=== PATIENT | female | born 1965 | race Caucasian/White ===

== ENCOUNTER 2020-06-29 15:24 | Inpatient (IN) | payer MEDICAID, SELFPAY ==
--- NOTE | 2020-06-29 | ECG_ITS ---
Test Reason : CHEST PAIN Blood Pressure : / mmHG Vent. Rate : 073 BPM Atrial Rate : 073 BPM P-R Int : 106 ms QRS Dur : 086 ms QT Int : 414 ms P-R-T Axes : 025 -20 -10 degrees QTc Int : 456 ms Sinus rhythm with short FL Low voltage QRS ST & T wave abnormality, consider anterior ischemia Abnormal ECG Referred By: Rolanda Juan Electronically Signed By:MARIA VICTORIA MONTOYA MD
[2020-06-29 15:48] VITALS: BP 100/40; BP 101/39; PULSE 70; PULSE 77; RESP 18; TEMP 36.6; O2SAT 94; O2SAT 98; BMI 40.6
--- NOTE | 2020-06-29 16:06 | PC.NURSE ---
pt changed over in hospital attire, noticeable left leg shorting pt states that few days ago started with pain and unable to move the leg and having hip area pain as well
--- NOTE | 2020-06-29 16:09 | XR_ITS ---
EXAMINATION: XR CHEST CLINICAL INFORMATION: Chest pain COMPARISON: None TECHNIQUE: Frontal view of the chest was obtained. FINDINGS: The cardiac and mediastinal contours are normal. There is a atelectasis or infiltrate at the left lung base. There may be subsegmental atelectasis at the right lung base as well. There is no pleural effusion or pneumothorax. There is a right jugular port with tip projecting over the SVC. There are degenerative changes of the spine. XR/XR chest 1V IMPRESSION: Atelectasis or infiltrate at the left lung base. Subsegmental atelectasis at the right lung base.
--- NOTE | 2020-06-29 16:09 | ECG_ITS ---
Test Reason : PE Blood Pressure : / mmHG Vent. Rate : 083 BPM Atrial Rate : 083 BPM P-R Int : 126 ms QRS Dur : 088 ms QT Int : 388 ms P-R-T Axes : 086 -24 -10 degrees QTc Int : 455 ms Normal sinus rhythm Anterior T wave inversion Abnormal ECG When compared to the previous EKG of No significant changes seen Referred By: Rolanda Juan Electronically Signed By:MARIA VICTORIA MONTOYA MD
--- NOTE | 2020-06-29 16:17 | ED_ITS ---
HPI - Chest Pain General Chief Complaint: Chest Pain Stated Complaint: chest pain Time Seen by Provider: 06/29/20 16:08 Source: patient Mode of arrival: EMS Limitations: no limitations History of Present Illness HPI narrative: 55-year-old female with history of metastatic pancreatic cancer, presented today with right side chest pain with right arm tingling started around 2 hours before presentation, patient also had port a cath placed yesterday in the right chest wall, patient never had chest pain before the Por t-A-Cath placement. Patient describes the pain as intermittent pain, described as dull aches on the right side, no radiation (tingling in the right arm), no other associated symptoms, pain is not exertional related, no other associated symptoms no shortness of breath. Patient also complaining of left lower extremities pain for a while, patient unable to ambulate, patient stated that no fall or trauma. Patient was seen recently at [facility] ER for left lower extremities pain and unable to ambulate on June 25 (record was requested). Related Data Home Medications Medication Instructions Recorded Confirmed acetaminophen 650 mg Q4-5H PRN 06/29/20 06/29/20 albuterol sulfate [ProAir HFA] INHALATION PRN 06/29/20 apixaban 5 mg PO BID 06/29/20 06/29/20 atorvastatin 20 mg PO BEDTIME 06/29/20 06/29/20 metformin 1,000 mg PO BID 06/29/20 06/29/20 metoprolol tartrate 50 mg PO BID 06/29/20 06/29/20 morphine 15 mg PO Q12H 06/29/20 06/30/20 morphine 15 mg PO Q4H PRN 06/29/20 06/30/20 morphine 30 mg PO Q12H 06/29/20 06/30/20 multivitamin 1 tab PO DAILY 06/29/20 06/30/20 sitagliptin [Januvia] 100 mg PO DAILY 06/29/20 06/29/20 Allergies Allergy/AdvReac Type Severity Reaction Status Date / Time aspirin [ASA] Allergy Unknown Verified 06/29/20 15:54 erythromycin base Allergy Itching Verified 06/29/20 15:54 latex Allergy Itching Verified 06/29/20 15:54 Penicillins Allergy Itching Verified 06/29/20 15:54 Review of Systems Review of Systems: All other systems are reviewed and are negative Constitutional: Reports as per HPI and Reports no additional constitutional complaints Eyes: Reports as per HPI and Reports no additional eye complaints Reports system reviewed and no additional complaints, except as documented Cardiovascular: Reports as per HPI and Reports no additional cardiovascular complaints Respiratory: Reports as per HPI and Reports no additional respiratory complaints Gastrointestinal: Reports as per HPI and Reports no additional gastrointestinal complaints Genitourinary: Reports no additional female genitourinary complaints Musculoskeletal: Patient had left lower extremity pain for about 6 months. Skin/Breast: Reports system reviewed and no additional complaints, except as docu Psychiatric: Reports no additional psychiatric complaints Endocrine: Reports no additional endocrine complaints Hematologic/Lymphatic: Reports no additional hematologic/lymphatic complaints Allergic/Immunologic: Reports no additional allergic/immunologic complaints Reports system reviewed and no additional complaints, except as documented and Reports Abnormal speech present [facility] Past Medical History Medical History Diabetic acidosis High cholesterol Neoplasm Social History Social History Alcohol intake: never Smoking Status: Never smoker Use of substances other than those prescribed or required for medical reasons: No Advance Directives: No Advance Directives Information Provided: Yes Physical Exam Vital Signs: Vital Signs: Last Vital Signs Temp 97.8 F 06/29/20 15:48 Pulse 80 06/29/20 22:50 Resp 17 06/29/20 22:50 BP 95/45 L 06/29/20 22:50 Pulse Ox 99 06/29/20 22:50 Body Mass Index 38.7 Vital signs have been reviewed as normal and appeared to be correct. Blood pressure normal. Heart rate normal. Respiration rate normal. Temperature normal. Oxygen saturation normal. Appearance: Alert. Oriented X3. No acute distress. Head: Normal external exam. Normocephalic. Atraumatic. No Coello signs noted. No raccoon eyes noted Eyes: PERRLA. EOMI. Conjunctiva and sclera normal. Eyelids normal. ENT: EAC normal. TM's Normal. Pharynx normal. Uvula midline. Moist mucous membranes. No trismus noted. No drooling noted. No muffled voice noted. Neck: Normal inspection. Neck supple. FROM. No adenopathy. Thyroid Normal. No meningeal signs. No neck mass noted. CVS: Normal heart rate and rhythm. Heart sound normal. No murmurs noted. Pulses normal throughout. Respiratory: Right chest wall port a cath, incision appeared dry and clean and intact, mild ecchymosis around the area, mild focal tenderness. No respiratory distress. Painless inspiration. Breath sounds normal. No wheezes/rales/rhonchi noted. No accessory muscle usage noted or decreased air movement noted. Abdomen: Soft and nontender. Bowel sounds normal in all 4 quadrants. No distention noted. No organomegaly noted. No visible injury noted. Back: No CVA tenderness. Full range of motion noted. Skin: Skin warm and dry. Normal skin color. Normal skin turgor. No rashes/lesions/lacerations noted. Extremities: No lower extremity edema. Extremities exhibit normal range of motion. Extremities nontender. Neuro: Oriented X 3. No motor deficit. No sensory deficit. Reflexes normal. Course Course Course Narrative: Assessment and plan. 55-year-old female with history of metastatic pancreatic cancer presented with right-sided chest pain, patient also complained of left hip pain with no history of trauma or fall. 1. Small peripheral pulmonary emboli, will start patient on heparin. 2. Pathological fracture of left hip, case discussed with ortho will admit the patient for possible surgical repair of the left hip. 3. Leukocytosis waiting for UA to determine if it is secondary to infection or secondary to chemotherapy. Will admit the patient to the medical service with orthopedic consultation. Reevaluation(s) Reevaluation #1: Patient with borderline hypotension, IV fluid was initiated, patient with leukocytosis and slight elevation of lactic acid which is secondary to patient malignancy status, no source of infection was detected. Time: 23:09 Reevaluation #2: Records was obtained from [facility], patient had white count of 24,000, 4 days ago, and indicated systolic blood pressure in the 90s. As probably at baseline for the patient. Reevaluation #3: Patient is on a Eliquis (patient was not aware), heparin drip will be discontinued. Time: 02:12 MDM - Chest Pain Lab Data Result diagrams: 06/29/20 17:37 06/29/20 17:37 Labs: Lab Results 06/29/20 06/29/20 06/29/20 Range/Units 17:37 17:37 17:37 WBC 26.9 H (4.8-10.8) X10*3/uL RBC 3.95 L (4.20-5.50) X10*6/uL Hgb 9.3 L (12.0-16.0) g/dl Hct 30.3 L (37-47) % MCV 76.7 L (80-98) fL MCH 23.5 L (27.0-33.0) pg MCHC 30.7 L (31.0-35.0) g/dl RDW 24.6 H (11.0-16.0) % Plt Count 146 L (160-400) X10*3/uL MPV Not Reportable Immature Gran % (Auto) 1.4 H (0.0-0.4) % Neut % (Auto) 90.7 H (45-73) % Lymph % (Auto) 3.2 L (20-40) % [place] % (Auto) 4.6 (2-11) % Eos % (Auto) 0.0 (0-4) % Baso % (Auto) 0.1 (0-2) % Lymph # (Auto) 0.9 L (1.2-4.9) X10*3/uL [place] # (Auto) 1.2 (0.1-1.2) X10*3/uL Eos # (Auto) 0.0 (0.0-0.4) X10*3/uL Baso # (Auto) 0.0 (0.0-0.2) X10*3/uL Abs Immat Gran (auto) 0.39 H (0.00-0.03) X10*3/uL Absolute Neuts (auto) 24.4 H (2.0-8.3) X10*3/uL Absolute Nucleated RBC 0.030 H (0.0-0.012) X10*3/uL Nucleated RBC % (auto) 0.1 (0.0-0.2) /100WBC Smear Tech's Comments VERIFIED PT 35.2 H (10.8-13.0) SEC INR 2.9 H (0.9-1.1) APTT 26.8 (24.1-38.0) SEC D-Dimer 3723 NG/ML Sodium 133 L (135-145) mmol/L Potassium 4.2 (3.3-5.1) mmol/l Chloride 92 L (96-108) mmol/L Carbon Dioxide 32 H (22-29) mmol/L Anion Gap 13 (12-20) BUN 22 H (9-16) mg/dL Creatinine 0.67 (0.5-1.4) mg/dL Estim Creat Clear Calc 100.0 Estimated GFR > 60 Random Glucose 193 H (60-115) mg/dL Lactic Acid (0.5-2.0) mmol/L Lactic Acid Fup @ 2Hr (0.5-2.0) mmol/L Lactic Acid Fup @ 4Hr (0.5-2.0) mmol/L Calcium 8.2 L (8.4-10.2) mg/dL Total Bilirubin 1.4 H (0.0-1.0) mg/dL Direct Bilirubin 1.1 H (0.0-0.5) mg/dL AST 94 H (5-31) U/L ALT 33 H (0-31) U/L Alkaline Phosphatase 718 H (39-117) U/L Troponin I High Sens (<3.5-17.0) ng/L B-Natriuretic Peptide (<100) pg/mL Total Protein 5.3 L (6.5-8.0) g/dL Albumin 2.5 L (3.5-5.0) g/dL Lipase 7 L (8-78) U/L Urine Color Urine Appearance Urine pH (5.0-8.0) Ur Specific [place] (1.005-1.025) Urine Protein (NEG-TRACE) MG/DL Urine Glucose (UA) (NEG) MG/DL Urine Ketones (NEG) MG/DL Urine Blood (NEG) Urine Nitrite (NEG) Ur Leukocyte Esterase (NEG) Urine RBC (0) /HPF Urine WBC (0-4) /HPF Ur Squamous Epith Cells /LPF Urine Bacteria /LPF COVID-19 (MARCELO) (Negative) COVID-19 Clin Com Blood Type Antibody Screen 06/29/20 06/29/20 06/29/20 Range/Units 17:37 19:46 21:59 WBC (4.8-10.8) X10*3/uL RBC (4.20-5.50) X10*6/uL Hgb (12.0-16.0) g/dl Hct (37-47) % MCV (80-98) fL MCH (27.0-33.0) pg MCHC (31.0-35.0) g/dl RDW (11.0-16.0) % Plt Count (160-400) X10*3/uL MPV Immature Gran % (Auto) (0.0-0.4) % Neut % (Auto) (45-73) % Lymph % (Auto) (20-40) % [place] % (Auto) (2-11) % Eos % (Auto) (0-4) % Baso % (Auto) (0-2) % Lymph # (Auto) (1.2-4.9) X10*3/uL [place] # (Auto) (0.1-1.2) X10*3/uL Eos # (Auto) (0.0-0.4) X10*3/uL Baso # (Auto) (0.0-0.2) X10*3/uL Abs Immat Gran (auto) (0.00-0.03) X10*3/uL Absolute Neuts (auto) (2.0-8.3) X10*3/uL Absolute Nucleated RBC (0.0-0.012) X10*3/uL Nucleated RBC % (auto) (0.0-0.2) /100WBC Smear Tech's Comments PT (10.8-13.0) SEC INR (0.9-1.1) APTT (24.1-38.0) SEC D-Dimer NG/ML Sodium (135-145) mmol/L Potassium (3.3-5.1) mmol/l Chloride (96-108) mmol/L Carbon Dioxide (22-29) mmol/L Anion Gap (12-20) BUN (9-16) mg/dL Creatinine (0.5-1.4) mg/dL Estim Creat Clear Calc Estimated GFR Random Glucose (60-115) mg/dL Lactic Acid 2.6 H* (0.5-2.0) mmol/L Lactic Acid Fup @ 2Hr (0.5-2.0) mmol/L Lactic Acid Fup @ 4Hr (0.5-2.0) mmol/L Calcium (8.4-10.2) mg/dL Total Bilirubin (0.0-1.0) mg/dL Direct Bilirubin (0.0-0.5) mg/dL AST (5-31) U/L ALT (0-31) U/L Alkaline Phosphatase (39-117) U/L Troponin I High Sens 11.2 (<3.5-17.0) ng/L B-Natriuretic Peptide 306 H (<100) pg/mL Total Protein (6.5-8.0) g/dL Albumin (3.5-5.0) g/dL Lipase (8-78) U/L Urine Color Urine Appearance Urine pH (5.0-8.0) Ur Specific [place] (1.005-1.025) Urine Protein (NEG-TRACE) MG/DL Urine Glucose (UA) (NEG) MG/DL Urine Ketones (NEG) MG/DL Urine Blood (NEG) Urine Nitrite (NEG) Ur Leukocyte Esterase (NEG) Urine RBC (0) /HPF Urine WBC (0-4) /HPF Ur Squamous Epith Cells /LPF Urine Bacteria /LPF COVID-19 (MARCELO) Negative (Negative) COVID-19 Clin Com See Note Blood Type Antibody Screen 06/29/20 06/29/20 06/29/20 Range/Units 21:59 22:26 22:27 WBC (4.8-10.8) X10*3/uL RBC (4.20-5.50) X10*6/uL Hgb (12.0-16.0) g/dl Hct (37-47) % MCV (80-98) fL MCH (27.0-33.0) pg MCHC (31.0-35.0) g/dl RDW (11.0-16.0) % Plt Count (160-400) X10*3/uL MPV Immature Gran % (Auto) (0.0-0.4) % Neut % (Auto) (45-73) % Lymph % (Auto) (20-40) % [place] % (Auto) (2-11) % Eos % (Auto) (0-4) % Baso % (Auto) (0-2) % Lymph # (Auto) (1.2-4.9) X10*3/uL [place] # (Auto) (0.1-1.2) X10*3/uL Eos # (Auto) (0.0-0.4) X10*3/uL Baso # (Auto) (0.0-0.2) X10*3/uL Abs Immat Gran (auto) (0.00-0.03) X10*3/uL Absolute Neuts (auto) (2.0-8.3) X10*3/uL Absolute Nucleated RBC (0.0-0.012) X10*3/uL Nucleated RBC % (auto) (0.0-0.2) /100WBC Smear Tech's Comments PT (10.8-13.0) SEC INR (0.9-1.1) APTT (24.1-38.0) SEC D-Dimer NG/ML Sodium (135-145) mmol/L Potassium (3.3-5.1) mmol/l Chloride (96-108) mmol/L Carbon Dioxide (22-29) mmol/L Anion Gap (12-20) BUN (9-16) mg/dL Creatinine (0.5-1.4) mg/dL Estim Creat Clear Calc Estimated GFR Random Glucose (60-115) mg/dL Lactic Acid (0.5-2.0) mmol/L Lactic Acid Fup @ 2Hr 2.5 H* (0.5-2.0) mmol/L Lactic Acid Fup @ 4Hr (0.5-2.0) mmol/L Calcium (8.4-10.2) mg/dL Total Bilirubin (0.0-1.0) mg/dL Direct Bilirubin (0.0-0.5) mg/dL AST (5-31) U/L ALT (0-31) U/L Alkaline Phosphatase (39-117) U/L Troponin I High Sens (<3.5-17.0) ng/L B-Natriuretic Peptide (<100) pg/mL Total Protein (6.5-8.0) g/dL Albumin (3.5-5.0) g/dL Lipase (8-78) U/L Urine Color YELLOW Urine Appearance CLEAR Urine pH 5.5 (5.0-8.0) Ur Specific [place] 1.020 (1.005-1.025) Urine Protein NEG (NEG-TRACE) MG/DL Urine Glucose (UA) NEG (NEG) MG/DL Urine Ketones NEG (NEG) MG/DL Urine Blood 1+ H (NEG) Urine Nitrite NEG (NEG) Ur Leukocyte Esterase NEG (NEG) Urine RBC 0-2 (0) /HPF Urine WBC 0 (0-4) /HPF Ur Squamous Epith Cells TRACE /LPF Urine Bacteria NONE /LPF COVID-19 (MARCELO) (Negative) COVID-19 Clin Com Blood Type O Negative Antibody Screen NEGATIVE 06/30/20 Range/Units 01:11 WBC (4.8-10.8) X10*3/uL RBC (4.20-5.50) X10*6/uL Hgb (12.0-16.0) g/dl Hct (37-47) % MCV (80-98) fL MCH (27.0-33.0) pg MCHC (31.0-35.0) g/dl RDW (11.0-16.0) % Plt Count (160-400) X10*3/uL MPV Immature Gran % (Auto) (0.0-0.4) % Neut % (Auto) (45-73) % Lymph % (Auto) (20-40) % [place] % (Auto) (2-11) % Eos % (Auto) (0-4) % Baso % (Auto) (0-2) % Lymph # (Auto) (1.2-4.9) X10*3/uL [place] # (Auto) (0.1-1.2) X10*3/uL Eos # (Auto) (0.0-0.4) X10*3/uL Baso # (Auto) (0.0-0.2) X10*3/uL Abs Immat Gran (auto) (0.00-0.03) X10*3/uL Absolute Neuts (auto) (2.0-8.3) X10*3/uL Absolute Nucleated RBC (0.0-0.012) X10*3/uL Nucleated RBC % (auto) (0.0-0.2) /100WBC Smear Tech's Comments PT (10.8-13.0) SEC INR (0.9-1.1) APTT (24.1-38.0) SEC D-Dimer NG/ML Sodium (135-145) mmol/L Potassium (3.3-5.1) mmol/l Chloride (96-108) mmol/L Carbon Dioxide (22-29) mmol/L Anion Gap (12-20) BUN (9-16) mg/dL Creatinine (0.5-1.4) mg/dL Estim Creat Clear Calc Estimated GFR Random Glucose (60-115) mg/dL Lactic Acid (0.5-2.0) mmol/L Lactic Acid Fup @ 2Hr (0.5-2.0) mmol/L Lactic Acid Fup @ 4Hr 1.8 (0.5-2.0) mmol/L Calcium (8.4-10.2) mg/dL Total Bilirubin (0.0-1.0) mg/dL Direct Bilirubin (0.0-0.5) mg/dL AST (5-31) U/L ALT (0-31) U/L Alkaline Phosphatase (39-117) U/L Troponin I High Sens (<3.5-17.0) ng/L B-Natriuretic Peptide (<100) pg/mL Total Protein (6.5-8.0) g/dL Albumin (3.5-5.0) g/dL Lipase (8-78) U/L Urine Color Urine Appearance Urine pH (5.0-8.0) Ur Specific [place] (1.005-1.025) Urine Protein (NEG-TRACE) MG/DL Urine Glucose (UA) (NEG) MG/DL Urine Ketones (NEG) MG/DL Urine Blood (NEG) Urine Nitrite (NEG) Ur Leukocyte Esterase (NEG) Urine RBC (0) /HPF Urine WBC (0-4) /HPF Ur Squamous Epith Cells /LPF Urine Bacteria /LPF COVID-19 (MARCELO) (Negative) COVID-19 Clin Com Blood Type Antibody Screen Imaging Data Left hip x-ray: My impression: intertrochanteric left hip fracture which appears pathologic as described above. CTA chest: Radiologist's impression: . Small peripheral pulmonary emboli in the left lower lobe and bilateral upper lobes. No evidence of right heart strain. 2. Extensive bilateral airspace opacities. 3. Small dependent left pleural effusion. 4. Patchy enhancement of the parenchyma of the liver with subcapsular fluid around the liver. The liver is enlarged. 5. Most of the spleen has low density consistent with fluid with only a region of enhancement near the hilum. 6. Free fluid in the abdomen around the spleen. 7. Left adrenal nodule. Discharge Plan Discharge Clinical Impression: Chest pain Qualifiers: Chest pain type: unspecified Qualified Code(s): R07.9 - Chest pain, unspecified Pulmonary embolism Qualifiers: Chronicity: acute Closed fracture of left hip Qualifiers: Encounter type: initial encounter Qualified Code(s): S72.002A - Fracture of unspecified part of neck of left femur, initial encounter for closed fracture Patient Disposition: Admitted As Inpatient
[2020-06-29 17:38] VITALS: BP 94/46; PULSE 77; RESP 18; O2SAT 98
[2020-06-29 17:46] LABS: Basophils Percent Auto 0.1 % (0-2); NRBC Pct Auto 0.1 /100WBC (0.0-0.2); Neutrophils Percent Auto 90.7 % (45-73); SCAN SMEAR FLAG 1
[2020-06-29 17:48] LABS: Hematocrit 30.3 % (37-47); Hemoglobin 9.3 g/dl (12.0-16.0); Imm Gran Abs Auto 0.39 X10*3/uL (0.00-0.03); Imm Gran Pct Auto 1.4 % (0.0-0.4); Lymphocytes Absolute Auto 0.9 X10*3/uL (1.2-4.9); Lymphocytes Percent Auto 3.2 % (20-40); Mean Corpuscular HGB Conc 30.7 g/dl (31.0-35.0); Mean Corpuscular Hemoglobin 23.5 pg (27.0-33.0); Mean Corpuscular Volume 76.7 fL (80-98); Monocytes Absolute Auto 1.2 X10*3/uL (0.1-1.2); Monocytes Percent Auto 4.6 % (2-11); Neutrophils Absolute Auto 24.4 X10*3/uL (2.0-8.3); Platelet Count 146 X10*3/uL (160-400); Red Blood Count 3.95 X10*6/uL (4.20-5.50); Red Cell Distribution Width 24.6 % (11.0-16.0); White Blood Count 26.9 X10*3/uL (4.8-10.8)
[2020-06-29 17:50] LABS: MANUAL DIFF FLAG SCAN; PLT ABN DIST 1
--- NOTE | 2020-06-29 17:51 | XR_ITS ---
EXAMINATION: XR HIP, LEFT CLINICAL INFORMATION: Left hip pain. No trauma. History of metastatic disease. COMPARISON: None TECHNIQUE: Single view pelvis with 3 additional views of the left hip. FINDINGS: There is an intertrochanteric fracture of the left hip with marked varus angulation of the distal fracture fragment. The femur itself in this region appears abnormal with a mottled and thickened appearance to its cortex suggesting the possibility of an underlying metastatic lesion and a pathologic fracture. No other bone metastases are seen. No other pelvic fractures are seen. XR/XR hip LT w PEL1V IMPRESSION: Intertrochanteric left hip fracture which appears pathologic as described above.
[2020-06-29 18:03] LABS: D Dimer 3723 NG/ML
--- NOTE | 2020-06-29 18:05 | CT_ITS ---
EXAMINATION: CT ANGIOGRAM CHEST WITH AND WITHOUT CONTRAST (CT PULMONARY ANGIOGRAM FOR PE) CLINICAL INFORMATION: Right-sided chest pain with high elevation of D-dimer. COMPARISON: None TECHNIQUE: Prior to contrast administration, noncontrast localization images were obtained. Subsequently, multidetector volumetric imaging was performed from the thoracic inlet to below the diaphragms following the administration of 65 mL Omnipaque 350 intravenous contrast. No contrast reaction reported. Sagittal, coronal, and MIP oblique sagittal reformatted images were obtained on the CT workstation, uploaded to PACS, and reviewed. This CT examination was performed using dose optimization techniques as appropriate, variously including the following: *Automated exposure control *Adjustment of mA and/or kV according to patient size (this includes techniques or standardized protocols for targeted exams where dose is matched to indication/reason for exam; i.e. extremities or head) *Use of iterative reconstruction technique Total exam dose-length product 491 mGy-cm FINDINGS: QUALITY OF STUDY/CONTRAST BOLUS: Satisfactory. PULMONARY ARTERIES: There is a small pulmonary embolus in the left lower lobe tertiary branch. There is a small pulmonary embolus in the left upper lobe and right upper lobe peripheral branches of the pulmonary artery. THORACIC AORTA: No aneurysm or dissection. LUNGS: There are multifocal patchy alveolar airspace opacities involving all lobes. There is consolidation and volume loss at the dependent left lung base. PLEURA: There is a small volume left pleural effusion. MEDIASTINUM: The heart size is enlarged. There is no pericardial effusion. No mediastinal mass or significant lymphadenopathy. The thyroid is unremarkable. No evidence of septal bowing or right heart strain. CHEST WALL/AXILLAE: No axillary or internal mammary lymphadenopathy. OSSEOUS STRUCTURES: No acute or suspicious osseous abnormality. UPPER ABDOMEN: There is no evidence of contrast refluxing into the inferior vena cava to suggest elevated right heart pressure. The liver is enlarged. There is heterogeneous low attenuation of liver parenchyma. There is subcapsular fluid around the right lobe of the liver. This measures about 2 cm transverse. There is only a small region of enhancement of the central portion of the spleen. The spleen has a density measurement of 12 Hounsfield units consistent with fluid. The spleen is enlarged. There is streaky fluid around the spleen. The left adrenal gland is enlarged. There is a nodule measuring 1.8 cm transverse. The right adrenal gland is normal. There are vascular calcifications of the splenic artery. CT/CT angio chest PE protocol IMPRESSION: 1. Small peripheral pulmonary emboli in the left lower lobe and bilateral upper lobes. No evidence of right heart strain. 2. Extensive bilateral airspace opacities. 3. Small dependent left pleural effusion. 4. Patchy enhancement of the parenchyma of the liver with subcapsular fluid around the liver. The liver is enlarged. 5. Most of the spleen has low density consistent with fluid with only a region of enhancement near the hilum. 6. Free fluid in the abdomen around the spleen. 7. Left adrenal nodule. This critical result was discussed with Dr. Juan on 06/29/2020, 8:00 PM and it was ascertained that the content and urgency of the report was understood at the time of direct communication. VTE: Positive
[2020-06-29 18:06] LABS: SLIDE REVIEW VERIFIED
[2020-06-29 18:28] LABS: B Type Natriuretic Peptide 306 pg/mL (<100); Troponin-I High Sensitivity 11.2 ng/L (<3.5-17.0)
[2020-06-29 18:29] LABS: Alanine Aminotransferase 33 U/L (0-31); Albumin Level 2.5 g/dL (3.5-5.0); Alkaline Phosphatase 718 U/L (39-117); Anion Gap 13 (12-20); Aspartate Amino Transferase 94 U/L (5-31); Bilirubin Direct 1.1 mg/dL (0.0-0.5); Bilirubin Total 1.4 mg/dL (0.0-1.0); Blood Urea Nitrogen 22 mg/dL (9-16); Calcium 8.2 mg/dL (8.4-10.2); Carbon Dioxide 32 mmol/L (22-29); Chloride 92 mmol/L (96-108); Estimated Glomerular Filt Rate > 60; Glucose Random 193 mg/dL (60-115); Lipase 7 U/L (8-78); Potassium 4.2 mmol/l (3.3-5.1); Sodium 133 mmol/L (135-145); Total Protein 5.3 g/dL (6.5-8.0)
[2020-06-29] MEDS: iohexoL 350 MG/ML 100 ML INFUS..BTL IV (18:52)
[2020-06-29 20:29] LABS: Lactic Acid 2.6 mmol/L (0.5-2.0)
--- NOTE | 2020-06-29 20:31 | PC.NURSE ---
CONFIRMED HEPARIN IV PUSH AND DRIP WITH PHARMACY, OKAYED TO GIVE. LACTIC ACID 2.6. AWARE.
[2020-06-29 20:35] VITALS: BMI 38.7
[2020-06-29 20:37] LABS: INTERNATIONAL NORM RATIO 2.9 (0.9-1.1); Prothrombin Time 35.2 SEC (10.8-13.0)
[2020-06-29 20:40] LABS: Partial Thromboplastin Time 26.8 SEC (24.1-38.0)
[2020-06-29] MEDS: Heparin Sodium,Porcine 5,000 UNIT/ML VIAL 7448 UNIT IVPUSH (21:10)
--- NOTE | 2020-06-29 21:24 | PM.HPOR ---
History of Present Illness History of Present Illness Date of Service: 06/29/20 Chief complaint: chest pain Narrative: Edyta Anderson is a 55 year old female who presented to the ED earlier today with cc of right sided chest pain s/p port placement yesterday. She has a PMH of Pancreatic cancer with mets to the liver and lungs. She states she was diagnosed in October of 2019. She states about 5 months ago she started having pain in the left hip. She denies injury. She states up until right before [place] she was able to ambulate until one day she got up to use the bathroom and she noticed increased pain in the left hip and when she went to get off the toilet she was unable to do so. She called her roommate who tried to help and was unsuccessful. EMS was called and she was transported to [facility]. The Patient states while at [facility], she was evaluated, but does not recall having a workup for left hip pain/fracture. She was sent to [facility] in [place] for Rehab. She states they attempted to work with her on PT for the extremities but she states she continuously could not move the left hip or leg in the same fashion as the right. She states she recently began treatment for cancer and had a port placed yesterday. Today she develoiped right sided chest pain which prompted her to come to the ED for an eval. While in the ED, it was noted her left leg was shortened. Xrays were taken and it was found she has an intertrochanteric fracture of the left femur. Given her extensive PMH, she will be admitted to the medical service and orthopedics consulted for further evaluation and treatment. Review of Systems Review of Systems: Yes all other systems are reviewed and are negative PMFSH Past Medical History Medical History Diabetic acidosis High cholesterol Neoplasm Social History Social History Alcohol intake: never Smoking Status: Never smoker Use of substances other than those prescribed or required for medical reasons: No Advance Directives: No Advance Directives Information Provided: Yes Meds Allergies Allergy/AdvReac Type Severity Reaction Status Date / Time aspirin [ASA] Allergy Unknown Verified 06/29/20 15:54 erythromycin base Allergy Itching Verified 06/29/20 15:54 latex Allergy Itching Verified 06/29/20 15:54 Penicillins Allergy Itching Verified 06/29/20 15:54 Physical Exam Vital Signs: Vital Signs: Last Vital Signs Temp 97.8 F 06/29/20 15:48 Pulse 77 06/29/20 17:38 Resp 18 06/29/20 17:38 BP 94/46 L 06/29/20 17:38 Pulse Ox 98 06/29/20 17:38 Body Mass Index 38.7 Const: General: cooperative, healthy appearing, comfortable, no acute distress, well developed and alert Orientation/consciousness: patient oriented x3 HENMT: Head: Yes normal to inspection, Yes normocephalic and Yes atraumatic Eyes: General: appearance normal, both eyes and all related structures Neck: Neck: Yes normal visual inspection and Yes no lymphadenopathy Resp: Effort & Inspection: normal respiratory effort and able to speak in complete sentences Cardio: Rate: regular rate Peripheral pulses: Peripheral pulses 2+ throughout GI: Inspection: Yes normal to inspection Palpation (GI): Soft to palpation Skin: General skin exam: no rashes or lesions noted Neuro: General: patient oriented x3 Extrem: Other: Left hip skin intact, no erythema or open wounds. Tenderness along the lateral aspect of the hip and pain with log roll. She has motion of the ankle and toes but unable to lift the leg. NVI. Xrays of the left hip/pelvis demonstrate displaced intertrochanteric fracture of the left femur, reason to believe this may be pathologic. Psych: Appearance: grossly normal Results Labs Result Diagrams: 06/29/20 17:37 06/29/20 17:37 Labs: Abnormal lab results 06/29/20 06/29/20 06/29/20 Range/Units 17:37 17:37 17:37 WBC 26.9 H (4.8-10.8) X10*3/uL RBC 3.95 L (4.20-5.50) X10*6/uL Hgb 9.3 L (12.0-16.0) g/dl Hct 30.3 L (37-47) % MCV 76.7 L (80-98) fL MCH 23.5 L (27.0-33.0) pg MCHC 30.7 L (31.0-35.0) g/dl RDW 24.6 H (11.0-16.0) % Plt Count 146 L (160-400) X10*3/uL Immature Gran % (Auto) 1.4 H (0.0-0.4) % Neut % (Auto) 90.7 H (45-73) % Lymph % (Auto) 3.2 L (20-40) % Lymph # (Auto) 0.9 L (1.2-4.9) X10*3/uL Abs Immat Gran (auto) 0.39 H (0.00-0.03) X10*3/uL Absolute Neuts (auto) 24.4 H (2.0-8.3) X10*3/uL Absolute Nucleated RBC 0.030 H (0.0-0.012) X10*3/uL PT 35.2 H (10.8-13.0) SEC INR 2.9 H (0.9-1.1) Sodium 133 L (135-145) mmol/L Chloride 92 L (96-108) mmol/L Carbon Dioxide 32 H (22-29) mmol/L BUN 22 H (9-16) mg/dL Random Glucose 193 H (60-115) mg/dL Lactic Acid (0.5-2.0) mmol/L Calcium 8.2 L (8.4-10.2) mg/dL Total Bilirubin 1.4 H (0.0-1.0) mg/dL Direct Bilirubin 1.1 H (0.0-0.5) mg/dL AST 94 H (5-31) U/L ALT 33 H (0-31) U/L Alkaline Phosphatase 718 H (39-117) U/L B-Natriuretic Peptide (<100) pg/mL Total Protein 5.3 L (6.5-8.0) g/dL Albumin 2.5 L (3.5-5.0) g/dL Lipase 7 L (8-78) U/L 06/29/20 06/29/20 Range/Units 17:37 19:46 WBC (4.8-10.8) X10*3/uL RBC (4.20-5.50) X10*6/uL Hgb (12.0-16.0) g/dl Hct (37-47) % MCV (80-98) fL MCH (27.0-33.0) pg MCHC (31.0-35.0) g/dl RDW (11.0-16.0) % Plt Count (160-400) X10*3/uL Immature Gran % (Auto) (0.0-0.4) % Neut % (Auto) (45-73) % Lymph % (Auto) (20-40) % Lymph # (Auto) (1.2-4.9) X10*3/uL Abs Immat Gran (auto) (0.00-0.03) X10*3/uL Absolute Neuts (auto) (2.0-8.3) X10*3/uL Absolute Nucleated RBC (0.0-0.012) X10*3/uL PT (10.8-13.0) SEC INR (0.9-1.1) Sodium (135-145) mmol/L Chloride (96-108) mmol/L Carbon Dioxide (22-29) mmol/L BUN (9-16) mg/dL Random Glucose (60-115) mg/dL Lactic Acid 2.6 H* (0.5-2.0) mmol/L Calcium (8.4-10.2) mg/dL Total Bilirubin (0.0-1.0) mg/dL Direct Bilirubin (0.0-0.5) mg/dL AST (5-31) U/L ALT (0-31) U/L Alkaline Phosphatase (39-117) U/L B-Natriuretic Peptide 306 H (<100) pg/mL Total Protein (6.5-8.0) g/dL Albumin (3.5-5.0) g/dL Lipase (8-78) U/L H & H 06/29/20 Range/Units 17:37 Hgb 9.3 L (12.0-16.0) g/dl Hct 30.3 L (37-47) % Coagulation 06/29/20 Range/Units 17:37 INR 2.9 H (0.9-1.1) All other labs normal. Assessment and Plan (1) Closed fracture of left hip: Qualifiers: Encounter type: initial encounter Qualified Code(s): S72.002A - Fracture of unspecified part of neck of left femur, initial encounter for closed fracture Status: Acute I discussed the case with Dr Arriola and explained the extent of the injury to the patient and options available which include surgical intervention. I explained the procedure in detail along with the length of recovery and rehab course. I explained the risk, benefits and alternatives. Risk including, but not limited to infection, blood clots, bleeding, non union or malunion and nerve/tissue damage to surrounding areas. I also explained to her with her history of cancer, it is unclear how much involvement is in the bones, if any, and unsure what the quality of her bone will be which she does understand. I answered all her questions and with her understanding she has consented to move forward with Operative Fixation of the left hip . The patient with be T&S, med clearance obtained and NPO after midnight.
[2020-06-29 21:51] LABS: Reflex Lactate? Lactic Acid Added
--- NOTE | 2020-06-29 22:00 | PC.NURSE ---
16 CHINESE SOUZA CATHETER INSERTED WITHOUT DIFFICULTY. DRAINING CLEAR YELLOW URINE INTO BAG AT THIS TIME. LEFT HIP FRACTURE PRECAUTIONS, SUPINE POSITION AT THIS TIME. WILL CONTINUE TO MONITOR.
[2020-06-29 22:27] LABS: Glucose Urine UA NEG (NEG); Leukocyte Esterase Urine NEG (NEG); Nitrite Urine NEG (NEG); PH 5.5 (5.0-8.0); Urine Blood 1+ (NEG); Urine Ketones NEG (NEG); Urine Protein NEG (NEG-TRACE)
[2020-06-29 22:30] VITALS: BP 87/36; PULSE 80; RESP 16
[2020-06-29 22:37] LABS: COVID-19 Test Negative (Negative)
[2020-06-29 22:40] LABS: Appearance Urine CLEAR; Color Urine YELLOW
[2020-06-29] MEDS: 0.9 % Sodium Chloride 1,000 ML 999 ML IVCONT (22:49)
[2020-06-29 22:50] VITALS: BP 95/45; PULSE 80; RESP 17; O2SAT 99
--- NOTE | 2020-06-29 22:59 | PC.NURSE ---
Pt repositioned for comfort. IVF up as ordered for soft BP. Port a cath accessed without difficulty. Pt is A&ox3, appears to be mentating at baseline. SR on monitor, no acute distress noted at this time
[2020-06-29 23:00] LABS: RBC Urine 0-2 /HPF (0); Squamous Epithelial Cell Urine TRACE /LPF; WBC Urine 0 /HPF (0-4)
[2020-06-29 23:05] LABS: ~Lactic Acid-LAB USE ONLY 2.5 mmol/L (0.5-2.0)
[2020-06-30] MEDS: 0.9 % Sodium Chloride 1,000 ML 999 ML IVCONT (00:12)
[2020-06-30 00:39] LABS: Reflex Lactate? 2 Y
--- NOTE | 2020-06-30 01:32 | P.HPHOSP_ITS ---
History of Present Illness Date of Service: 06/30/20 Chief Complaint: Left hip pain, general weakness, chest wall pain A 55 years old lady with PMH of endometrial cancer post hysterectomy, metastatic pancreatic cancer on chemo, diabetes, DVT on Eliquis who presents to the hospital for increase left hip pain. The patient reported she was diagnosed with pancreatic cancer around October 2019. For the last 3-4 months she started noticing left-sided hip pain. She was evaluated for that at [facility] last month with no clear reason identified. Today she went to use her bathroom and she was unable to get if the toilet as a result of that requiring help. EMS called and brought the patient to the emergency. She reports starting chemotherapy cycle yesterday. She also reports placement of MediPort yesterday. She is not sure if that was used or not but she reports chest pain a earlier today around that area which is resolved at time of presentation. Mainly right-sided and burning in nature. Not associated with any nausea, vomiting, sweating or palpitation. In the emergency, an x-ray for hip showed intertrochanteric fracture of left femur which is likely pathological in nature secondary to metastasis. She was noted to have low blood pressure readings in the emergency. Found to have low blood pressure readings also at [facility] during last admission. INR found to be around 3 as a result of Eliquis usage. Admitted for further evaluation and treatment. Review of Systems Review of Systems: No fever, chills but reports generalized weakness No chest pain, palpitation Baseline shortness of breath with no change or coughing No abdominal pain, nausea or vomiting No urinary symptoms No any rash or wounds Left hip pain with movement PMFSH Medical History Diabetic acidosis High cholesterol Neoplasm Social History Alcohol intake: never Smoking Status: Never smoker Use of substances other than those prescribed or required for medical reasons: No Advance Directives: No Advance Directives Information Provided: Yes Meds Allergies Allergy/AdvReac Type Severity Reaction Status Date / Time aspirin [ASA] Allergy Unknown Verified 06/29/20 15:54 erythromycin base Allergy Itching Verified 06/29/20 15:54 latex Allergy Itching Verified 06/29/20 15:54 Penicillins Allergy Itching Verified 06/29/20 15:54 Home Medications Medication Instructions Recorded Confirmed Type acetaminophen 650 mg Q4-5H PRN 06/29/20 06/29/20 History albuterol sulfate [ProAir HFA] INHALATION PRN 06/29/20 History apixaban 5 mg PO BID 06/29/20 06/29/20 History atorvastatin 20 mg PO BEDTIME 06/29/20 06/29/20 History metformin 1,000 mg PO BID 06/29/20 06/29/20 History metoprolol tartrate 50 mg PO BID 06/29/20 06/29/20 History morphine 15 mg PO Q12H 06/29/20 06/30/20 History morphine 15 mg PO Q4H PRN 06/29/20 06/30/20 History morphine 30 mg PO Q12H 06/29/20 06/30/20 History multivitamin 1 tab PO DAILY 06/29/20 06/30/20 History sitagliptin [Januvia] 100 mg PO DAILY 06/29/20 06/29/20 History Physical Exam Vital Signs and Narrative: Vital Signs: Last Vital Signs Temp 97.8 F 06/29/20 15:48 Pulse 80 06/29/20 22:50 Resp 17 06/29/20 22:50 BP 95/45 L 06/29/20 22:50 Pulse Ox 99 06/29/20 22:50 Body Mass Index 38.7 Constitutional : Alert, oriented, not in distress Neck : Normal inspection, Supple Cardiovascular : RRR, S1 S2, no lower extremity edema Respiratory : Good bilateral air entry, no crackles, wheezes or rhonchi Gastrointestinal: soft, lax, Normal bowel sounds, Non tender Skin : Warm/Dry, No rash Neurological : Alert & oriented x3, No focal deficit Results Labs CBC and Chem 7: 06/29/20 17:37 06/29/20 17:37 Labs: Laboratory Results - last 24 hr 06/29/20 06/29/20 06/29/20 17:37 17:37 17:37 MCV 76.7 L MCH 23.5 L MCHC 30.7 L RDW 24.6 H Plt Count 146 L MPV Not Reportable Immature Gran % (Auto) 1.4 H Neut % (Auto) 90.7 H Lymph % (Auto) 3.2 L [place] % (Auto) 4.6 Eos % (Auto) 0.0 Baso % (Auto) 0.1 Lymph # (Auto) 0.9 L [place] # (Auto) 1.2 Eos # (Auto) 0.0 Baso # (Auto) 0.0 Abs Immat Gran (auto) 0.39 H Absolute Neuts (auto) 24.4 H Absolute Nucleated RBC 0.030 H Nucleated RBC % (auto) 0.1 Smear Tech's Comments VERIFIED PT 35.2 H INR 2.9 H APTT 26.8 D-Dimer 3723 Anion Gap 13 Estim Creat Clear Calc 100.0 Estimated GFR > 60 Random Glucose 193 H Lactic Acid Lactic Acid Fup @ 2Hr Calcium 8.2 L Total Bilirubin 1.4 H Direct Bilirubin 1.1 H AST 94 H ALT 33 H Alkaline Phosphatase 718 H Troponin I High Sens B-Natriuretic Peptide Total Protein 5.3 L Albumin 2.5 L Lipase 7 L Urine Color Urine Appearance Urine pH Ur Specific [place] Urine Protein Urine Glucose (UA) Urine Ketones Urine Blood Urine Nitrite Ur Leukocyte Esterase Urine RBC Urine WBC Ur Squamous Epith Cells Urine Bacteria COVID-19 (MARCELO) COVID-[employer] Com Blood Type Antibody Screen 06/29/20 06/29/20 06/29/20 17:37 19:46 21:59 MCV MCH MCHC RDW Plt Count MPV Immature Gran % (Auto) Neut % (Auto) Lymph % (Auto) [place] % (Auto) Eos % (Auto) Baso % (Auto) Lymph # (Auto) [place] # (Auto) Eos # (Auto) Baso # (Auto) Abs Immat Gran (auto) Absolute Neuts (auto) Absolute Nucleated RBC Nucleated RBC % (auto) Smear Tech's Comments PT INR APTT D-Dimer Anion Gap Estim Creat Clear Calc Estimated GFR Random Glucose Lactic Acid 2.6 H* Lactic Acid Fup @ 2Hr Calcium Total Bilirubin Direct Bilirubin AST ALT Alkaline Phosphatase Troponin I High Sens 11.2 B-Natriuretic Peptide 306 H Total Protein Albumin Lipase Urine Color Urine Appearance Urine pH Ur Specific [place] Urine Protein Urine Glucose (UA) Urine Ketones Urine Blood Urine Nitrite Ur Leukocyte Esterase Urine RBC Urine WBC Ur Squamous Epith Cells Urine Bacteria COVID-19 (MARCELO) Negative COVID-[employer] Com See Note Blood Type Antibody Screen 06/29/20 06/29/20 06/29/20 21:59 22:26 22:27 MCV MCH MCHC RDW Plt Count MPV Immature Gran % (Auto) Neut % (Auto) Lymph % (Auto) [place] % (Auto) Eos % (Auto) Baso % (Auto) Lymph # (Auto) [place] # (Auto) Eos # (Auto) Baso # (Auto) Abs Immat Gran (auto) Absolute Neuts (auto) Absolute Nucleated RBC Nucleated RBC % (auto) Smear Tech's Comments PT INR APTT D-Dimer Anion Gap Estim Creat Clear Calc Estimated GFR Random Glucose Lactic Acid Lactic Acid Fup @ 2Hr 2.5 H* Calcium Total Bilirubin Direct Bilirubin AST ALT Alkaline Phosphatase Troponin I High Sens B-Natriuretic Peptide Total Protein Albumin Lipase Urine Color YELLOW Urine Appearance CLEAR Urine pH 5.5 Ur Specific [place] 1.020 Urine Protein NEG Urine Glucose (UA) NEG Urine Ketones NEG Urine Blood 1+ H Urine Nitrite NEG Ur Leukocyte Esterase NEG Urine RBC 0-2 Urine WBC 0 Ur Squamous Epith Cells TRACE Urine Bacteria NONE COVID-19 (MARCELO) COVID-19 Clin Com Blood Type O Negative Antibody Screen NEGATIVE Imaging Radiologist's Impressions: Impressions Chest X-Ray 06/29/20 16:09 IMPRESSION: Atelectasis or infiltrate at the left lung base. Subsegmental atelectasis at the right lung base. Hip/Pelvis X-Ray 06/29/20 17:51 IMPRESSION: Intertrochanteric left hip fracture which appears pathologic as described above. Chest CTA 06/29/20 18:05 IMPRESSION: 1. Small peripheral pulmonary emboli in the left lower lobe and bilateral upper lobes. No evidence of right heart strain. 2. Extensive bilateral airspace opacities. 3. Small dependent left pleural effusion. 4. Patchy enhancement of the parenchyma of the liver with subcapsular fluid around the liver. The liver is enlarged. 5. Most of the spleen has low density consistent with fluid with only a region of enhancement near the hilum. 6. Free fluid in the abdomen around the spleen. 7. Left adrenal nodule. This critical result was discussed with Dr. Juan on 06/29/2020, 8:00 PM and it was ascertained that the content and urgency of the report was understood at the time of direct communication. VTE: Positive Assessment and Plan (1) Medication induced coagulopathy: Status: Acute (2) Leukocytosis: Status: Acute (3) Closed fracture of left hip: Qualifiers: Encounter type: initial encounter Qualified Code(s): S72.002A - Fractur e of unspecified part of neck of left femur, initial encounter for closed fracture Status: Acute (4) Hypotension: Status: Acute (5) Chronic respiratory failure with hypoxia: Status: Acute (6) Pancreatic carcinoma metastatic to liver: Status: Acute A 55 years old lady with PMH of endometrial cancer post hysterectomy, metastatic pancreatic cancer on chemo, diabetes, DVT on Eliquis who presents to the hospital for increase left hip pain. Preop evaluation None emergency surgery, no ACS, low RCRI score Patient carry moderate to high risk of perioperative complications No further testing needed at this point, can proceed with surgery Patient aware and consent to surgery Left hip close fractures Likely secondary to pathological fractures Orthopedic team input appreciated, plan for surgery Hypotension Seems to be chronic looking add visits to [facility] Hold metoprolol l for now Monitor blood pressure Continue gentle hydration Medication induced coagulopathy INR 2.9 secondary to Eliquis usage Hold Eliquis for now Monitor PT INR Leukocytosis Seems to be chronic looking back at his [facility] visits recently No clear source of infection at this point Continue to monitor any signs of infection Metastatic pancreatic cancer Started cycle 1 of chemo as she reported Hold long-acting morphine To use short-acting morphine p.o. for now Pulmonary embolism Noted on CTA done in ED today Patient has been treated for LLE DVT with Eliquis DC heparin that was started in ED DVT PPX Eliquis, held for overnight
[2020-06-30 01:42] LABS: ~Lactic Acid-LAB USE ONLY 1.8 mmol/L (0.5-2.0)
--- NOTE | 2020-06-30 02:00 | PC.NURSE ---
PER , HEPARIN DRIP TO BE STOPPED NOW. AWARE THAT PATIENT HAS RECEIVED PARTIAL DOSE OF HEPARIN DRIP, AND PREVIOUSLY GIVEN HEPARIN IV PUSH DOSE. PER , CHRONIC DVT, TAKES ELIQUIS AND STATES THE HEPARIN IS NOT NEEDED RIGHT NOW . ALSO AWARE OF THIS. WILL CONTINUE TO MONITOR PATIENT.
[2020-06-30 02:59] VITALS: BP 98/42; PULSE 94; RESP 18; O2SAT 98
--- NOTE | 2020-06-30 03:11 | PC.NURSE ---
2 LITERS OF NORMAL SALINE CONTINUE TO INFUSE ORDERED. INFUSING SLOWLY VIA PORT ACCESS. WILL CONTINUE TO MONITOR.
--- NOTE | 2020-06-30 03:19 | PC.NURSE ---
PATIENT REPORTED NEED TO HAVE BOWEL MOVEMENT, HOWEVER ONLY FLATULENCE NOTED AT THIS TIME. NO BOWEL MOVEMENT IN BEDPAN.
[2020-06-30] MEDS: 0.9 % Sodium Chloride 1,000 ML 100 ML IVCONT (04:35)
[2020-06-30 04:46] LABS: Hematocrit 26.7 % (37-47); Hemoglobin 8.4 g/dl (12.0-16.0)
[2020-06-30] MEDS: Acetaminophen 325 MG TABLET 650 MG PO (06:31)
[2020-06-30] MEDS: Morphine Sulfate Immed Release 15 MG TABLET PO ×3 (06:32→21:33)
[2020-06-30 09:29] VITALS: BP 91/40; PULSE 86; RESP 14; O2SAT 97
[2020-06-30 09:39] LABS: Glucose, Whole Blood 168 mg/dL (60-115)
[2020-06-30 10:00] VITALS: PULSE 98; RESP 14; O2SAT 97
[2020-06-30 12:41] LABS: INTERNATIONAL NORM RATIO 3.2 (0.9-1.1); Prothrombin Time 38.8 SEC (10.8-13.0)
[2020-06-30 13:11] LABS: Anion Gap 14 (12-20); Blood Urea Nitrogen 19 mg/dL (9-16); Calcium 7.5 mg/dL (8.4-10.2); Carbon Dioxide 27 mmol/L (22-29); Chloride 97 mmol/L (96-108); Creatinine Clr Calc Pharmacy 123.3; Estimated Glomerular Filt Rate > 60; Glucose Random 179 mg/dL (60-115); Sodium 134 mmol/L (135-145)
[2020-06-30 15:18] VITALS: BP 97/52; PULSE 96; RESP 17; O2SAT 99
--- NOTE | 2020-06-30 16:28 | PC.NURSE ---
MEDICATED FOR PAIN AND REPOSITIONED. WATER AND GINGERALE GIVEN
--- NOTE | 2020-06-30 19:28 | PC.NURSE ---
REPORT TAKEN FROM ANUSHA FORD, FIRST CONTACT WITH PT. RESTING IN BED SKIN PALE WARM AND DRY, VSS. OFFERS NO COMPLAINTS AT THIS TIME. AWAITING BED ASSIGNMENT FOR ADMISSION.
[2020-06-30 21:31] LABS: Glucose, Whole Blood 174 mg/dL (60-115)
[2020-06-30] MEDS: Atorvastatin Calcium 20 MG TABLET PO (22:10)
[2020-06-30 22:14] VITALS: BP 113/60; PULSE 101; RESP 18; TEMP 36.7; O2SAT 98
--- NOTE | 2020-06-30 22:24 | PC.NURSE ---
PT MEDICATED PER MAR, PO FLUIDS GIVEN, REPORTS 7/10 PAIN, LESS WHEN NOT MOVING. PREVIOUSLY MEDICATED FOR PAIN BY FLOYESY RN. VSS. AWAITING BED ASSIGNMENT FOR ADMISSION. WARM BLANKET GIVEN AND LIGHTS DIMMED.
--- NOTE | 2020-06-30 22:41 | PC.NURSE ---
SPOKE WITH HOSPITALIST REGARDING DELAY OF SURGERY AND NPO DIET. NEW ORDER FOR DIET. PT GIVEN SNACK AT THIS TIME.
[2020-07-01] VITALS (10 sets, daily range): BP systolic 95–111; BP diastolic 50–62; PULSE 86–98; RESP 14–20; TEMP 36.5–37.2; O2SAT 92–99; BMI 39.5
[2020-07-01] MEDS: Acetaminophen 325 MG TABLET 650 MG PO ×3 (01:43→16:30)
[2020-07-01] MEDS: Morphine Sulfate Immed Release 15 MG TABLET PO ×4 (01:43→21:23)
[2020-07-01] MEDS: 0.9 % Sodium Chloride Flush 3 ML SYRINGE IVFLUSH ×3 (01:46→15:30)
[2020-07-01 08:38] LABS: Glucose, Whole Blood 172 mg/dL (60-115)
[2020-07-01] MEDS: Insulin Lispro 100 UNIT/ML 3 ML VIAL SUBCUT ×3 (08:45→21:22)
--- NOTE | 2020-07-01 08:53 | PC.NURSE ---
pt refused breakfast, drinking fluids. pt states surgery to l hip in am. eliklaus held by this rn.
--- NOTE | 2020-07-01 09:38 | PM.EVENT ---
Event Note Date of Service: 07/01/20 Event Note: Pt. scheduled for surgery tomorrow. NPO after midnight.
--- NOTE | 2020-07-01 10:57 | P.PNIM_ITS ---
Subjective Subjective Date of Service: 07/01/20 Interval History: Pain is controlled as long as not moving Cardiovascular Cardiovascular: Reports no additional cardiovascular complaints Gastrointestinal Gastrointestinal: Reports no additional gastrointestinal complaints Physical Exam Vital Signs: Vital Signs: Last Vital Signs Temp 97.7 F 07/01/20 08:41 Pulse 94 07/01/20 08:41 Resp 20 07/01/20 08:47 BP 98/60 07/01/20 08:41 Pulse Ox 96 07/01/20 08:41 Body Mass Index 38.7 General: AO X 3, weak Resp: CTA bilateral CVS: S1,S2,RRR GI: soft, non tender, non distended Neuro: motor grossly intact Psych: appropriate affect Objective Data Current Medications Generic Name Dose Route Start Last Admin Trade Name Freq PRN Reason Stop Dose Admin Acetaminophen 650 mg 06/30/20 01:22 07/01/20 08:46 Acetaminophen 325 Mg Tablet PO 650 mg Q6H PRN Administration Pain, Mild (Pain Scale 1-3) Atorvastatin Calcium 20 mg 06/30/20 21:00 06/30/20 22:10 Atorvastatin Calcium 20 Mg Tablet PO 20 mg BEDTIME CARINA Administration Heparin Sodium (Porcine) 7,448 unit 07/01/20 09:15 Heparin Sodium,Porcine 5,000 Unit/Ml Vial 80 unit/kg (7448 unit) IVPUSH BOLUS PRN 80 unit/kg - Heparin Protocol Heparin Sodium (Porcine) 3,724 unit 07/01/20 09:15 Heparin Sodium,Porcine 5,000 Unit/Ml Vial 40 unit/kg (3724 unit) IVPUSH BOLUS PRN HEPARINPRO Cefazolin Sodium/Dextrose 2 gm in 50 mls @ 100 mls/hr 07/02/20 10:36 Ancef IV 07/02/20 11:05 PREOP ONE Heparin Sodium/Sodium Chloride 25,000 unit in 250 mls @ 0 mls/hr 07/01/20 09:15 IVCONT .Q0M [facility] Protocol Per Protocol Insulin Human Lispro 0 unit 06/30/20 11:30 07/01/20 08:45 Insulin Lispro 100 Unit/Ml 3 Ml Vial SUBCUT 2 unit QIDACHS [facility] Administration Protocol Morphine Sulfate 15 mg 06/30/20 01:22 07/01/20 08:47 Morphine Sulfate Immed Release 15 Mg Tablet PO 15 mg Q4H PRN Administration Pain Sodium Chloride 3 ml 06/30/20 08:00 07/01/20 01:46 0.9 % Sodium Chloride Flush 3 Ml Syringe IVFLUSH 3 ml QSHIFT CARINA Administration Labs CBC & Chem 7: 06/30/20 04:42 06/30/20 12:25 Microbiology Microbiology Results: Microbiology 06/29/20 20:24 Blood - Venous Blood Culture - Preliminary No growth after 24 hours. 06/29/20 19:46 Blood - Venous Blood Culture - Preliminary No growth after 24 hours. Assessment and Plan (1) Medication induced coagulopathy: Status: Deleted (2) Leukocytosis: Status: Acute (3) Closed fracture of left hip: Status: Acute (4) Hypotension: Status: Acute (5) Chronic respiratory failure with hypoxia: Status: Acute (6) Pancreatic carcinoma metastatic to liver: Problem details: with osseous and peritoneal mets as well Status: Acute Assessment and Plan: A 55 years old lady with PMH of endometrial cancer post hysterectomy, metastatic pancreatic cancer on chemo, diabetes, DVT on Eliquis who presents to the hospital for increase left hip pain. Left hip close fractures Likely secondary to pathological fractures Orthopedic team input appreciated, plan for surgery 07/02/2020 - postponed due to eliquis, now on hold Hypotension Seems to be chronic looking add visits to [facility] Hold metoprolol l for now Monitor blood pressure Continue gentle hydration Metastatic pancreatic cancer Started cycle 1 of chemo as she reported Hold long-acting morphine To use short-acting morphine p.o. for now DVT/Pulmonary embolism PE Noted on CTA done in ED Patient has been treated for LLE DVT with Eliquis eliquis held for surgery, will put back on heparin drip
[2020-07-01] MEDS: Heparin Sodium,Porcine/1/2NS 25,000 UNIT/250 ML IV.SOLN 13.03 UNIT IVCONT (11:22)
--- NOTE | 2020-07-01 11:30 | PC.NURSE ---
Verified with Dr. Salsa- no heparin bolus prior to infusion.
[2020-07-01 12:59] LABS: Glucose, Whole Blood 189 mg/dL (60-115)
--- NOTE | 2020-07-01 14:21 | PC.NURSE ---
pt insulin 189 coverage of 2 units lispro held at this time. pt did not eat lunch as yet.
[2020-07-01 16:29] LABS: Glucose, Whole Blood 211 mg/dL (60-115)
[2020-07-01 19:06] LABS: PTT Heparin Drip 65.1 SEC (53-77.9)
[2020-07-01 21:05] LABS: Glucose, Whole Blood 156 mg/dL (60-115)
[2020-07-01] MEDS: Atorvastatin Calcium 20 MG TABLET PO (21:23)
--- NOTE | 2020-07-01 21:31 | PC.NURSE ---
PT arrived to [facility] from ED at approximately 2100. Poor report given from ED, unable to answer questions about patients medical history and patient is a poor historian. Medical information obtained from patients chart and what brief backround she could provide. PT in 03/31 pain on arrival, medicated with PO morphine. Heparin gtt running at 14u/kg and 13.03mL/hr.
[2020-07-01 22:09] LABS: Basophils Absolute Auto 0.1 X10*3/uL (0.0-0.2); Basophils Percent Auto 0.2 % (0-2); Eosinophils Absolute Auto 1.3 X10*3/uL (0.0-0.4); Eosinophils Percent Auto 5.5 % (0-4); Hematocrit 27.5 % (37-47); Hemoglobin 8.6 g/dl (12.0-16.0); Imm Gran Abs Auto 0.51 X10*3/uL (0.00-0.03); Imm Gran Pct Auto 2.2 % (0.0-0.4); Lymphocytes Absolute Auto 1.6 X10*3/uL (1.2-4.9); MANUAL DIFF FLAG SCAN; Mean Corpuscular HGB Conc 31.3 g/dl (31.0-35.0); Mean Corpuscular Hemoglobin 24.4 pg (27.0-33.0); Mean Corpuscular Volume 78.1 fL (80-98); Monocytes Absolute Auto 0.2 X10*3/uL (0.1-1.2); Monocytes Percent Auto 0.7 % (2-11); Neutrophils Absolute Auto 19.8 X10*3/uL (2.0-8.3); Neutrophils Percent Auto 84.4 % (45-73); Platelet Count 137 X10*3/uL (160-400); Red Blood Count 3.52 X10*6/uL (4.20-5.50); Red Cell Distribution Width 24.2 % (11.0-16.0); SCAN SMEAR FLAG 1; White Blood Count 23.4 X10*3/uL (4.8-10.8)
[2020-07-01 22:13] LABS: PLT ABN DIST 1
[2020-07-01 22:19] LABS: Anion Gap 14 (12-20); Blood Urea Nitrogen 16 mg/dL (9-16); Calcium 7.7 mg/dL (8.4-10.2); Carbon Dioxide 29 mmol/L (22-29); Chloride 93 mmol/L (96-108); Creatinine Clr Calc Pharmacy 132.1; Estimated Glomerular Filt Rate > 60; Glucose Fasting 158 mg/dL (60-99); Potassium 3.7 mmol/l (3.3-5.1); Sodium 132 mmol/L (135-145)
[2020-07-02] VITALS (21 sets, daily range): BP systolic 80–152; BP diastolic 45–128; PULSE 85–128; RESP 16–20; TEMP 36.1–37.4; O2SAT 90–98; BMI 39.5
--- NOTE | 2020-07-02 | ECG_ITS ---
Test Reason : CARDIOVERSION Blood Pressure : / mmHG Vent. Rate : 124 BPM Atrial Rate : 124 BPM P-R Int : 124 ms QRS Dur : 084 ms QT Int : 314 ms P-R-T Axes : 046 -02 033 degrees QTc Int : 451 ms Sinus tachycardia with occasional Premature ventricular complexes Low voltage QRS Nonspecific T wave abnormality Abnormal ECG When compared with ECG of 29-JUN-2020 21:30, Premature ventricular complexes are now Present Vent. rate has increased BY 41 BPM Nonspecific T wave abnormality has replaced inverted T waves in Inferior leads T wave inversion no longer evident in Anterior leads Referred By: Citlali Kilgore Electronically Signed By:MARIA VICTORIA MONTOYA MD
[2020-07-02 00:41] LABS: SLIDE REVIEW VERIFIED
[2020-07-02 01:08] LABS: PTT Heparin Drip 82.7 SEC (53-77.9)
--- NOTE | 2020-07-02 07:22 | FL_ITS ---
EXAMINATION: XR FLUOROSCOPY WITH IMAGES CLINICAL INFORMATION: Left hip fracture COMPARISON: Previous x-ray 06/29/2020 TECHNIQUE: Fluoroscopy performed by Dr. Chelsy Arriola. Fluoroscopy time: 2 minutes Cumulative dose: 39 mgy Images: 4 FINDINGS: There is a new intramedullary margie and compression/lag screw transfixing the left femoral intertrochanteric fracture. There is improved alignment. FL/FL guidance in OR IMPRESSION: ORIF of left femoral intertrochanteric fracture.
[2020-07-02 07:24] LABS: Glucose, Whole Blood 138 mg/dL (60-115)
--- NOTE | 2020-07-02 07:30 | PC.NURSE ---
Floor RN called [facility] to make providers aware patient was on heparin drip, had been since 07/01/20 11am for PE they found on chest XRAY, as there was no mention in the pre op note by Tory Hurd. Anesthesia & provider tiger texted to be made aware of situation
[2020-07-02 07:55] LABS: Basophils Percent Auto 0.2 % (0-2); Eosinophils Absolute Auto 0.9 X10*3/uL (0.0-0.4); Imm Gran Pct Auto 1.9 % (0.0-0.4); MANUAL DIFF FLAG NO; Mean Corpuscular Hemoglobin 24.1 pg (27.0-33.0); Mean Corpuscular Volume 77.6 fL (80-98); NRBC Pct Auto 0.1 /100WBC (0.0-0.2); SCAN SMEAR FLAG 1
[2020-07-02 07:57] LABS: Eosinophils Percent Auto 5.3 % (0-4); Hemoglobin 8.4 g/dl (12.0-16.0); Imm Gran Abs Auto 0.34 X10*3/uL (0.00-0.03); Lymphocytes Absolute Auto 1.4 X10*3/uL (1.2-4.9); Mean Corpuscular HGB Conc 31.1 g/dl (31.0-35.0); Mean Platelet Volume 11.7 fL (9.4-12.3); Monocytes Absolute Auto 0.2 X10*3/uL (0.1-1.2); Monocytes Percent Auto 1.1 % (2-11); Neutrophils Absolute Auto 14.7 X10*3/uL (2.0-8.3); Neutrophils Percent Auto 83.5 % (45-73); Platelet Count 126 X10*3/uL (160-400); Red Blood Count 3.48 X10*6/uL (4.20-5.50); Red Cell Distribution Width 24.2 % (11.0-16.0); White Blood Count 17.6 X10*3/uL (4.8-10.8)
[2020-07-02 08:03] LABS: PLT ABN DIST 1
--- NOTE | 2020-07-02 08:04 | MHC.SHP ---
Pre-Procedural Eval Section A The patient is an INPATIENT: Yes Section B Chief Complaint: Left hip pain Allergies: Allergies Allergy/AdvReac Type Severity Reaction Status Date / Time aspirin [ASA] Allergy Unknown Verified 06/29/20 15:54 erythromycin base Allergy Itching Verified 06/29/20 15:54 latex Allergy Itching Verified 06/29/20 15:54 Penicillins Allergy Itching Verified 06/29/20 15:54 Plan I have reviewed the history and physical and performed a pertinent physical examination on my patient. No changes have occurred unless specified.
[2020-07-02 08:05] LABS: PTT Heparin Drip 70.3 SEC (53-77.9)
[2020-07-02 08:13] LABS: Anion Gap 12 (12-20); Blood Urea Nitrogen 15 mg/dL (9-16); Calcium 7.7 mg/dL (8.4-10.2); Carbon Dioxide 30 mmol/L (22-29); Chloride 94 mmol/L (96-108); Creatinine Clr Calc Pharmacy 143.7; Estimated Glomerular Filt Rate > 60; Glucose Fasting 141 mg/dL (60-99); Potassium 3.9 mmol/l (3.3-5.1); Sodium 132 mmol/L (135-145)
--- NOTE | 2020-07-02 08:33 | PC.NURSE ---
Floor RN Kate Melendez texted to be made aware there was order put in to stop heparin for surgery, to be held for 4 hours pre op per instructions given when this RN called into OR
[2020-07-02] MEDS: 0.9 % Sodium Chloride Flush 3 ML SYRINGE IVFLUSH ×4 (09:01→23:07)
[2020-07-02] MEDS: Morphine Sulfate Immed Release 15 MG TABLET PO (09:06)
--- NOTE | 2020-07-02 10:35 | PC.NURSE ---
Per Dr Arriola patient was to be transported to [facility] & prepped for scheduled surgery. This RN reiterated to provider the drip had been stopped at 9am, only off for an hour and a half. Dr Arriola okayed to proceed.
--- NOTE | 2020-07-02 11:11 | P.CONAN_ITS ---
HPI - Anesthesia Eval Consult details Narrative: 55 yo female patient here for I.M. 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 If so, by whom?: No Do you feel safe in your current relationship?: No Current Relationship Is there a partner from a previous relationship who is making you feel unsafe now?: No Are you made to feel afraid or neglected: No Advance Directives: No Advance Directives Information Provided: Yes Do you have thoughts of harming others: None Do you have a plan to hurt others: No Plan Recently lost weight without trying: Yes Meds Allergies Allergy/AdvReac Type Severity Reaction Status Date / Time aspirin [ASA] Allergy Unknown Verified 06/29/20 15:54 erythromycin base Allergy Itching Verified 06/29/20 15:54 latex Allergy Itching Verified 06/29/20 15:54 Penicillins Allergy Itching Verified 06/29/20 15:54 Home Medications Medication Instructions Recorded Confirmed Type acetaminophen 650 mg Q4-5H PRN 06/29/20 06/29/20 History albuterol sulfate [ProAir HFA] INHALATION PRN 06/29/20 History apixaban 5 mg PO BID 06/29/20 06/29/20 History atorvastatin 20 mg PO BEDTIME 06/29/20 06/29/20 History metformin 1,000 mg PO BID 06/29/20 06/29/20 History metoprolol tartrate 50 mg PO BID 06/29/20 06/29/20 History morphine 15 mg PO Q12H 06/29/20 06/30/20 History morphine 15 mg PO Q4H PRN 06/29/20 06/30/20 History morphine 30 mg PO Q12H 06/29/20 06/30/20 History multivitamin 1 tab PO DAILY 06/29/20 06/30/20 History sitagliptin [Januvia] 100 mg PO DAILY 06/29/20 06/29/20 History Exam Exam Date and Time: July 02, 2020 1111 Height,Weight and Vital Signs: Height Vital Signs Temp Pulse Resp BP Pulse Ox 07/02/20 11:17 99.3 F 85 20 101/63 95 07/02/20 08:00 98.1 F 101 H 18 108/55 L 92 07/02/20 04:00 98.5 F 96 18 96/51 L 94 07/01/20 23:43 98.5 F 97 18 111/59 L 92 07/01/20 21:00 98.3 F 87 20 109/62 97 07/01/20 16:21 97 16 100/54 L 99 07/01/20 14:15 98 19 95/57 L 96 07/01/20 12:23 98.9 F 92 16 95/50 L 97 5 ft 1 in Weight 94.9 kg Last Vital Signs Temp 98.1 F 07/02/20 08:00 Pulse 101 H 07/02/20 08:00 Resp 18 07/02/20 08:00 BP 108/55 L 07/02/20 08:00 Pulse Ox 92 07/02/20 08:00 Airway Mallampati Class: III TM Dist: >3cm Neck ROM: Full Loose/Missing/Broken Teeth: Yes (Poor dentition. Broken.) Heart: RRR Lungs: CTAB Assessment and Plan Assessment Anesthesia Assessment: Anesthesia Plan Discussed and Smoking Cess. Discussed Final Anesthetic Review NPO: Yes ASA Class: IV Final Preanesthetic Review: No Changes in Pt Med Stat, Meds/Allgs Chart Reviewed, Consent Obtained/Reviewed and Anes Risks/Benef Reviewed Patient Risk: High Procedure Risk: Intermediate Anesthetic Plan Anesthetic Plan: GA Disposition: Extended PACU
[2020-07-02 11:31] LABS: Glucose, Whole Blood 144 mg/dL (60-115)
[2020-07-02] MEDS: ceFAZolin Sodium/Dextrose,Iso 2 GM/50 ML PIGGYBACK IV ×2 (11:45→16:26)
--- NOTE | 2020-07-02 12:43 | PC.NURSE ---
Addendum entered by Ange Smith RN 07/02/20 12:47: Floor Rn Nlel informed this RN of heparin drip Original Note: RN texted and informed this RN heparin drip was stopped at 9am. Dr Benavides, Dr Arriola, Dr Singh Melendez texted to inform them the drip was stopped at 9am.
[2020-07-02] MEDS: Lactated Ringers 1,000 ML 100 ML IVCONT ×2 (12:52→23:06)
--- NOTE | 2020-07-02 13:51 | P.PCNOP_ITS ---
Brief Operative Note Date of procedure: 07/02/20 Pre-op diagnosis: Intertrochanteric fracture left hip Post-op diagnosis: same Procedure: CLOSED REDUCTION AND LONG GAMMA NAILING LEFT HIP Anesthesia: HELENA Surgeon: [facility] Lia[facility] Parole Board Member: Leona Padilla Estimated blood loss (mL): 150 Condition: stable Disposition: PACU
[2020-07-02] MEDS: fentaNYL citrate/PF 100 MCG/2 ML VIAL 25 MCG IVPUSH ×4 (14:11→14:50)
[2020-07-02 16:11] LABS: Glucose, Whole Blood 190 mg/dL (60-115)
[2020-07-02] MEDS: Morphine Sulfate 4 MG/ML CARTRIDGE 3 MG IVPUSH ×2 (16:24→20:06)
[2020-07-02] MEDS: Insulin Lispro 100 UNIT/ML 3 ML VIAL SUBCUT ×2 (16:25→20:07)
--- NOTE | 2020-07-02 16:38 | MHC.CM.PN ---
CM met with patient at the bedside who reports she amb with a cane/walker and lives with a room mate. Patient does not have a HCP and declines filling one out at this time. Patient does have services with [facility] and [facility]. Discussed discharge plan, home with resumption of [facility] and [facility] services. Referral made via allscripts. Patients room mate will provide transportation at discharge. CM will continue to follow for discharge needs.
--- NOTE | 2020-07-02 17:00 | HO.PM.IMPN ---
Subjective Subjective Date of Service: 07/02/20 Interval History: the patient was seen and evaluated this morning Laying in bed, feels comfortable but complaining of hip pain Denies any fever, chills or shortness of breath No reported other overnight events. Systemic review: No fever, chills or weakness No chest pain, palpitation No shortness of breath or coughing No abdominal pain, nausea or vomiting No urinary symptoms No any rash or wounds Physical Exam Vital Signs: Vital Signs: Last Vital Signs Temp 98.2 F 07/02/20 15:55 Pulse 118 H 07/02/20 15:55 Resp 18 07/02/20 16:24 BP 100/60 07/02/20 15:55 Pulse Ox 93 07/02/20 15:55 Body Mass Index 39.5 Constitutional : Alert, oriented, not in distress Neck : Normal inspection, Supple Cardiovascular : RRR, S1 S2, no lower extremity edema Respiratory : Good bilateral air entry, no crackles, wheezes or rhonchi Gastrointestinal: soft, lax, Normal bowel sounds, Non tender Skin : Warm/Dry, No rash Neurological : Alert & oriented x3, No focal deficit Muscular, left lower extremity externally rotated and short Objective Data Current Medications Generic Name Dose Route Start Last Admin Trade Name Freq PRN Reason Stop Dose Admin Acetaminophen 650 mg 06/30/20 01:22 07/01/20 16:30 Acetaminophen 325 Mg Tablet PO 650 mg Q6H PRN Administration Pain, Mild (Pain Scale 1-3) Atorvastatin Calcium 20 mg 06/30/20 21:00 07/01/20 21:23 Atorvastatin Calcium 20 Mg Tablet PO 20 mg BEDTIME CARINA Administration Lactated Ringer's 1,000 mls @ 100 mls/hr 07/02/20 12:00 07/02/20 12:52 Lr IVCONT 100 mls/hr .Q10H CARINA Administration Insulin Human Lispro 0 unit 06/30/20 11:30 07/02/20 16:25 Insulin Lispro 100 Unit/Ml 3 Ml Vial SUBCUT 2 unit QIDACHS CARINA Administration Protocol Morphine Sulfate 15 mg 06/30/20 01:22 07/02/20 09:06 Morphine Sulfate Immed Release 15 Mg Tablet PO 15 mg Q4H PRN Administration Pain Morphine Sulfate 3 mg 07/02/20 15:57 07/02/20 16:24 Morphine Sulfate 4 Mg/Ml Cartridge IVPUSH 3 mg Q2H PRN Administration Pain, Severe (Pain Scale 7-10) Naloxone HCl 0.2 mg 07/02/20 15:57 Naloxone Hcl 0.4 Mg/Ml Vial IVPUSH Q2M PRN Excessive sedation or RR < 8 Ondansetron HCl 4 mg 07/02/20 12:00 Ondansetron Hcl 4 Mg/2 Ml Vial IVPUSH ONCE PRN Nausea and Vomiting Sodium Chloride 3 ml 06/30/20 08:00 07/02/20 16:25 0.9 % Sodium Chloride Flush 3 Ml Syringe IVFLUSH 3 ml QSHIFT CARINA Administration Sodium Chloride 3 ml 07/02/20 16:00 07/02/20 16:37 0.9 % Sodium Chloride Flush 3 Ml Syringe IVFLUSH Not Given QSHIFT CARINA Labs CBC & Chem 7: 07/02/20 07:29 07/02/20 07:29 Microbiology Microbiology Results: Microbiology 06/29/20 20:24 Blood - Venous Blood Culture - Preliminary No growth after 48 hours. 06/29/20 19:46 Blood - Venous Blood Culture - Preliminary No growth after 48 hours. Assessment and Plan (1) Medication induced coagulopathy: Status: Deleted (2) Leukocytosis: Status: Acute (3) Closed fracture of left hip: Status: Acute (4) Hypotension: Status: Acute (5) Chronic respiratory failure with hypoxia: Status: Acute (6) Pancreatic carcinoma metastatic to liver: Status: Acute Assessment and Plan: A 55 years old lady with PMH of endometrial cancer post hysterectomy, metastatic pancreatic cancer on chemo, diabetes, DVT on Eliquis who presents to the hospital for increase left hip pain. Left hip close fractures Likely secondary to pathological fractures Orthopedic team input appreciated, surgery this afternoon went well Monitor H&H to do PT Hypotension Seems to be chronic looking add visits to [facility] Hold metoprolol l for now Monitor blood pressure Continue gentle hydration Medication induced coagulopathy INR 3.2 secondary to Eliquis usage Hold Eliquis for now Monitor PT INR Leukocytosis Seems to be chronic looking back at his [facility] visits recently No clear source of infection at this point Continue to monitor any signs of infection DVT/Pulmonary embolism PE Noted on CTA done in ED Patient has been treated for LLE DVT with Eliquis eliquis held for surgery, started on heparin drip To restart Eliquis tomorrow DVT PPX Heparin, to start Eliquis tomorrow
[2020-07-02 18:01] LABS: Hematocrit 28.4 % (37-47); Mean Corpuscular HGB Conc 31.7 g/dl (31.0-35.0); Mean Corpuscular Hemoglobin 25.8 pg (27.0-33.0); Mean Corpuscular Volume 81.4 fL (80-98); Red Blood Count 3.49 X10*6/uL (4.20-5.50); Red Cell Distribution Width 25.6 % (11.0-16.0); White Blood Count 14.1 X10*3/uL (4.8-10.8)
--- NOTE | 2020-07-02 18:11 | PC.NURSE ---
Patient heart rate sustaining in the 120s. Dr. Macdonald made aware. No new orders at this time.
[2020-07-02 18:26] LABS: NRBC Pct Auto 1.1 /100WBC (0.0-0.2); PLT ABN DIST 1; Platelet Count 63 X10*3/uL (160-400)
[2020-07-02] MEDS: Metoprolol Tartrate 50 MG TABLET PO (18:33)
--- NOTE | 2020-07-02 19:30 | ECG_ITS ---
Test Reason : CP Blood Pressure : / mmHG Vent. Rate : 109 BPM Atrial Rate : 109 BPM P-R Int : 132 ms QRS Dur : 090 ms QT Int : 336 ms P-R-T Axes : 030 -03 -09 degrees QTc Int : 452 ms Sinus tachycardia Low voltage QRS Nonspecific T wave abnormality Abnormal ECG Compared to EKG of 07/02/2020 at 14:01:16 Premature ventricular complexes are not present Referred By: Chelsy Macdonald Electronically Signed By:MARIA VICTORIA MONTOYA MD
[2020-07-02 19:59] LABS: Glucose, Whole Blood 217 mg/dL (60-115)
[2020-07-02] MEDS: Atorvastatin Calcium 20 MG TABLET PO (20:05)
--- NOTE | 2020-07-02 22:45 | PC.NURSE ---
Patients heart rate was noted to be 30 on the heart rate monitor. Upon assessment patient resting comfortably, in NAD, heart rate noted to have increased to 40's. Dr. Hogan informed of patients heart rate. No further orders placed at this time.
[2020-07-03] VITALS (7 sets, daily range): BP systolic 92–112; BP diastolic 49–60; PULSE 81–94; RESP 14–18; TEMP 36.3–36.7; O2SAT 93–98
[2020-07-03] MEDS: Morphine Sulfate 4 MG/ML CARTRIDGE 3 MG IVPUSH ×5 (00:06→22:23)
[2020-07-03 06:50] LABS: Hemoglobin 8.7 g/dl (12.0-16.0)
[2020-07-03 06:52] LABS: Hematocrit 26.7 % (37-47); Mean Corpuscular HGB Conc 32.6 g/dl (31.0-35.0); Mean Corpuscular Volume 79.9 fL (80-98); Red Blood Count 3.34 X10*6/uL (4.20-5.50); Red Cell Distribution Width 25.6 % (11.0-16.0); White Blood Count 13.6 X10*3/uL (4.8-10.8)
[2020-07-03 06:54] LABS: INTERNATIONAL NORM RATIO 2.8 (0.9-1.1); Prothrombin Time 34.2 SEC (10.8-13.0)
[2020-07-03 07:21] LABS: Anion Gap 14 (12-20); Blood Urea Nitrogen 18 mg/dL (9-16); Calcium 7.5 mg/dL (8.4-10.2); Carbon Dioxide 28 mmol/L (22-29); Chloride 93 mmol/L (96-108); Creatinine Clr Calc Pharmacy 129.5; Estimated Glomerular Filt Rate > 60; Glucose Random 143 mg/dL (60-115); Potassium 3.8 mmol/l (3.3-5.1); Sodium 131 mmol/L (135-145)
[2020-07-03 07:22] LABS: PLT ABN DIST 1; Platelet Count 39 X10*3/uL (160-400)
[2020-07-03 07:33] LABS: Glucose, Whole Blood 141 mg/dL (60-115)
[2020-07-03] MEDS: Metoprolol Tartrate 50 MG TABLET PO ×2 (07:54→20:43)
[2020-07-03] MEDS: Apixaban 5 MG TABLET PO (09:07)
--- NOTE | 2020-07-03 09:16 | PM.PNORT ---
Subjective Subjective Date of Service: 07/03/20 Interval history: POD1 LT femoral nail. Pt. resting comfortably in bed. No overnight events. Pain is well managed. Physical Exam Vital Signs: Vital Signs: Last Vital Signs Temp 98.0 F 07/03/20 08:00 Pulse 93 07/03/20 08:00 Resp 16 07/03/20 08:00 BP 105/58 L 07/03/20 08:00 Pulse Ox 94 07/03/20 08:00 Body Mass Index 39.5 Const: General: cooperative, healthy appearing and no acute distress Resp: Effort & Inspection: normal respiratory effort and able to speak in complete sentences Cardio: Rate: regular rate Peripheral pulses: Peripheral pulses 2+ throughout GI: Palpation (GI): Soft to palpation Skin: Lesions: no lesions Rashes: no rashes Extrem: Other: lt hip no ecchymosis, redness, or drainage. Dressing is clean dry and intact. NVI Progress Note: A&P Assessment and plan (1) Closed fracture of left hip: Status: Acute Assessment and Plan: Continue pain mgmnt Begin Eliquis for dvt ppx begin PT for LT femoral nailing Dispo planning-Pending PT eval, pain mgmnt Fall Risk Details Current Medications: Current Medications Generic Name Dose Route Start Last Admin Trade Name Freq PRN Reason Stop Dose Admin Acetaminophen 650 mg 06/30/20 01:22 07/01/20 16:30 Acetaminophen 325 Mg Tablet PO 650 mg Q6H PRN Administration Pain, Mild (Pain Scale 1-3) Apixaban 5 mg 07/03/20 09:00 07/03/20 09:07 Apixaban 5 Mg Tablet PO 5 mg BID CARINA Administration Atorvastatin Calcium 20 mg 06/30/20 21:00 07/02/20 20:05 Atorvastatin Calcium 20 Mg Tablet PO 20 mg BEDTIME CARINA Administration Lactated Ringer's 1,000 mls @ 100 mls/hr 07/02/20 12:00 07/03/20 09:09 Lr IVCONT Infused .Q10H CARINA Infusion Insulin Human Lispro 0 unit 06/30/20 11:30 07/03/20 07:53 Insulin Lispro 100 Unit/Ml 3 Ml Vial SUBCUT Not Given QIDACHS CARINA Protocol Metoprolol Tartrate 50 mg 07/02/20 18:15 07/03/20 07:54 Metoprolol Tartrate 50 Mg Tablet PO 50 mg BID CARINA Administration Protocol Morphine Sulfate 15 mg 06/30/20 01:22 07/02/20 09:06 Morphine Sulfate Immed Release 15 Mg Tablet PO 15 mg Q4H PRN Administration Pain Morphine Sulfate 3 mg 07/02/20 15:57 07/03/20 07:54 Morphine Sulfate 4 Mg/Ml Cartridge IVPUSH 3 mg Q2H PRN Administration Pain, Severe (Pain Scale 7-10) Naloxone HCl 0.2 mg 07/02/20 15:57 Naloxone Hcl 0.4 Mg/Ml Vial IVPUSH Q2M PRN Excessive sedation or RR < 8 Ondansetron HCl 4 mg 07/02/20 12:00 Ondansetron Hcl 4 Mg/2 Ml Vial IVPUSH ONCE PRN Nausea and Vomiting Sodium Chloride 3 ml 06/30/20 08:00 07/03/20 07:53 0.9 % Sodium Chloride Flush 3 Ml Syringe IVFLUSH Not Given QSHIFT CARINA Sodium Chloride 3 ml 07/02/20 16:00 07/03/20 07:54 0.9 % Sodium Chloride Flush 3 Ml Syringe IVFLUSH Not Given QSHIFT CARINA Time Spent With Patient Time: Total time spent is greater than 50% in coordination of care (as documented) at patient's floor/unit and/or counseling patient: Time with patient: less than 15 minutes
[2020-07-03 11:23] LABS: Glucose, Whole Blood 189 mg/dL (60-115)
[2020-07-03] MEDS: Insulin Lispro 100 UNIT/ML 3 ML VIAL SUBCUT (12:20)
--- NOTE | 2020-07-03 13:48 | OP_ITS ---
SURGEON: Chelsy Arriola MD PREOPERATIVE DIAGNOSIS: Intertrochanteric fracture, left hip. POSTOPERATIVE DIAGNOSIS: Intertrochanteric fracture, left hip. PROCEDURE PERFORMED: Closed reduction and long gamma nailing, left hip/femur. ESTIMATED BLOOD LOSS: COMPLICATIONS: ANESTHESIA: ASSISTANTS: SPECIMENS: CLINICAL NOTE: This is a very pleasant lady, comes in today in regard to her left hip. She injured it earlier. In fact, it may have been a pathological fracture. She has a history of pancreatic cancer with metastatic disease. She had been on Eliquis. After the requisite amount of time, after explaining the risks, benefits, and alternatives and being medically cleared and answering all her questions, it was mutually agreed upon to carry out the following the procedure. To note, she was on IV heparin, which was discontinued 3 hours before the surgery. DESCRIPTION OF PROCEDURE: Under a general anesthetic, the patient was placed supine on the fracture table. The right hip was flexed, abducted, externally rotated out of the way. The left hip was placed in standard traction. Closed reduction was then performed and it was adequate, and therefore the left hip and leg was prepped and draped in standard barrier technique. Surgical time-out was then performed. The patient was identified, procedure confirmed, site confirmed. Medical analogy and history reviewed. Preoperative antibiotics were given. Standard DVT prophylaxis was in place. All other items were discussed and agreed upon. Standard incision to the proximal end of the femur was carried out, was taken down through copious amounts of subcutaneous tissue with hemostasis achieved along the way using electrocautery. It was brought us to the fascia tressa, which was divided along the length of the incision. It was bluntly dissected to the tip of the trochanter. Using fluoroscopic guidance and a curved awl, the proximal end of the femur was entered. The guidewire was then inserted through the awl into the proximal segment and was successfully passed into the distal segment. It was taken down to the level of the knee. The wire was then measured and 11 x 360 x 125 degree nail was selected and brought up on the table. The proximal end was step reamed in standard fashion. The flexible reamer passed to 12.5 easily. The nail was brought up on the table, it was passed over the guidewire across the fracture site into the distal segment. The guidewire was then removed. The nail was then fully seated and then we turned our attention to the lag screw. Through a stab incision, the guides were placed lateral to the femur. The guidewire was inserted inferior to the midline on the AP and just inferior to the midline on the lateral. It was measured the appropriate length. The lag screw was selected. The drill reamer was used in standard fashion under fluoroscopic guidance. The screw was then inserted with excellent purchase into the subchondral bone. It was then compressed using the compressor in standard fashion. The set screw was then inserted securely in standard fashion. At this point, with the guide removed, final images were taken AP and lateral fluoroscopy demonstrated the fracture reduced very well. The hardware all in appropriate position. Therefore, we proceeded to closure. The wound was thoroughly irrigated. The deep tissue was approximated using interrupted 2-0 Dexon including the fascia tressa. The subcutaneous tissue was approximated using interrupted 2-0 Dexon. All incisions were closed with chau. Sterile dressings were then applied. The patient was then transferred to her own bed, where the anesthesia was reversed and transferred to the recovery room in good condition. Intraoperatively, there was approximately 150 mL blood loss. No complications. BANKING PARALEGAL: AILEEN Schaefer. MD GAIL Burton/NEHEMIAS / [id number]
--- NOTE | 2020-07-03 14:52 | HO.POSTANES ---
Post Anesthesia Evaluation Post Anesthesia Evaluation Vital Signs: Vital Signs Temp Pulse Resp BP Pulse Ox 07/03/20 11:50 97.8 F 81 17 110/49 L 96 07/03/20 10:32 93 105/58 L 94 07/03/20 08:00 98.0 F 93 16 105/58 L 94 07/03/20 03:47 98.1 F 91 14 92/55 L 93 Anesthesia: General Mental Status: Awake Pain Control: Satisfactory Nausea/Vomiting: None Hydration: Adequate Anesthesia-Related Issues: No Anes. Related Issues
[2020-07-03] MEDS: 0.9 % Sodium Chloride Flush 3 ML SYRINGE IVFLUSH (15:28)
--- NOTE | 2020-07-03 16:29 | P.PNIM_ITS ---
Subjective Subjective Date of Service: 07/03/20 Interval History: the patient was seen and evaluated this morning Laying in bed, feels comfortable but complaining of hip pain Denies any fever, chills or shortness of breath Drop in Platelets, oozing blood from surgical site and mild hematuria No reported other overnight events. Systemic review: No fever, chills or weakness No chest pain, palpitation No shortness of breath or coughing No abdominal pain, nausea or vomiting No urinary symptoms No any rash or wounds Physical Exam Vital Signs: Vital Signs: Last Vital Signs Temp 97.6 F 07/03/20 15:34 Pulse 94 07/03/20 15:34 Resp 18 07/03/20 15:34 BP 111/56 L 07/03/20 15:34 Pulse Ox 95 07/03/20 15:34 Body Mass Index 39.5 Constitutional : Alert, oriented, not in distress Neck : Normal inspection, Supple Cardiovascular : RRR, S1 S2, no lower extremity edema Respiratory : Good bilateral air entry, no crackles, wheezes or rhonchi Gastrointestinal: soft, lax, Normal bowel sounds, Non tender Skin : Warm/Dry, No rash Neurological : Alert & oriented x3, No focal deficit Muscular, left lower extremity externally rotated and short Objective Data Current Medications Generic Name Dose Route Start Last Admin Trade Name Freq PRN Reason Stop Dose Admin Acetaminophen 650 mg 06/30/20 01:22 07/01/20 16:30 Acetaminophen 325 Mg Tablet PO 650 mg Q6H PRN Administration Pain, Mild (Pain Scale 1-3) Apixaban 5 mg 07/03/20 09:00 07/03/20 09:07 Apixaban 5 Mg Tablet PO 5 mg BID CARINA Administration Atorvastatin Calcium 20 mg 06/30/20 21:00 07/02/20 20:05 Atorvastatin Calcium 20 Mg Tablet PO 20 mg BEDTIME CARINA Administration Lactated Ringer's 1,000 mls @ 100 mls/hr 07/02/20 12:00 07/03/20 09:09 Lr IVCONT 07/03/20 18:36 Infused .Q10H CARINA Infusion Insulin Human Lispro 0 unit 06/30/20 11:30 07/03/20 12:20 Insulin Lispro 100 Unit/Ml 3 Ml Vial SUBCUT 2 unit QIDACHS CARINA Administration Protocol Metoprolol Tartrate 50 mg 07/02/20 18:15 07/03/20 07:54 Metoprolol Tartrate 50 Mg Tablet PO 50 mg BID CARINA Administration Protocol Morphine Sulfate 15 mg 06/30/20 01:22 07/02/20 09:06 Morphine Sulfate Immed Release 15 Mg Tablet PO 15 mg Q4H PRN Administration Pain Morphine Sulfate 3 mg 07/02/20 15:57 07/03/20 15:28 Morphine Sulfate 4 Mg/Ml Cartridge IVPUSH 3 mg Q2H PRN Administration Pain, Severe (Pain Scale 7-10) Naloxone HCl 0.2 mg 07/02/20 15:57 Naloxone Hcl 0.4 Mg/Ml Vial IVPUSH Q2M PRN Excessive sedation or RR < 8 Ondansetron HCl 4 mg 07/02/20 12:00 Ondansetron Hcl 4 Mg/2 Ml Vial IVPUSH ONCE PRN Nausea and Vomiting Sodium Chloride 3 ml 06/30/20 08:00 07/03/20 15:28 0.9 % Sodium Chloride Flush 3 Ml Syringe IVFLUSH 3 ml QSHIFT [facility] Administration Sodium Chloride 3 ml 07/02/20 16:00 07/03/20 15:29 0.9 % Sodium Chloride Flush 3 Ml Syringe IVFLUSH Not Given QSHIFT [facility] Labs CBC & Chem 7: 07/03/20 05:27 07/03/20 05:27 Microbiology Microbiology Results: Microbiology 06/29/20 20:24 Blood - Venous Blood Culture - Preliminary No growth after 48 hours. 06/29/20 19:46 Blood - Venous Blood Culture - Preliminary No growth after 48 hours. Assessment and Plan (1) Medication induced coagulopathy: Status: Deleted (2) Leukocytosis: Status: Acute (3) Closed fracture of left hip: Status: Acute (4) Hypotension: Status: Acute (5) Chronic respiratory failure with hypoxia: Status: Acute (6) Pancreatic carcinoma metastatic to liver: Status: Acute Assessment and Plan: A 55 years old lady with PMH of endometrial cancer post hysterectomy, metastatic pancreatic cancer on chemo, diabetes, DVT on Eliquis who presents to the hospital for increase left hip pain. Left hip close fractures Likely secondary to pathological fractures Orthopedic team input appreciated, surgery this afternoon went well Monitor H&H PT eval Thrombocytopenia Oozing blood from the wound Platelets of 38 on Eliquis, to hold To transfuse platelets Monitor H&H Hypotension Seems to be chronic looking add visits to [facility] Hold metoprolol l for now Monitor blood pressure Continue gentle hydration Medication induced coagulopathy INR 2.8 secondary to Eliquis usage Hold Eliquis for now Monitor PT INR Leukocytosis Seems to be chronic looking back at his [facility] visits recently No clear source of infection at this point Continue to monitor any signs of infection DVT/Pulmonary embolism PE Noted on CTA done in ED Patient has been treated for LLE DVT with Eliquis eliquis held for surgery, started on heparin drip To restart Eliquis tomorrow DVT PPX Hold Eliquis for
--- NOTE | 2020-07-03 16:36 | ECG_ITS ---
Test Reason : CP Blood Pressure : / mmHG Vent. Rate : 089 BPM Atrial Rate : 089 BPM P-R Int : 136 ms QRS Dur : 088 ms QT Int : 370 ms P-R-T Axes : 032 -18 004 degrees QTc Int : 450 ms Normal sinus rhythm Low voltage QRS Nonspecific T wave abnormality Abnormal ECG Compared to EKG of 07/02/2020 at 19:30:00 No significant changes seen Referred By: Chelsy Macdonald Electronically Signed By:MARIA VICTORIA MONTOYA MD
[2020-07-03 16:52] LABS: Glucose, Whole Blood 186 mg/dL (60-115)
[2020-07-03 17:37] LABS: Hematocrit 26.4 % (37-47); Hemoglobin 8.6 g/dl (12.0-16.0); Mean Corpuscular HGB Conc 32.6 g/dl (31.0-35.0); Mean Corpuscular Hemoglobin 26.1 pg (27.0-33.0); Mean Corpuscular Volume 80.2 fL (80-98); Red Blood Count 3.29 X10*6/uL (4.20-5.50); Red Cell Distribution Width 25.5 % (11.0-16.0)
[2020-07-03 17:38] LABS: White Blood Count 16.5 X10*3/uL (4.8-10.8)
[2020-07-03] MEDS: Lactated Ringers 1,000 ML 100 ML IVCONT (17:48)
[2020-07-03 18:10] LABS: Platelet Count 28 X10*3/uL (160-400)
[2020-07-03 18:13] LABS: NRBC Pct Auto 2.4 /100WBC (0.0-0.2); PLT ABN DIST 1
--- NOTE | 2020-07-03 18:38 | PC.NURSE ---
Prt assessed at 15:15 today. Surgical dressing to lt hip saturated with blood, large bloody stain present on the bed sheets, goodrich cath is draining fruit punch color urine, bruises present to left AC area also around the implanted port to the right chest. Platelets count 39 in am, pt received Eliquius in am., INR 2.[address] Macdonald was notified, Eliquis held, CBC ordered, type and screen ordered unit of platelets ordered,. DSg to lt hip changed .
[2020-07-03 20:42] LABS: Glucose, Whole Blood 159 mg/dL (60-115)
[2020-07-03] MEDS: Atorvastatin Calcium 20 MG TABLET PO (20:44)
[2020-07-04] VITALS (13 sets, daily range): BP systolic 92–108; BP diastolic 51–71; PULSE 80–114; RESP 16–18; TEMP 36.1–36.8; O2SAT 95–96
[2020-07-04] MEDS: 0.9 % Sodium Chloride Flush 3 ML SYRINGE IVFLUSH ×5 (00:35→16:57)
[2020-07-04] MEDS: Morphine Sulfate 4 MG/ML CARTRIDGE 3 MG IVPUSH ×4 (00:45→21:41)
[2020-07-04 06:55] LABS: PLT CLUMP 1
[2020-07-04 06:57] LABS: Hematocrit 24.1 % (37-47); Hemoglobin 7.8 g/dl (12.0-16.0); Mean Corpuscular HGB Conc 32.4 g/dl (31.0-35.0); Mean Corpuscular Volume 80.3 fL (80-98); Mean Platelet Volume 8.9 fL (9.4-12.3); Red Cell Distribution Width 25.5 % (11.0-16.0); White Blood Count 16.9 X10*3/uL (4.8-10.8)
[2020-07-04 07:02] LABS: INTERNATIONAL NORM RATIO 3.3 (0.9-1.1); Prothrombin Time 39.8 SEC (10.8-13.0)
[2020-07-04 07:22] LABS: Anion Gap 15 (12-20); Blood Urea Nitrogen 14 mg/dL (9-16); Calcium 7.6 mg/dL (8.4-10.2); Carbon Dioxide 27 mmol/L (22-29); Chloride 93 mmol/L (96-108); Creatinine Clr Calc Pharmacy 134.8; Estimated Glomerular Filt Rate > 60; Glucose Random 144 mg/dL (60-115); Potassium 4.2 mmol/l (3.3-5.1); Sodium 131 mmol/L (135-145)
[2020-07-04 07:23] LABS: NRBC Pct Auto 3.1 /100WBC (0.0-0.2); Platelet Count 72 X10*3/uL (160-400)
[2020-07-04 07:46] LABS: Glucose, Whole Blood 153 mg/dL (60-115)
[2020-07-04 09:03] LABS: Fibrinogen 445 MG/DL (259-690)
[2020-07-04 09:07] LABS: Iron 34 mcg/dL (30-160); Percent Iron Saturation 23 % (15-50); Total Iron Binding Capacity 148 mcg/dL (228-428); Unsaturated Iron Binding 114 ug/dL
[2020-07-04 09:48] LABS: Alanine Aminotransferase 31 U/L (0-31); Albumin Level 1.9 g/dL (3.5-5.0); Alkaline Phosphatase 489 U/L (39-117); Aspartate Amino Transferase 75 U/L (5-31); Bilirubin Direct 1.2 mg/dL (0.0-0.5); Bilirubin Total 1.7 mg/dL (0.0-1.0); Lactate Dehydrogenase 601 U/L (122-220); Total Protein 4.2 g/dL (6.5-8.0)
[2020-07-04 10:05] LABS: Ferritin 8064 ng/mL (10-250)
--- NOTE | 2020-07-04 10:52 | P.PNOP_ITS ---
Subjective Subjective Date of Service: 07/04/20 Interval history: POD2 s/p lt femoral nailing. Pt. resting comfortably in bed. No overnight events. Pain well managed. Pt. denies SOB, Chest pain, abd pain. Physical Exam Vital Signs: Vital Signs: Last Vital Signs Temp 97.9 F 07/04/20 07:59 Pulse 95 07/04/20 07:59 Resp 18 07/04/20 07:59 BP 102/58 L 07/04/20 07:59 Pulse Ox 96 07/04/20 07:59 Body Mass Index 39.5 Const: General: cooperative, healthy appearing and no acute distress Resp: Effort & Inspection: normal respiratory effort and able to speak in complete sentences Cardio: Rate: regular rate Peripheral pulses: Peripheral pulses 2+ throughout GI: Palpation (GI): Soft to palpation Skin: Lesions: no lesions Rashes: no rashes Extrem: Other: lt hip no ecchymosis, redness, or drainage. Incision is clean, dry and intact, chau intact. New dressing applied. NVI. Progress Note: A&P Assessment and plan (1) Closed fracture of left hip: Status: Acute Assessment and Plan: Medicine to continue pain mgmnt Medicine to follow H+H and advise when to restart Eliquis for dvt ppx Continue P.T. for lt hip femoral nailing Dispo planning-Pending PT eval, pain mgmnt Fall Risk Details Current Medications: Current Medications Generic Name Dose Route Start Last Admin Trade Name Freq PRN Reason Stop Dose Admin Acetaminophen 650 mg 06/30/20 01:22 07/01/20 16:30 Acetaminophen 325 Mg Tablet PO 650 mg Q6H PRN Administration Pain, Mild (Pain Scale 1-3) Apixaban 5 mg 07/03/20 09:00 07/03/20 20:45 Apixaban 5 Mg Tablet PO Not Given BID CARINA Atorvastatin Calcium 20 mg 06/30/20 21:00 07/03/20 20:44 Atorvastatin Calcium 20 Mg Tablet PO 20 mg BEDTIME [facility] Administration Insulin Human Lispro 0 unit 06/30/20 11:30 07/04/20 08:02 Insulin Lispro 100 Unit/Ml 3 Ml Vial SUBCUT Not Given QIDACHS [facility] Protocol Metoprolol Tartrate 50 mg 07/02/20 18:15 07/03/20 20:43 Metoprolol Tartrate 50 Mg Tablet PO 50 mg BID CARINA Administration Protocol Morphine Sulfate 15 mg 06/30/20 01:22 07/02/20 09:06 Morphine Sulfate Immed Release 15 Mg Tablet PO 15 mg Q4H PRN Administration Pain Morphine Sulfate 3 mg 07/02/20 15:57 07/04/20 08:01 Morphine Sulfate 4 Mg/Ml Cartridge IVPUSH 3 mg Q2H PRN Administration Pain, Severe (Pain Scale 7-10) Naloxone HCl 0.2 mg 07/02/20 15:57 Naloxone Hcl 0.4 Mg/Ml Vial IVPUSH Q2M PRN Excessive sedation or RR < 8 Ondansetron HCl 4 mg 07/02/20 12:00 Ondansetron Hcl 4 Mg/2 Ml Vial IVPUSH ONCE PRN Nausea and Vomiting Sodium Chloride 3 ml 06/30/20 08:00 07/04/20 08:01 0.9 % Sodium Chloride Flush 3 Ml Syringe IVFLUSH 3 ml QSHIFT [facility]INA Administration Sodium Chloride 3 ml 07/02/20 16:00 07/04/20 08:01 0.9 % Sodium Chloride Flush 3 Ml Syringe IVFLUSH Not Given QSHIFT [facility]INA Time Spent With Patient Time: Total time spent is greater than 50% in coordination of care (as documented) at patient's floor/unit and/or counseling patient: Time with patient: less than 15 minutes
--- NOTE | 2020-07-04 11:02 | P.CNHO_ITS ---
Subjective - Subjective Chief complaint: None reported Consult date: 07/04/20 Requesting Physician: Dr. Macdonald Primary Care Provider: Mahsa James NP HPI - Consult Narrative Reason for consult: Anemia/thrombocytopenia, pulmonary embolism Narrative: Edyta Anderson is a 55 year old female with history of metastatic pancreatic cancer admitted for left hip fracture. She has undergone surgery, left femoral nailing on 07/02/2020. Her admission Hemoglobin was 9.3 gram/dL and this gradually declined to 7.8 gram/dL. Her platelet count was 146 K on admission and this declined to 28 K on 07/03/2020. She received platelet transfusion on 07/03/20. She underwent CT angiogram on 06/29/2020 for chest pain, this revealed a small peripheral pulmonary embolus in the left lower lobe and bilateral upper lobes. Extensive bilateral airspace opacities and small left pleural effusion. Liver is enlarged, free fluid in the abdomen around the spleen. She has a history of left lower extremity DVT diagnosed after her hysterectomy last year. She has been on Eliquis. Patient denies any complaints at this time such as abdominal pain, nausea, chest pain, cough or shortness of breath. She denies any gum bleed or nose bleed. She is healing from her hip surgery. She states that she did receive chemotherapy about 10 days ago but she does not know the names of the medications. She is rather vague about her cancers history and states that she has cancer everywhere. Review of Systems - Cardiovascular Reports no additional cardiovascular complaints - Respiratory Reports no additional respiratory complaints - Gastrointestinal Reports no additional gastrointestinal complaints [facility] Medical History: Medical History (Last Reviewed 07/03/20 @ 10:34 by Natalie Gates PT) Chest pain Chronic respiratory failure with hypoxia Diabetes mellitus High cholesterol Hypotension Left leg DVT Leukocytosis Pancreatic carcinoma metastatic to liver Pulmonary embolism Smoking status: Never smoker Home Medications and Allergies Current Medications: Current Medications Generic Name Dose Route Start Last Admin Trade Name Freq PRN Reason Stop Dose Admin Acetaminophen 650 mg 06/30/20 01:22 07/01/20 16:30 Acetaminophen 325 Mg Tablet PO 650 mg Q6H PRN Administration Pain, Mild (Pain Scale 1-3) Apixaban 5 mg 07/03/20 09:00 07/03/20 20:45 Apixaban 5 Mg Tablet PO Not Given BID CARINA Atorvastatin Calcium 20 mg 06/30/20 21:00 07/03/20 20:44 Atorvastatin Calcium 20 Mg Tablet PO 20 mg BEDTIME [facility] Administration Insulin Human Lispro 0 unit 06/30/20 11:30 07/04/20 08:02 Insulin Lispro 100 Unit/Ml 3 Ml Vial SUBCUT Not [facility] Protocol Metoprolol Tartrate 50 mg 07/02/20 18:15 07/03/20 20:43 Metoprolol Tartrate 50 Mg Tablet PO 50 mg BID [facility] Administration Protocol Morphine Sulfate 15 mg 06/30/20 01:22 07/02/20 09:06 Morphine Sulfate Immed Release 15 Mg Tablet PO 15 mg Q4H PRN Administration Pain Morphine Sulfate 3 mg 07/02/20 15:57 07/04/20 08:01 Morphine Sulfate 4 Mg/Ml Cartridge IVPUSH 3 mg Q2H PRN Administration Pain, Severe (Pain Scale 7-10) Naloxone HCl 0.2 mg 07/02/20 15:57 Naloxone Hcl 0.4 Mg/Ml Vial IVPUSH Q2M PRN Excessive sedation or RR < 8 Ondansetron HCl 4 mg 07/02/20 12:00 Ondansetron Hcl 4 Mg/2 Ml Vial IVPUSH ONCE PRN Nausea and Vomiting Sodium Chloride 3 ml 06/30/20 08:00 07/04/20 08:01 0.9 % Sodium Chloride Flush 3 Ml Syringe IVFLUSH 3 ml [facility] Administration Sodium Chloride 3 ml 07/02/20 16:00 07/04/20 08:01 0.9 % Sodium Chloride Flush 3 Ml Syringe IVFLUSH Not Given [facility] Home Medications Medication Instructions Recorded Confirmed Type acetaminophen 650 mg Q4-5H PRN 06/29/20 06/29/20 History albuterol sulfate [ProAir HFA] INHALATION PRN 06/29/20 History apixaban 5 mg PO BID 06/29/20 06/29/20 History atorvastatin 20 mg PO BEDTIME 06/29/20 06/29/20 History metformin 1,000 mg PO BID 06/29/20 06/29/20 History metoprolol tartrate 50 mg PO BID 06/29/20 06/29/20 History morphine 15 mg PO Q12H 06/29/20 06/30/20 History morphine 15 mg PO Q4H PRN 06/29/20 06/30/20 History morphine 30 mg PO Q12H 06/29/20 06/30/20 History multivitamin 1 tab PO DAILY 06/29/20 06/30/20 History sitagliptin [Januvia] 100 mg PO DAILY 06/29/20 06/29/20 History Allergies Allergy/AdvReac Type Severity Reaction Status Date / Time aspirin [ASA] Allergy Unknown Verified 06/29/20 15:54 erythromycin base Allergy Itching Verified 06/29/20 15:54 latex Allergy Itching Verified 06/29/20 15:54 Penicillins Allergy Itching Verified 06/29/20 15:54 Physical Exam Vital signs: Vital Signs Temp 97.9 F 07/04/20 07:59 Pulse 95 07/04/20 07:59 Resp 18 07/04/20 07:59 BP 102/58 L 07/04/20 07:59 Pulse Ox 96 07/04/20 07:59 Intake & Output 07/03/20 07/04/20 07/04/20 18:59 06:59 18:59 Intake Total 1000 / 2609 1609 / 2609 Output Total 200 / 750 550 / 750 Balance 800 / 1859 1059 / 1859 Urine Output (Average ml/kg/hr) 0.18 0.48 Intake: Intake, Oral Amount 360 / 360 Intake (Blood Product) Amount 199 / 199 Apheresis Platelets (E3089) 199 / 199 Unit [id number] Intake, Other Amount 50 / 50 Apheresis Platelets (E3089) 50 / 50 Unit [id number] Intake, IV Amount 1000 / 2000 1000 / 2000 Lactated Ringers 1,000 ml @ 100 1000 / 2000 1000 / 2000 mls/hr IVCONT .Q10H [facility] Rx#: [id number] Output: Output, Urine Amount 200 / 200 Output, Urine Amount (Catheter) 550 / 550 Urethral 550 / 550 Other: Lunch % Eaten 50% Urine Color Concentrated Weight 94.9 kg - Constitutional Present: no acute distress, chronically ill appearing - Routine HEENT Exam Head: Present: normal inspection Eye: Present: conjunctivae pale - Routine Neck Exam Absent: lymphadenopathy - Routine Respiratory Exam Absent: respiratory distress, rhonchi, wheezes - Routine Cardiovascular Exam Cardiovascular: Present: S1, S2 - Routine Abdominal Exam Present: distended, soft - Routine Extremities Exam Comments: Both legs swollen left greater than light. - Routine Skin Exam Present: intact. Absent: cyanosis - Routine Neurological Exam Present: alert, oriented X3 Hem/Onc Consult Result - Labs CBC & Chem 7: 07/04/20 05:56 07/04/20 05:56 Labs: Short CBC 07/03/20 07/04/20 Range/Units 17:14 05:56 WBC 16.5 H 16.9 H (4.8-10.8) X10*3/uL Hgb 8.6 L 7.8 L (12.0-16.0) g/dl Hct 26.4 L 24.1 L (37-47) % Plt Count 28 L D 72 L D (160-400) X10*3/uL BMP 07/04/20 05:56 Sodium 131 L Potassium 4.2 Chloride 93 L Carbon Dioxide 27 BUN 14 Creatinine 0.49 L Calcium 7.6 L Liver Function 07/04/20 Range/Units 05:56 Total Bilirubin 1.7 H (0.0-1.0) mg/dL Direct Bilirubin 1.2 H (0.0-0.5) mg/dL AST 75 H (5-31) U/L ALT 31 (0-31) U/L Alkaline Phosphatase 489 H D (39-117) U/L Albumin 1.9 L D (3.5-5.0) g/dL Assessment and Plan (1) Pulmonary embolism Status: Acute Qualifiers: Chronicity: acute This is an unfortunate 55-year-old woman with metastatic pancreatic cancer, bilateral lower extremity superficial thrombophlebitis diagnosed in February 2020 who is admitted with left hip fracture. She is being treated for her cancer at [facility]. Records from [facility] reveals that she was diagnosed with uterine cancer, grade 1 endometrioid adenocarcinoma in September 2019. She underwent laparoscopic hysterectomy, BSO and sentinel pelvic lymph node dissection. In early February 2020 she developed superficial thrombophlebitis of both her lower extremities. A CT scan on 04/12/2020 of the abdomen and pelvis revealed a 2.3 cm cystic lesion in the pancreatic tail, hepatic lesions, peritoneal nodules, bibasilar pulmonary nodules measuring up to 7 mm. On 05/15/[address]-guided biopsy of liver was performed, this showed adenocarcinoma, IHC consistent with pancreatic primary. She was diagnosed with COVID-19 infection in May 2020 and therefore treatment was delayed. She received chemotherapy with gemcitabine and Abraxane administered day 1, 8 and 15 every 28 days. She appears to have had at least 2 infusions, the last 1 being a week to 10 days ago. Anemia could be related to recent chemotherapy, surgery as well as underlying malignancy. Her platelet counts were normal in May, therefore this decline is probably related to chemotherapy. She is on heparin for anticoagulation for acute pulmonary embolism. It would be better to transition her to low molecular weight heparin since she appears to be having DVT while on apixaban although it may have been interrupted for the surgery. Rule out DIC and TTP which can be seen with gemcitabine. I will review peripheral smear as well. Monitor LDH and LFTs daily in addition to other labs. Further recommendations to follow. I thank you very much for this consultation.
[2020-07-04] MEDS: Metoprolol Tartrate 50 MG TABLET PO ×2 (11:21→21:00)
[2020-07-04] MEDS: Morphine Sulfate Immed Release 15 MG TABLET PO (11:24)
--- NOTE | 2020-07-04 11:39 | MHC.CM.PN ---
CM met with patient at the bedside to discuss discharge plans since PT is recommending STR. Patient's choices are [facility] at [place] and [facility]. Referrals made via allscripts. Patient states she does not have a preference as long as it is one of her choices. Patient will need BLS transport. CM will continue to follow for discharge needs.
[2020-07-04 11:53] LABS: Glucose, Whole Blood 188 mg/dL (60-115)
[2020-07-04] MEDS: Insulin Lispro 100 UNIT/ML 3 ML VIAL SUBCUT ×2 (12:00→16:56)
--- NOTE | 2020-07-04 13:59 | P.PNIM_ITS ---
Subjective Subjective Date of Service: 07/04/20 Interval History: the patient was seen and evaluated this morning Laying in bed, feels comfortable Noticed to have a drop in her hemoglobin level Denies any fever, chills or shortness of breath Still has Drop in Platelets, decreased oozing blood from surgical site and mild hematuria No reported other overnight events. Systemic review: No fever, chills or weakness No chest pain, palpitation No shortness of breath or coughing No abdominal pain, nausea or vomiting No urinary symptoms No any rash or wounds Physical Exam Vital Signs: Vital Signs: Last Vital Signs Temp 98.1 F 07/04/20 11:26 Pulse 114 H 07/04/20 11:26 Resp 18 07/04/20 11:26 BP 107/61 07/04/20 11:26 Pulse Ox 96 07/04/20 07:59 Body Mass Index 39.5 . Constitutional : Alert, oriented, not in distress Neck : Normal inspection, Supple Cardiovascular : RRR, S1 S2, no lower extremity edema Respiratory : Good bilateral air entry, no crackles, wheezes or rhonchi Gastrointestinal: soft, lax, Normal bowel sounds, Non tender Skin : Warm/Dry, No rash Neurological : Alert & oriented x3, No focal deficit Muscular, left lower extremity externally surgical site clean, mild to oozing of blood, covered with dressing Objective Data Current Medications Generic Name Dose Route Start Last Admin Trade Name Freq PRN Reason Stop Dose Admin Acetaminophen 650 mg 06/30/20 01:22 07/01/20 16:30 Acetaminophen 325 Mg Tablet PO 650 mg Q6H PRN Administration Pain, Mild (Pain Scale 1-3) Apixaban 5 mg 07/03/20 09:00 07/04/20 11:22 Apixaban 5 Mg Tablet PO Not Given BID [facility] Atorvastatin Calcium 20 mg 06/30/20 21:00 07/03/20 20:44 Atorvastatin Calcium 20 Mg Tablet PO 20 mg BEDTIME [facility] Administration Insulin Human Lispro 0 unit 06/30/20 11:30 07/04/20 12:00 Insulin Lispro 100 Unit/Ml 3 Ml Vial SUBCUT 2 unit QIDACHS [facility] Administration Protocol Metoprolol Tartrate 50 mg 07/02/20 18:15 07/04/20 11:21 Metoprolol Tartrate 50 Mg Tablet PO 50 mg BID [facility] Administration Protocol Morphine Sulfate 15 mg 06/30/20 01:22 07/04/20 11:24 Morphine Sulfate Immed Release 15 Mg Tablet PO 15 mg Q4H PRN Administration Pain Morphine Sulfate 3 mg 07/02/20 15:57 07/04/20 08:01 Morphine Sulfate 4 Mg/Ml Cartridge IVPUSH 3 mg Q2H PRN Administration Pain, Severe (Pain Scale 7-10) Naloxone HCl 0.2 mg 07/02/20 15:57 Naloxone Hcl 0.4 Mg/Ml Vial IVPUSH Q2M PRN Excessive sedation or RR < 8 Ondansetron HCl 4 mg 07/02/20 12:00 Ondansetron Hcl 4 Mg/2 Ml Vial IVPUSH ONCE PRN Nausea and Vomiting Sodium Chloride 3 ml 06/30/20 08:00 07/04/20 08:01 0.9 % Sodium Chloride Flush 3 Ml Syringe IVFLUSH 3 ml QSHIFT [facility] Administration Sodium Chloride 3 ml 07/02/20 16:00 07/04/20 08:01 0.9 % Sodium Chloride Flush 3 Ml Syringe IVFLUSH Not Given QSHIFT [facility] Labs CBC & Chem 7: 07/04/20 05:56 07/04/20 05:56 Microbiology Microbiology Results: Microbiology 06/29/20 20:24 Blood - Venous Blood Culture - Preliminary No growth after 48 hours. 06/29/20 19:46 Blood - Venous Blood Culture - Preliminary No growth after 48 hours. Assessment and Plan (1) Medication induced coagulopathy: Status: Deleted (2) Leukocytosis: Status: Acute (3) Closed fracture of left hip: Status: Acute (4) Hypotension: Status: Acute (5) Chronic respiratory failure with hypoxia: Status: Acute (6) Pancreatic carcinoma metastatic to liver: Status: Acute (7) Acute on chronic blood loss anemia: Status: Acute Assessment and Plan: A 55 years old lady with PMH of endometrial cancer post hysterectomy, metastatic pancreatic cancer on chemo, diabetes, DVT on Eliquis who presents to the hospital for increase left hip pain. Acute on chronic blood loss anemia Hemoglobin dropped to 7.8 Likely secondary to oozing from wound, hematuria To transfuse a unit of blood Hematology input appreciated, change her anticoagulation to full-dose Lovenox if platelet remains above 70 Follow H&H Left hip close fractures secondary to pathological fractures Orthopedic team input appreciated, surgery went well Monitor H&H PT eval Thrombocytopenia Platelets improved to 70 today after 1 unit transfusion Could be secondary to recent chemotherapy, malignancy and surgery on Eliquis, to hold Monitor H&H Follow LDH and liver enzymes Hypotension Seems to be chronic looking add visits to [facility] Hold metoprolol l for now Monitor blood pressure Continue gentle hydration Medication induced coagulopathy INR 3.2 secondary to Eliquis , liver disease Hold Eliquis for now Monitor PT INR Leukocytosis Seems to be chronic looking back at his [facility] visits recently No clear source of infection at this point Continue to monitor any signs of infection DVT/Pulmonary embolism PE Noted on CTA done in ED Patient has been treated for LLE DVT with Eliquis To change to Lovenox DVT PPX DC Eliquis, to use Lovenox SCDs for now
--- NOTE | 2020-07-04 14:08 | MHC.CLN ---
F/U 50% PO DIET RX: 1800DM-APPROPRIATE RECOMMEND ADDING ENSURE MAX R/T LOW ALBUMIN AND FRAGILE SKIN FOLLOWING
[2020-07-04 16:44] LABS: Glucose, Whole Blood 171 mg/dL (60-115)
[2020-07-04 20:20] LABS: Glucose, Whole Blood 141 mg/dL (60-115)
[2020-07-04] MEDS: Atorvastatin Calcium 20 MG TABLET PO (21:00)
[2020-07-05] VITALS (10 sets, daily range): BP systolic 97–126; BP diastolic 52–70; PULSE 82–98; RESP 17–19; TEMP 36.4–36.7; O2SAT 94–98
[2020-07-05] MEDS: 0.9 % Sodium Chloride Flush 3 ML SYRINGE IVFLUSH ×6 (00:03→23:54)
[2020-07-05] MEDS: Morphine Sulfate 4 MG/ML CARTRIDGE 3 MG IVPUSH ×4 (00:12→21:22)
[2020-07-05 06:43] LABS: Alanine Aminotransferase 23 U/L (0-31); Albumin Level 1.9 g/dL (3.5-5.0); Alkaline Phosphatase 564 U/L (39-117); Anion Gap 13 (12-20); Aspartate Amino Transferase 47 U/L (5-31); Bilirubin Direct 1.2 mg/dL (0.0-0.5); Bilirubin Total 1.7 mg/dL (0.0-1.0); Blood Urea Nitrogen 13 mg/dL (9-16); Calcium 7.7 mg/dL (8.4-10.2); Carbon Dioxide 29 mmol/L (22-29); Chloride 92 mmol/L (96-108); Creatinine Clr Calc Pharmacy 129.5; Estimated Glomerular Filt Rate > 60; Glucose Random 126 mg/dL (60-115); Lactate Dehydrogenase 633 U/L (122-220); Potassium 4.3 mmol/l (3.3-5.1); Sodium 130 mmol/L (135-145); Total Protein 4.5 g/dL (6.5-8.0)
[2020-07-05 06:46] LABS: Hematocrit 29.4 % (37-47); Hemoglobin 9.8 g/dl (12.0-16.0); Mean Corpuscular HGB Conc 33.3 g/dl (31.0-35.0); Mean Corpuscular Hemoglobin 27.4 pg (27.0-33.0); Mean Corpuscular Volume 82.1 fL (80-98); Red Blood Count 3.58 X10*6/uL (4.20-5.50); Red Cell Distribution Width 24.4 % (11.0-16.0); White Blood Count 23.4 X10*3/uL (4.8-10.8)
[2020-07-05 06:47] LABS: Platelet Count 48 X10*3/uL (160-400)
[2020-07-05 06:48] LABS: NRBC Pct Auto 9.1 /100WBC (0.0-0.2)
[2020-07-05 06:54] LABS: INTERNATIONAL NORM RATIO 2.9 (0.9-1.1); Prothrombin Time 35.2 SEC (10.8-13.0)
[2020-07-05 08:03] LABS: Glucose, Whole Blood 151 mg/dL (60-115)
[2020-07-05] MEDS: Insulin Lispro 100 UNIT/ML 3 ML VIAL SUBCUT ×3 (08:14→17:24)
--- NOTE | 2020-07-05 10:25 | MHC.CM.PN ---
CM met with patient to explain the 3 STR's we made referrals to do not have a bed available. next choices are [facility], [facility], and [facility]. Referral made via allscripts. CM will continue to follow for discharge needs.
[2020-07-05 11:43] LABS: Glucose, Whole Blood 165 mg/dL (60-115)
[2020-07-05] MEDS: Metoprolol Tartrate 50 MG TABLET PO (11:51)
[2020-07-05] MEDS: Acetaminophen 325 MG TABLET 650 MG PO (11:56)
[2020-07-05] MEDS: Furosemide 20 MG/2 ML VIAL IVPUSH (12:37)
--- NOTE | 2020-07-05 15:09 | MHC.CM.PN ---
MELINDA spoke with Vannessa at [facility] [phone] to question chemo treatment plan. States Dr Sena wants to follow up with patient before deciding treatment plan. Vannessa or Geovanna should be returning call with appt confirmation. Right now her appt is 07/16/20 at 10:30 am. MELINDA will continue to follow for discharge needs.
[2020-07-05 17:13] LABS: Glucose, Whole Blood 163 mg/dL (60-115)
--- NOTE | 2020-07-05 17:33 | HO.PM.IMPN ---
Subjective Subjective Date of Service: 07/05/20 Interval History: the patient was seen and evaluated this morning Laying in bed, feels comfortable Denies any fever, chills or shortness of breath Platelets a dropped again, no bleeding the noted No reported other overnight events. Systemic review: No fever, chills or weakness No chest pain, palpitation No shortness of breath or coughing No abdominal pain, nausea or vomiting No urinary symptoms No any rash or wounds Physical Exam Vital Signs: Vital Signs: Last Vital Signs Temp 97.8 F 07/05/20 15:12 Pulse 83 07/05/20 15:12 Resp 18 07/05/20 15:12 BP 102/59 L 07/05/20 15:12 Pulse Ox 95 07/05/20 15:12 Body Mass Index 39.5 Constitutional : Alert, oriented, not in distress Neck : Normal inspection, Supple Cardiovascular : RRR, S1 S2, +2 lower extremity edema Respiratory : Good bilateral air entry, no crackles, wheezes or rhonchi Gastrointestinal: soft, lax, Normal bowel sounds, Non tender Skin : Warm/Dry, No rash Neurological : Alert & oriented x3, No focal deficit Muscular, left lower extremity externally surgical site clean, mild to oozing of blood, covered with dressing Objective Data Current Medications Generic Name Dose Route Start Last Admin Trade Name Freq PRN Reason Stop Dose Admin Acetaminophen 650 mg 06/30/20 01:22 07/05/20 11:56 Acetaminophen 325 Mg Tablet PO 650 mg Q6H PRN Administration Pain, Mild (Pain Scale 1-3) Atorvastatin Calcium 20 mg 06/30/20 21:00 07/04/20 21:00 Atorvastatin Calcium 20 Mg Tablet PO 20 mg BEDTIME [facility] Administration Furosemide 20 mg 07/05/20 12:05 07/05/20 12:37 Furosemide 20 Mg/2 Ml Vial IVPUSH 20 mg DAILY [facility] Administration Protocol Insulin Human Lispro 0 unit 06/30/20 11:30 07/05/20 17:24 Insulin Lispro 100 Unit/Ml 3 Ml Vial SUBCUT 2 unit QIDACHS [facility] Administration Protocol Metoprolol Tartrate 50 mg 07/02/20 18:15 07/05/20 11:51 Metoprolol Tartrate 50 Mg Tablet PO 50 mg BID [facility] Administration Protocol Morphine Sulfate 3 mg 07/02/20 15:57 07/05/20 08:14 Morphine Sulfate 4 Mg/Ml Cartridge IVPUSH 3 mg Q2H PRN Administration Pain, Severe (Pain Scale 7-10) Naloxone HCl 0.2 mg 07/02/20 15:57 Naloxone Hcl 0.4 Mg/Ml Vial IVPUSH Q2M PRN Excessive sedation or RR < 8 Ondansetron HCl 4 mg 07/02/20 12:00 Ondansetron Hcl 4 Mg/2 Ml Vial IVPUSH ONCE PRN Nausea and Vomiting Sodium Chloride 3 ml 06/30/20 08:00 07/05/20 17:25 0.9 % Sodium Chloride Flush 3 Ml Syringe IVFLUSH 3 ml QSHIFT [facility] Administration Sodium Chloride 3 ml 07/02/20 16:00 07/05/20 17:25 0.9 % Sodium Chloride Flush 3 Ml Syringe IVFLUSH 3 ml QSHIFT [facility] Administration Labs CBC & Chem 7: 07/05/20 05:24 07/05/20 05:24 Microbiology Microbiology Results: Microbiology 06/29/20 20:24 Blood - Venous Blood Culture - Final No growth after 5 days. 06/29/20 19:46 Blood - Venous Blood Culture - Final No growth after 5 days. Assessment and Plan (1) Medication induced coagulopathy: Status: Deleted (2) Leukocytosis: Status: Acute (3) Closed fracture of left hip: Status: Acute (4) Hypotension: Status: Acute (5) Chronic respiratory failure with hypoxia: Status: Acute (6) Pancreatic carcinoma metastatic to liver: Status: Acute (7) Acute on chronic blood loss anemia: Status: Acute Assessment and Plan: A 55 years old lady with PMH of endometrial cancer post hysterectomy, metastatic pancreatic cancer on chemo, diabetes, DVT on Eliquis who presents to the hospital for increase left hip pain. Acute on chronic blood loss anemia Hemoglobin improved to 8.8 after 1 unit transfusion Hematology input appreciated, change her anticoagulation to full-dose Lovenox if platelet remains above 70 Follow H&H Fluid overload +2 edema in her lower extremities Secondary to IV fluid and hypoalbuminemia To use IV Lasix Left hip close fractures secondary to pathological fractures Orthopedic team input appreciated, surgery went well Monitor H&H PT eval Thrombocytopenia Platelets dropped to 48 today after 1 unit transfusion secondary to recent chemotherapy, malignancy and surgery Discontinue Eliquis Monitor H&H Follow LDH and liver enzymes Hypotension Seems to be chronic looking add visits to [facility] Hold metoprolol l for now Monitor blood pressure Continue gentle hydration Medication induced coagulopathy INR 3.2 secondary to Eliquis , liver disease Hold Eliquis for now Monitor PT INR Leukocytosis Seems to be chronic looking back at his [facility] hospital visits recently No clear source of infection at this point Continue to monitor any signs of infection DVT/Pulmonary embolism PE Noted on CTA done in ED Patient has been treated for LLE DVT with Eliquis, to discontinue To change to Lovenox DVT PPX DC Eliquis, to use Lovenox when platelets above 70 SCDs for now
[2020-07-05 20:40] LABS: Glucose, Whole Blood 132 mg/dL (60-115)
[2020-07-05] MEDS: Atorvastatin Calcium 20 MG TABLET PO (21:06)
[2020-07-06] VITALS (10 sets, daily range): BP systolic 96–111; BP diastolic 53–65; PULSE 92–100; RESP 16–20; TEMP 36.4–36.9; O2SAT 96–98
[2020-07-06] MEDS: Morphine Sulfate 4 MG/ML CARTRIDGE 3 MG IVPUSH ×3 (00:02→18:01)
[2020-07-06] MEDS: 0.9 % Sodium Chloride Flush 3 ML SYRINGE IVFLUSH ×4 (00:08→17:05)
[2020-07-06 06:45] LABS: INTERNATIONAL NORM RATIO 3.3 (0.9-1.1); Prothrombin Time 40.2 SEC (10.8-13.0)
[2020-07-06 07:04] LABS: Hemoglobin 9.8 g/dl (12.0-16.0); Mean Corpuscular HGB Conc 32.7 g/dl (31.0-35.0); Mean Corpuscular Hemoglobin 27.5 pg (27.0-33.0); Red Blood Count 3.57 X10*6/uL (4.20-5.50); Red Cell Distribution Width 25.6 % (11.0-16.0); White Blood Count 23.6 X10*3/uL (4.8-10.8)
[2020-07-06 07:06] LABS: Platelet Count 50 X10*3/uL (160-400)
[2020-07-06 07:08] LABS: Anion Gap 14 (12-20); Blood Urea Nitrogen 13 mg/dL (9-16); Calcium 7.7 mg/dL (8.4-10.2); Carbon Dioxide 29 mmol/L (22-29); Chloride 91 mmol/L (96-108); Creatinine Clr Calc Pharmacy 127.1; Estimated Glomerular Filt Rate > 60; Glucose Random 116 mg/dL (60-115); Potassium 3.9 mmol/l (3.3-5.1); Sodium 130 mmol/L (135-145)
[2020-07-06] MEDS: Acetaminophen 325 MG TABLET 650 MG PO ×3 (07:42→21:30)
[2020-07-06] MEDS: oxyCODONE HCl Immed Release 5 MG TABLET 10 MG PO ×3 (07:42→21:30)
[2020-07-06] MEDS: Furosemide 20 MG/2 ML VIAL IVPUSH ×2 (07:42→17:04)
[2020-07-06 08:11] LABS: Glucose, Whole Blood 141 mg/dL (60-115)
--- NOTE | 2020-07-06 08:12 | PM.PNORT ---
Subjective Subjective Date of Service: 07/06/20 Interval history: POD4 s/p lt femoral nailing. Resting comfortably in bed. Increased pain overnight. Denies SOB, chest pain, abd pain. Physical Exam Vital Signs: Vital Signs: Last Vital Signs Temp 98.4 F 07/06/20 03:26 Pulse 92 07/06/20 03:26 Resp 16 07/06/20 04:56 BP 103/61 07/06/20 04:55 Pulse Ox 97 07/06/20 03:26 Body Mass Index 39.5 Const: General: cooperative, healthy appearing and no acute distress Resp: Effort & Inspection: normal respiratory effort and able to speak in complete sentences Cardio: Rate: regular rate Peripheral pulses: Peripheral pulses 2+ throughout GI: Palpation (GI): Soft to palpation Skin: Lesions: no lesions Rashes: no rashes Extrem: Other: Lt hip no ecchymosis, redness, or drainage. Dressing is clean, dry and intact. NVI Progress Note: A&P Assessment and plan (1) Closed fracture of left hip: Status: Acute Assessment and Plan: Continue pain mgmnt Oxycodone 10mg po Q4Hrs Continue Eliquis for dvt ppx Continue PT for lt femoral nailing Dispo planning-Pending PT eval, pain mgmnt Fall Risk Details Current Medications: Current Medications Generic Name Dose Route Start Last Admin Trade Name Freq PRN Reason Stop Dose Admin Acetaminophen 650 mg 06/30/20 01:22 07/06/20 07:42 Acetaminophen 325 Mg Tablet PO 650 mg Q6H PRN Administration Pain, Mild (Pain Scale 1-3) Atorvastatin Calcium 20 mg 06/30/20 21:00 07/05/20 21:06 Atorvastatin Calcium 20 Mg Tablet PO 20 mg BEDTIME CARINA Administration Furosemide 20 mg 07/05/20 12:05 07/06/20 07:42 Furosemide 20 Mg/2 Ml Vial IVPUSH 20 mg DAILY [facility]INA Administration Protocol Insulin Human Lispro 0 unit 06/30/20 11:30 07/06/20 07:48 Insulin Lispro 100 Unit/Ml 3 Ml Vial SUBCUT Not Given QIDACHS [facility] Protocol Metoprolol Tartrate 50 mg 07/02/20 18:15 07/05/20 21:20 Metoprolol Tartrate 50 Mg Tablet PO Not Given BID [facility] Protocol Morphine Sulfate 3 mg 07/02/20 15:57 07/06/20 04:56 Morphine Sulfate 4 Mg/Ml Cartridge IVPUSH 3 mg Q2H PRN Administration Pain, Severe (Pain Scale 7-10) Naloxone HCl 0.2 mg 07/02/20 15:57 Naloxone Hcl 0.4 Mg/Ml Vial IVPUSH Q2M PRN Excessive sedation or RR < 8 Ondansetron HCl 4 mg 07/02/20 12:00 Ondansetron Hcl 4 Mg/2 Ml Vial IVPUSH ONCE PRN Nausea and Vomiting Oxycodone HCl 10 mg 07/06/20 07:23 07/06/20 07:42 Oxycodone Hcl Immed Release 5 Mg Tablet PO 10 mg Q6H PRN Administration Pain, Moderate (Pain Scale 4-6 Sodium Chloride 3 ml 06/30/20 08:00 07/06/20 07:39 0.9 % Sodium Chloride Flush 3 Ml Syringe IVFLUSH 3 ml QSHIFT [facility] Administration Sodium Chloride 3 ml 07/02/20 16:00 07/06/20 07:48 0.9 % Sodium Chloride Flush 3 Ml Syringe IVFLUSH 3 ml QSHIFT [facility] Administration Time Spent With Patient Time: Total time spent is greater than 50% in coordination of care (as documented) at patient's floor/unit and/or counseling patient: Time with patient: less than 15 minutes
[2020-07-06 11:48] LABS: Glucose, Whole Blood 169 mg/dL (60-115)
[2020-07-06] MEDS: Insulin Lispro 100 UNIT/ML 3 ML VIAL SUBCUT (11:57)
--- NOTE | 2020-07-06 12:34 | MHC.CLN ---
F/U 50% AVG PO DIET RX: 1800DM-APPROPRIATE PT RECEIVING ENSURE MAX PROVIDES 450KCALS, 90G PROTEIN FOLLOWING
--- NOTE | 2020-07-06 12:53 | MHC.CM.PN ---
Return call from [facility] at cancer center, patient's appt remains 07/16/20 at 10:[address] Sena. Discharge plan is to return to [facility] where patient is a bed hold. Referral made via allscripts. Patient will need BLS transport. CM will continue to follow patient for discharge needs.
--- NOTE | 2020-07-06 15:04 | HO.PM.IMPN ---
Subjective Subjective Date of Service: 07/06/20 Interval History: the patient was seen and evaluated this morning Laying in bed, feels tired and weak Denies any fever, chills or shortness of breath Platelets low but stable, no bleeding No reported other overnight events. Systemic review: No fever, chills or weakness No chest pain, palpitation No shortness of breath or coughing No abdominal pain, nausea or vomiting No urinary symptoms No any rash or wounds Physical Exam Vital Signs: Vital Signs: Last Vital Signs Temp 97.5 F 07/06/20 11:49 Pulse 100 07/06/20 11:49 Resp 20 07/06/20 11:49 BP 111/53 L 07/06/20 11:52 Pulse Ox 98 07/06/20 11:49 Body Mass Index 39.5 Constitutional : Alert, oriented, not in distress Neck : Normal inspection, Supple Cardiovascular : RRR, S1 S2, +2 lower extremity edema Respiratory :decreased bilateral air entry, no crackles, wheezes or rhonchi Gastrointestinal: soft, lax, Normal bowel sounds, Non tender Skin : Warm/Dry, No rash Neurological : Alert & oriented x3, No focal deficit Muscular, left lower extremity externally surgical site clean,no oozing of blood, covered with dressing Objective Data Current Medications Generic Name Dose Route Start Last Admin Trade Name Freq PRN Reason Stop Dose Admin Acetaminophen 650 mg 06/30/20 01:22 07/06/20 13:38 Acetaminophen 325 Mg Tablet PO 650 mg Q6H PRN Administration Pain, Mild (Pain Scale 1-3) Atorvastatin Calcium 20 mg 06/30/20 21:00 07/05/20 21:06 Atorvastatin Calcium 20 Mg Tablet PO 20 mg BEDTIME CARINA Administration Furosemide 20 mg 07/05/20 12:05 07/06/20 07:42 Furosemide 20 Mg/2 Ml Vial IVPUSH 20 mg DAILY CARINA Administration Protocol Insulin Human Lispro 0 unit 06/30/20 11:30 07/06/20 11:57 Insulin Lispro 100 Unit/Ml 3 Ml Vial SUBCUT 2 unit QIDACHS CARINA Administration Protocol Metoprolol Tartrate 50 mg 07/02/20 18:15 07/06/20 08:15 Metoprolol Tartrate 50 Mg Tablet PO Not Given BID [facility] Protocol Morphine Sulfate 3 mg 07/02/20 15:57 07/06/20 04:56 Morphine Sulfate 4 Mg/Ml Cartridge IVPUSH 3 mg Q2H PRN Administration Pain, Severe (Pain Scale 7-10) Naloxone HCl 0.2 mg 07/02/20 15:57 Naloxone Hcl 0.4 Mg/Ml Vial IVPUSH Q2M PRN Excessive sedation or RR < 8 Ondansetron HCl 4 mg 07/02/20 12:00 Ondansetron Hcl 4 Mg/2 Ml Vial IVPUSH ONCE PRN Nausea and Vomiting Oxycodone HCl 10 mg 07/06/20 07:23 07/06/20 13:39 Oxycodone Hcl Immed Release 5 Mg Tablet PO 10 mg Q6H PRN Administration Pain, Moderate (Pain Scale 4-6 Sodium Chloride 3 ml 06/30/20 08:00 07/06/20 07:39 0.9 % Sodium Chloride Flush 3 Ml Syringe IVFLUSH 3 ml QSHIFT CARINA Administration Sodium Chloride 3 ml 07/02/20 16:00 07/06/20 07:48 0.9 % Sodium Chloride Flush 3 Ml Syringe IVFLUSH 3 ml QSHIFT CARINA Administration Labs CBC & Chem 7: 07/06/20 05:40 07/06/20 05:40 Microbiology Microbiology Results: Microbiology 06/29/20 20:24 Blood - Venous Blood Culture - Final No growth after 5 days. 06/29/20 19:46 Blood - Venous Blood Culture - Final No growth after 5 days. Assessment and Plan (1) Medication induced coagulopathy: Status: Deleted (2) Leukocytosis: Status: Acute (3) Closed fracture of left hip: Status: Acute (4) Hypotension: Status: Acute (5) Chronic respiratory failure with hypoxia: Status: Acute (6) Pancreatic carcinoma metastatic to liver: Status: Acute (7) Acute on chronic blood loss anemia: Status: Acute Assessment and Plan: A 55 years old lady with PMH of endometrial cancer post hysterectomy, metastatic pancreatic cancer on chemo, diabetes, DVT on Eliquis who presents to the hospital for increase left hip pain. Acute on chronic blood loss anemia Hemoglobin improved to 9.8 after 1 unit transfusion Hematology input appreciated, change her anticoagulation to full-dose Lovenox if platelet remains above 70 Follow H&H Fluid overload +2 edema in her lower extremities Secondary to IV fluid and hypoalbuminemia Continue IV Lasix Left hip close fractures secondary to pathological fractures Orthopedic team input appreciated, surgery went well Monitor H&H PT eval Thrombocytopenia Platelets dropped to 50 today S\P 1 unit transfusion Secondary to recent chemotherapy, malignancy and surgery Discontinue Eliquis Monitor H&H Follow LDH and liver enzymes To follow with her oncologist Dr Elizabeth aftr discharge Hypotension Seems to be chronic looking add visits to [facility] Hold metoprolol l for now Monitor blood pressure Continue gentle hydration Medication induced coagulopathy INR 3.2 secondary to Eliquis , liver disease Hold Eliquis for now Monitor PT INR Leukocytosis Seems to be chronic looking back at his [facility] visits recently No clear source of infection at this point Continue to monitor any signs of infection DVT/Pulmonary embolism PE Noted on CTA done in ED Patient has been treated for LLE DVT with Eliquis, to discontinue To change to Lovenox DVT PPX DC Eliquis, to use full dose Lovenox when platelets above 70 Lovenox 40 mg
[2020-07-06 16:36] LABS: Glucose, Whole Blood 134 mg/dL (60-115)
[2020-07-06] MEDS: Enoxaparin Sodium 40 MG/0.4 ML SYRINGE SUBCUT (17:05)
[2020-07-06] MEDS: polyethylene glycoL 3350 17 GM POWD.PACK PO (18:21)
[2020-07-06] MEDS: Atorvastatin Calcium 20 MG TABLET PO (21:32)
[2020-07-06 21:42] LABS: Glucose, Whole Blood 141 mg/dL (60-115)
[2020-07-07] VITALS (9 sets, daily range): BP systolic 96–112; BP diastolic 53–59; PULSE 91–103; RESP 16–18; TEMP 36.5–36.7; O2SAT 95–97
[2020-07-07] MEDS: 0.9 % Sodium Chloride Flush 3 ML SYRINGE IVFLUSH ×6 (00:56→21:38)
[2020-07-07 06:22] LABS: INTERNATIONAL NORM RATIO 3.2 (0.9-1.1); Prothrombin Time 38.6 SEC (10.8-13.0)
[2020-07-07 06:36] LABS: Anion Gap 17 (12-20); Blood Urea Nitrogen 14 mg/dL (9-16); Calcium 7.5 mg/dL (8.4-10.2); Carbon Dioxide 27 mmol/L (22-29); Chloride 90 mmol/L (96-108); Creatinine Clr Calc Pharmacy 146.8; Estimated Glomerular Filt Rate > 60; Glucose Random 100 mg/dL (60-115); Potassium 3.5 mmol/l (3.3-5.1); Sodium 130 mmol/L (135-145)
[2020-07-07 06:40] LABS: Hematocrit 28.6 % (37-47); Hemoglobin 9.4 g/dl (12.0-16.0); Mean Corpuscular HGB Conc 32.9 g/dl (31.0-35.0); Mean Corpuscular Hemoglobin 27.8 pg (27.0-33.0); Mean Corpuscular Volume 84.6 fL (80-98); Platelet Count 73 X10*3/uL (160-400); Red Blood Count 3.38 X10*6/uL (4.20-5.50); Red Cell Distribution Width 26.2 % (11.0-16.0); White Blood Count 25.8 X10*3/uL (4.8-10.8)
[2020-07-07 06:41] LABS: NRBC Pct Auto 2.1 /100WBC (0.0-0.2); PLT ABN DIST 1
[2020-07-07 08:27] LABS: Glucose, Whole Blood 145 mg/dL (60-115)
[2020-07-07] MEDS: Furosemide 20 MG/2 ML VIAL IVPUSH (08:34)
[2020-07-07] MEDS: oxyCODONE HCl Immed Release 5 MG TABLET 10 MG PO (08:40)
[2020-07-07] MEDS: Enoxaparin Sodium 100 MG/ML SYRINGE 90 MG SUBCUT ×2 (10:00→21:33)
[2020-07-07 11:28] LABS: Glucose, Whole Blood 151 mg/dL (60-115)
[2020-07-07] MEDS: Insulin Lispro 100 UNIT/ML 3 ML VIAL SUBCUT (12:03)
--- NOTE | 2020-07-07 15:53 | P.PNIM_ITS ---
Subjective Subjective Date of Service: 07/07/20 Interval History: the patient was seen and evaluated this morning Laying in bed, feels better but overall she is tired and weak Denies any fever, chills or shortness of breath Platelets improved above 70 today No reported losing blood or bleeding No reported other overnight events. Systemic review: No fever, chills or weakness No chest pain, palpitation No shortness of breath or coughing No abdominal pain, nausea or vomiting No urinary symptoms No any rash or wounds Physical Exam Vital Signs: Vital Signs: Last Vital Signs Temp 98.1 F 07/07/20 12:05 Pulse 103 H 07/07/20 14:12 Resp 18 07/07/20 12:05 BP 108/59 L 07/07/20 14:12 Pulse Ox 95 07/07/20 14:12 Body Mass Index 39.5 Constitutional : Alert, oriented, not in distress Neck : Normal inspection, Supple Cardiovascular : RRR, S1 S2, +2 lower extremity edema Respiratory :decreased bilateral air entry, no crackles, wheezes or rhonchi Gastrointestinal: soft, lax, Normal bowel sounds, Non tender Skin : Warm/Dry, No rash Neurological : Alert & oriented x3, No focal deficit Muscular, left lower extremity externally surgical site clean,, covered with dressing which is saturated by fluids and some blood Objective Data Current Medications Generic Name Dose Route Start Last Admin Trade Name Freq PRN Reason Stop Dose Admin Acetaminophen 650 mg 06/30/20 01:22 07/06/20 21:30 Acetaminophen 325 Mg Tablet PO 650 mg Q6H PRN Administration Pain, Mild (Pain Scale 1-3) Atorvastatin Calcium 20 mg 06/30/20 21:00 07/06/20 21:32 Atorvastatin Calcium 20 Mg Tablet PO 20 mg BEDTIME CARINA Administration Enoxaparin Sodium 90 mg 07/07/20 09:00 07/07/20 10:00 Enoxaparin Sodium 100 Mg/Ml Syringe SUBCUT 90 mg Q12H CARINA Administration Furosemide 40 mg 07/07/20 18:00 Furosemide 20 Mg/2 Ml Vial IVPUSH BID@0900,1800 [facility] Protocol Insulin Human Lispro 0 unit 06/30/20 11:30 07/07/20 12:03 Insulin Lispro 100 Unit/Ml 3 Ml Vial SUBCUT 2 unit QIDACHS [facility] Administration Protocol Metoprolol Tartrate 50 mg 07/02/20 18:15 07/07/20 08:29 Metoprolol Tartrate 50 Mg Tablet PO Not Given BID [facility] Protocol Morphine Sulfate 3 mg 07/02/20 15:57 07/06/20 18:01 Morphine Sulfate 4 Mg/Ml Cartridge IVPUSH 3 mg Q2H PRN Administration Pain, Severe (Pain Scale 7-10) Naloxone HCl 0.2 mg 07/02/20 15:57 Naloxone Hcl 0.4 Mg/Ml Vial IVPUSH Q2M PRN Excessive sedation or RR < 8 Ondansetron HCl 4 mg 07/02/20 12:00 Ondansetron Hcl 4 Mg/2 Ml Vial IVPUSH ONCE PRN Nausea and Vomiting Oxycodone HCl 10 mg 07/06/20 07:23 07/07/20 08:40 Oxycodone Hcl Immed Release 5 Mg Tablet PO 10 mg Q6H PRN Administration Pain, Moderate (Pain Scale 4-6 Sodium Chloride 3 ml 06/30/20 08:00 07/07/20 08:33 0.9 % Sodium Chloride Flush 3 Ml Syringe IVFLUSH 3 ml QSMNFT [facility] Administration Sodium Chloride 3 ml 07/02/20 16:00 07/07/20 08:33 0.9 % Sodium Chloride Flush 3 Ml [facility]ringe [facility]USH [facility] & Chem 7: 07/07/20 05:24 07/07/20 05:24 Microbiology Microbiology Results: Microbiology 06/29/20 20:24 Blood - Venous Blood Culture - Final No growth after 5 days. 06/29/20 19:46 Blood - Venous Blood Culture - Final No growth after 5 days. Assessment and Plan (1) Medication induced coagulopathy: Status: Deleted (2) Leukocytosis: Status: Acute (3) Closed fracture of left hip: Status: Acute (4) Hypotension: Status: Acute (5) Chronic respiratory failure with hypoxia: Status: Acute (6) Pancreatic carcinoma metastatic to liver: Status: Acute (7) Acute on chronic blood loss anemia: Status: Acute Assessment and Plan: A 55 years old lady with PMH of endometrial cancer post hysterectomy, metastatic pancreatic cancer on chemo, diabetes, DVT on Eliquis who presents to the hospital for increase left hip pain. Acute on chronic blood loss anemia Hemoglobin improved to 9.4 after 1 unit transfusion Hematology input appreciated, change her anticoagulation to full-dose Lovenox if platelet remains above 70 Follow H&H Fluid overload +2 edema in her lower extremities Secondary to IV fluid and hypoalbuminemia Increase the dose of IV Lasix Monitor intake and output water restriction to 1200 cc DVT/Pulmonary embolism PE Noted on CTA done in ED Patient has been treated for LLE DVT with Eliquis, to discontinue To start full-dose Lovenox Left hip close fractures secondary to pathological fractures Orthopedic team input appreciated, surgery went well Monitor H&H PT eval Thrombocytopenia Platelets improved to 73 S\P 1 unit transfusion Secondary to recent chemotherapy Monitor H&H Follow LDH and liver enzymes To follow with her oncologist Dr Elizabeth aftr discharge Hypotension Seems to be chronic looking add visits to [facility] Hold metoprolol l for now Monitor blood pressure Continue gentle hydration Medication induced coagulopathy INR 3.2 secondary to Eliquis , liver disease Hold Eliquis for now Monitor PT INR Leukocytosis Seems to be chronic looking back at his [facility] visits recently No clear source of infection at this point Continue to monitor any signs of infection DVT PPX full dose Lovenox
[2020-07-07 16:56] LABS: Glucose, Whole Blood 142 mg/dL (60-115)
[2020-07-07] MEDS: Furosemide 20 MG/2 ML VIAL 40 MG IVPUSH (17:12)
[2020-07-07 21:23] LABS: Glucose, Whole Blood 127 mg/dL (60-115)
[2020-07-07] MEDS: Metoprolol Tartrate 50 MG TABLET PO (21:35)
[2020-07-07] MEDS: Atorvastatin Calcium 20 MG TABLET PO (21:35)
[2020-07-08] VITALS (13 sets, daily range): BP systolic 86–150; BP diastolic 52–79; PULSE 64–103; RESP 18–20; TEMP 36.1–37.1; O2SAT 91–98
--- NOTE | 2020-07-08 | XR_ITS ---
EXAMINATION: XR CHEST CLINICAL INFORMATION: Possible pneumonia. History of metastatic disease. COMPARISON: CXR and Chest CT from 06/29/2020 TECHNIQUE: Frontal view of the chest was obtained. FINDINGS: There is a right chest wall medication port with tip of IJ catheter at junction of the SVC with the right atrium. The multiple bilateral pulmonary nodules are better shown on recent chest CT of 06/29/2020. There are linear, streaky opacities (likely atelectasis) in the superior lingula and right lower lobe. No overt pleural effusion. No pneumothorax. Cardiac silhouette is normal in size. Lytic destruction with pathologic fracture of the left lateral fourth rib is faintly visualized. Also, scattered sclerotic lesions are better shown on the recent CT exam. XR/XR chest 1V IMPRESSION: * No new findings in the chest compared to 06/29/2020. The thoracic abnormalities are better shown on the chest CT of 06/29/2020. Linear, streaky opacities (likely atelectasis) persistent the right base and lingula. * No convincing findings of pneumonia. However, radiographs can be limited for a pneumonia diagnosis. * The known bone metastases are not well seen on this radiograph.
[2020-07-08] MEDS: oxyCODONE HCl Immed Release 5 MG TABLET 10 MG PO (00:38)
[2020-07-08] MEDS: 0.9 % Sodium Chloride Flush 3 ML SYRINGE IVFLUSH ×7 (01:07→21:55)
[2020-07-08 06:49] LABS: Hematocrit 29.6 % (37-47); Hemoglobin 9.7 g/dl (12.0-16.0); Mean Corpuscular HGB Conc 32.8 g/dl (31.0-35.0); Mean Corpuscular Volume 85.3 fL (80-98); NRBC Pct Auto 0.8 /100WBC (0.0-0.2); Platelet Count 163 X10*3/uL (160-400); Red Blood Count 3.47 X10*6/uL (4.20-5.50); Red Cell Distribution Width 26.5 % (11.0-16.0)
[2020-07-08 07:16] LABS: Anion Gap 16 (12-20); Blood Urea Nitrogen 14 mg/dL (9-16); Calcium 7.8 mg/dL (8.4-10.2); Carbon Dioxide 30 mmol/L (22-29); Chloride 89 mmol/L (96-108); Creatinine Clr Calc Pharmacy 129.5; Estimated Glomerular Filt Rate > 60; Glucose Random 97 mg/dL (60-115); Potassium 3.3 mmol/l (3.3-5.1); Sodium 132 mmol/L (135-145)
[2020-07-08 07:22] LABS: White Blood Count 30.7 X10*3/uL (4.8-10.8)
[2020-07-08 07:42] LABS: Glucose, Whole Blood 121 mg/dL (60-115)
[2020-07-08 08:03] LABS: INTERNATIONAL NORM RATIO 2.8 (0.9-1.1)
[2020-07-08] MEDS: Enoxaparin Sodium 100 MG/ML SYRINGE 90 MG SUBCUT ×2 (08:58→21:52)
[2020-07-08 11:28] LABS: Glucose, Whole Blood 153 mg/dL (60-115)
[2020-07-08] MEDS: Insulin Lispro 100 UNIT/ML 3 ML VIAL SUBCUT (11:56)
--- NOTE | 2020-07-08 13:08 | HO.PM.IMPN ---
Subjective Subjective Date of Service: 07/08/20 Interval History: the patient was seen and evaluated this morning Laying in bed, feels better overall, generalized weakness seems to be better Denies any fever, chills or shortness of breath or coughing Platelets improved above 70 today No reported losing blood or bleeding No reported other overnight events. Systemic review: No fever, chills or weakness No chest pain, palpitation No shortness of breath or coughing No abdominal pain, nausea or vomiting No urinary symptoms No any rash or wounds Physical Exam Vital Signs: Vital Signs: Last Vital Signs Temp 97 F 07/08/20 11:38 Pulse 95 07/08/20 11:38 Resp 20 07/08/20 11:38 BP 99/52 L 07/08/20 11:38 Pulse Ox 95 07/08/20 11:38 Body Mass Index 39.5 Constitutional : Alert, oriented, not in distress Neck : Normal inspection, Supple Cardiovascular : RRR, S1 S2, +1 lower extremity edema Respiratory :decreased bilateral air entry, no crackles, wheezes or rhonchi Gastrointestinal: soft, lax, Normal bowel sounds, Non tender Skin : Warm/Dry, No rash Neurological : Alert & oriented x3, No focal deficit Muscular, left lower extremity externally surgical site clean,, covered with dressing Objective Data Current Medications Generic Name Dose Route Start Last Admin Trade Name Freq PRN Reason Stop Dose Admin Acetaminophen 650 mg 06/30/20 01:22 07/06/20 21:30 Acetaminophen 325 Mg Tablet PO 650 mg Q6H PRN Administration Pain, Mild (Pain Scale 1-3) Atorvastatin Calcium 20 mg 06/30/20 21:00 07/07/20 21:35 Atorvastatin Calcium 20 Mg Tablet PO 20 mg BEDTIME CARINA Administration Enoxaparin Sodium 90 mg 07/07/20 09:00 07/08/20 08:58 Enoxaparin Sodium 100 Mg/Ml Syringe SUBCUT 90 mg Q12H [facility]INA Administration Furosemide 20 mg 07/08/20 09:00 07/08/20 08:35 Furosemide 20 Mg/2 Ml Vial IVPUSH Not Given BID@0900,1800 [facility] Protocol Insulin Human Lispro 0 unit 06/30/20 11:30 07/08/20 11:56 Insulin Lispro 100 Unit/Ml 3 Ml Vial SUBCUT 2 unit QIDACHS CARINA Administration Protocol Metoprolol Tartrate 50 mg 07/02/20 18:15 07/08/20 08:21 Metoprolol Tartrate 50 Mg Tablet PO Not Given BID [facility] Protocol Morphine Sulfate 3 mg 07/02/20 15:57 07/06/20 18:01 Morphine Sulfate 4 Mg/Ml Cartridge IVPUSH 3 mg Q2H PRN Administration Pain, Severe (Pain Scale 7-10) Naloxone HCl 0.2 mg 07/02/20 15:57 Naloxone Hcl 0.4 Mg/Ml Vial IVPUSH Q2M PRN Excessive sedation or RR < 8 Ondansetron HCl 4 mg 07/02/20 12:00 Ondansetron Hcl 4 Mg/2 Ml Vial IVPUSH ONCE PRN Nausea and Vomiting Oxycodone HCl 10 mg 07/06/20 07:23 07/08/20 00:38 Oxycodone Hcl Immed Release 5 Mg Tablet PO 10 mg Q6H PRN Administration Pain, Moderate (Pain Scale 4-6 Sodium Chloride 3 ml 06/30/20 08:00 07/08/20 08:57 0.9 % Sodium Chloride Flush 3 Ml Syringe IVFLUSH 3 ml QSAZFT [facility] Administration Sodium Chloride 3 ml 07/02/20 16:00 07/08/20 08:57 0.9 % Sodium Chloride Flush 3 Ml Syringe IVFLUSH 3 ml QSHIFT [facility] Administration Labs CBC & Chem 7: 07/08/20 05:41 07/08/20 05:41 Microbiology Microbiology Results: Microbiology 06/29/20 20:24 Blood - Venous Blood Culture - Final No growth after 5 days. 06/29/20 19:46 Blood - Venous Blood Culture - Final No growth after 5 days. Assessment and Plan (1) Medication induced coagulopathy: Status: Deleted (2) Leukocytosis: Status: Acute (3) Closed fracture of left hip: Status: Acute (4) Hypotension: Status: Acute (5) Chronic respiratory failure with hypoxia: Status: Acute (6) Pancreatic carcinoma metastatic to liver: Status: Acute (7) Acute on chronic blood loss anemia: Status: Acute Assessment and Plan: A 55 years old lady with PMH of endometrial cancer post hysterectomy, metastatic pancreatic cancer on chemo, diabetes, DVT on Eliquis who presents to the hospital for increase left hip pain. Leukocytosis Seems to be chronic looking back at her [facility] hospital visits recently No clear source of infection at this point, patient feels much better overall CXR negative for any new infiltrates Continue to monitor any signs of infection Will hold antibiotics Follow CBC Acute on chronic blood loss anemia Hemoglobin stable around 9.4 after 1 unit transfusion Hematology input appreciated, change her anticoagulation to full-dose Lovenox if platelet remains above 70 Follow H&H Fluid overload Improving +1 edema in her lower extremities Secondary to IV fluid and hypoalbuminemia Hold IV Lasix for hypotension Monitor intake and output water restriction to 1200 cc DVT/Pulmonary embolism PE Noted on CTA done in ED Patient has been treated for LLE DVT with Eliquis, to discontinue Continue full-dose Lovenox Left hip close fractures secondary to pathological fractures Orthopedic team input appreciated, surgery went well Monitor H&H PT eval Thrombocytopenia Platelets improved to 73 S\P 1 unit transfusion Secondary to recent chemotherapy Monitor H&H Follow LDH and liver enzymes To follow with her oncologist Dr Elizabeth aftr discharge Hypotension Seems to be chronic looking add visits to [facility] Hold metoprolol l for now Monitor blood pressure Continue gentle hydration Medication induced coagulopathy INR 3.2 secondary to Eliquis , liver disease Hold Eliquis for now Monitor PT INR DVT PPX full dose Lovenox
[2020-07-08 16:16] LABS: Glucose, Whole Blood 140 mg/dL (60-115)
[2020-07-08] MEDS: Acetaminophen 325 MG TABLET 650 MG PO (17:19)
[2020-07-08 19:43] LABS: Glucose, Whole Blood 144 mg/dL (60-115)
[2020-07-08] MEDS: Atorvastatin Calcium 20 MG TABLET PO (21:52)
[2020-07-08] MEDS: ondansetron HCL 4 MG/2 ML VIAL IVPUSH (21:55)
[2020-07-09] VITALS (7 sets, daily range): BP systolic 90–101; BP diastolic 45–68; PULSE 99–106; RESP 18–20; TEMP 36.4–36.6; O2SAT 93–98
[2020-07-09] MEDS: Magnesium Hydrox/Alum Hydrox 30 ML ORAL.SUSP PO (02:04)
[2020-07-09] MEDS: oxyCODONE HCl Immed Release 5 MG TABLET 10 MG PO (02:06)
[2020-07-09 07:11] LABS: Anion Gap 16 (12-20); Blood Urea Nitrogen 14 mg/dL (9-16); Calcium 7.6 mg/dL (8.4-10.2); Carbon Dioxide 29 mmol/L (22-29); Chloride 88 mmol/L (96-108); Creatinine Clr Calc Pharmacy 137.6; Estimated Glomerular Filt Rate > 60; Glucose Random 100 mg/dL (60-115); Potassium 3.3 mmol/l (3.3-5.1); Sodium 130 mmol/L (135-145)
[2020-07-09 07:13] LABS: Hematocrit 26.3 % (37-47); Hemoglobin 8.6 g/dl (12.0-16.0); Mean Corpuscular HGB Conc 32.7 g/dl (31.0-35.0); Mean Corpuscular Hemoglobin 27.7 pg (27.0-33.0); Mean Corpuscular Volume 84.8 fL (80-98); NRBC Pct Auto 0.5 /100WBC (0.0-0.2); Platelet Count 222 X10*3/uL (160-400); Red Cell Distribution Width 26.6 % (11.0-16.0)
[2020-07-09 07:39] LABS: White Blood Count 30.4 X10*3/uL (4.8-10.8)
[2020-07-09 07:57] LABS: Glucose, Whole Blood 133 mg/dL (60-115)
[2020-07-09] MEDS: Enoxaparin Sodium 100 MG/ML SYRINGE 90 MG SUBCUT (08:36)
[2020-07-09] MEDS: 0.9 % Sodium Chloride Flush 3 ML SYRINGE IVFLUSH ×2 (08:37→08:38)
--- NOTE | 2020-07-09 09:15 | P.PNOP_ITS ---
Subjective Subjective Date of Service: 07/09/20 Principal diagnosis: POD 7 s/p Lt hip IMN Interval history: No overnight events, has some episodes on acid reflux which is now resolved Progress with Pt is slow based on her willingness to participate. Physical Exam Vital Signs: Vital Signs: Last Vital Signs Temp 97.6 F 07/09/20 07:57 Pulse 102 H 07/09/20 07:57 Resp 18 07/09/20 07:57 BP 96/45 L 07/09/20 07:57 Pulse Ox 97 07/09/20 07:57 Body Mass Index 39.5 Extrem: Other: left hip incision clean dry and intact. no erythema, mild edema sensation intact Progress Note: A&P Assessment and plan (1) Closed fracture of left hip: Status: Acute Assessment and Plan: Continue pain mgmnt cont dvt ppx PT/OT for left hip Dispo planning-Pending PT eval, pain mgmnt Fall Risk Details Current Medications: Current Medications Generic Name Dose Route Start Last Admin Trade Name Freq PRN Reason Stop Dose Admin Acetaminophen 650 mg 06/30/20 01:22 07/08/20 17:19 Acetaminophen 325 Mg Tablet PO 650 mg Q6H PRN Administration Pain, Mild (Pain Scale 1-3) Al Hydroxide/Mg Hydroxide 30 ml 07/09/20 01:41 07/09/20 02:04 Magnesium Hydrox/Alum Hydrox 30 Ml Oral.Susp PO 30 ml Q6H PRN Administration Dyspepsia, heartburn Atorvastatin Calcium 20 mg 06/30/20 21:00 07/08/20 21:52 Atorvastatin Calcium 20 Mg Tablet PO 20 mg BEDTIME CARINA Administration Enoxaparin Sodium 90 mg 07/07/20 09:00 07/09/20 08:36 Enoxaparin Sodium 100 Mg/Ml Syringe SUBCUT 90 mg Q12H [facility] Administration Furosemide 20 mg 07/08/20 09:00 07/08/20 17:05 Furosemide 20 Mg/2 Ml Vial IVPUSH Not Given BID@0900,1800 [facility] Protocol Insulin Human Lispro 0 unit 06/30/20 11:30 07/09/20 08:28 Insulin Lispro 100 Unit/Ml 3 Ml Vial SUBCUT Not Given QIDACHS [facility] Protocol Metoprolol Tartrate 50 mg 07/02/20 18:15 07/09/20 09:01 Metoprolol Tartrate 50 Mg Tablet PO Not Given BID [facility] Protocol Morphine Sulfate 3 mg 07/02/20 15:57 07/06/20 18:01 Morphine Sulfate 4 Mg/Ml Cartridge IVPUSH 3 mg Q2H PRN Administration Pain, Severe (Pain Scale 7-10) Naloxone HCl 0.2 mg 07/02/20 15:57 Naloxone Hcl 0.4 Mg/Ml Vial IVPUSH Q2M PRN Excessive sedation or RR < 8 Ondansetron HCl 4 mg 07/02/20 12:00 07/08/20 21:55 Ondansetron Hcl 4 Mg/2 Ml Vial IVPUSH 4 mg ONCE PRN Administration Nausea and Vomiting Oxycodone HCl 10 mg 07/06/20 07:23 07/09/20 02:06 Oxycodone Hcl Immed Release 5 Mg Tablet PO 10 mg Q6H PRN Administration Pain, Moderate (Pain Scale 4-6 Sodium Chloride 3 ml 06/30/20 08:00 07/09/20 08:37 0.9 % Sodium Chloride Flush 3 Ml [facility] Administration Sodium Chloride 3 ml 07/02/20 16:00 07/09/20 08:38 0.9 % Sodium Chloride Flush 3 Ml Syringe IVFLUSH 3 ml QSPAFT [facility] Administration Time Spent With Patient Time: Total time spent is greater than 50% in coordination of care (as documented) at patient's floor/unit and/or counseling patient: Time with patient: less than 15 minutes
--- NOTE | 2020-07-09 10:40 | PC.NURSE ---
0800 Blood Pressure 96/47. HR 102. Dr. Macdonald aware. Metoprolol held. No new orders. Will continue to monitor.
[2020-07-09 11:55] LABS: Glucose, Whole Blood 146 mg/dL (60-115)
[2020-07-09 12:00] LABS: Glucose Urine UA NEG (NEG); Leukocyte Esterase Urine NEG (NEG); Nitrite Urine NEG (NEG); PH 5.5 (5.0-8.0); Specific Gravity - Urine 1.025 (1.005-1.025); Urine Blood NEG (NEG); Urine Ketones 5 MG/DL (NEG); Urine Protein NEG (NEG-TRACE)
[2020-07-09 12:01] LABS: Appearance Urine HAZY; Color Urine YELLOW
--- NOTE | 2020-07-09 13:34 | PM.DS ---
DS: Providers Provider Date of Service: 07/09/20 Date of admission: 06/30/20 01:22 Primary care physician: Mahsa James NP Consults: 06/30/20 01:22 Consult to Orthopedics Routine Consulting Provider: [facility] Reason for consultation: Left hip pathological fracture 07/04/20 08:37 Consult to Hematology / Oncology Routine Consulting Provider: Leeann Alvares Reason for consultation: Hx DVT on Eliquis, Elevated INR, Thrombocytopenia for your kind eval. Has provider been notified: No DS: Diagnosis Discharge Diagnosis (1) Closed fracture of left hip: Status: Acute (2) Acute on chronic blood loss anemia: Status: Acute (3) Pulmonary embolism: Status: Acute (4) Chest pain: Status: Acute (5) Leukocytosis: Status: Acute (6) Hypotension: Status: Acute (7) Chronic respiratory failure with hypoxia: Status: Acute (8) Pancreatic carcinoma metastatic to liver: Status: Acute (9) Thrombocytopenia: Status: Acute DS: Medications Discharge Medications Home Medications: Home Medications Medication Instructions Recorded Confirmed Januvia 100 mg PO DAILY 06/29/20 06/29/20 acetaminophen 650 mg Q4-5H PRN 06/29/20 06/29/20 albuterol sulfate [ProAir HFA] INHALATION PRN 06/29/20 atorvastatin 20 mg PO BEDTIME 06/29/20 06/29/20 metformin 1,000 mg PO BID 06/29/20 06/29/20 metoprolol tartrate 50 mg PO BID 06/29/20 06/29/20 morphine 15 mg PO Q12H 06/29/20 06/30/20 morphine 15 mg PO Q4H PRN 06/29/20 06/30/20 multivitamin 1 tab PO DAILY 06/29/20 06/30/20 Previous Rx's Medication Instructions Recorded enoxaparin 90 mg SUBCUT Q12H 30 Days #54 ml 07/09/20 furosemide 20 mg PO QAM #30 tab 07/09/20 morphine 30 mg PO DAILY@1700 #0 tab 07/09/20 oxycodone 10 mg PO Q6H PRN #20 tab 07/09/20 DS: Summary Hospital Course Hospital Course: Admission note HPI A 55 years old lady with PMH of endometrial cancer post hysterectomy, metastatic pancreatic cancer on chemo, diabetes, DVT on Eliquis who presents to the hospital for increase left hip pain. The patient reported she was diagnosed with pancreatic cancer around October 2019. For the last 3-4 months she started noticing left-sided hip pain. She was evaluated for that at [facility] last month with no clear reason identified. Today she went to use her bathroom and she was unable to get if the toilet as a result of that requiring help. EMS called and brought the patient to the emergency. She reports starting chemotherapy cycle yesterday. She also reports placement of MediPort yesterday. She is not sure if that was used or not but she reports chest pain a earlier today around that area which is resolved at time of presentation. Mainly right-sided and burning in nature. Not associated with any nausea, vomiting, sweating or palpitation. In the emergency, an x-ray for hip showed intertrochanteric fracture of left femur which is likely pathological in nature secondary to metastasis. She was noted to have low blood pressure readings in the emergency. Found to have low blood pressure readings also at [facility] during last admission. INR found to be around 3 as a result of Eliquis usage. Admitted for further evaluation and treatment. Hospital course The patient was admitted to the hospital for increased left hip pain. Found to have pathological fracture in the left hip. Evaluated by Orthopedic team who did arthroplasty of the left hip. She started physical therapy but was all over weak as a result of recent chemotherapy administration. Plan to discharge to rehab for physical therapy. She was noted to have thrombocytopenia with platelets running as low as 20s with active bleeding from the wound post surgery and hematuria resulting in acute on chronic blood loss anemia requiring 1 unit blood transfusion with good response. She was evaluated by Dr. Alvares from Oncology who also did the low platelets a result of recent chemo. Anticoagulation was held during that. Until her platelets improved back to 70. Flatus at the day of discharge above 200. She has a history of left leg DVT which she was taking Eliquis for it. At presentation in the ER she had a CTA showing PE. After discussing with hematology decision was made to change her anticoagulation to Lovenox given her history of active cancer. To be discharged on Lovenox 90 mg twice daily indefinitely. To follow-up with her oncologist as outpatient. She was noted to have significant edema as a result of malnutrition and liver involvement metastasis. She received IV Lasix with good response as edema improved significantly. To continue with oral Lasix. To check her weight regularly. Lasix dose might need to be increased. She was noted to have leukocytosis since the day of admission. Looking back at her [facility] visits she always has had leukocytosis. She reports receiving a medication to increase her white blood cells when she received the chemo last time which might be the explanation why her WBCs around 30,000 with no source of infection at all and the patient is doing much better during the hospital stay with no reported fever or chills. CXR and urine were negative for any acute findings. Time Spent with Patient Time attestation: Total time spent providing and/or coordinating discharge services: Discharge coordination time: Greater than 30 minutes Physical Exam Vital Signs: Vital Signs: Last Vital Signs Temp 97.6 F 07/09/20 12:00 Pulse 99 07/09/20 12:00 Resp 18 07/09/20 12:00 BP 90/68 07/09/20 12:00 Pulse Ox 93 07/09/20 12:00 Body Mass Index 39.5 Constitutional : Alert, oriented, not in distress Neck : Normal inspection, Supple Cardiovascular : RRR, S1 S2, trace bilateral lower extremity edema Respiratory :decreased bilateral air entry, no crackles, wheezes or rhonchi Gastrointestinal: soft, lax, Normal bowel sounds, Non tender Skin : Warm/Dry, No rash Neurological : Alert & oriented x3, No focal deficit Muscular, left lower extremity externally surgical site clean,, covered with dressing DS: Data Data Completed and Pending Labs on day of discharge: Laboratory Tests 06/29/20 06/29/20 06/29/20 17:37 17:37 17:37 WBC 26.9 H RBC 3.95 L Hgb 9.3 L Hct 30.3 L MCV 76.7 L MCH 23.5 L MCHC 30.7 L RDW 24.6 H Plt Count 146 L MPV Not Reportable Immature Gran % (Auto) 1.4 H Neut % (Auto) 90.7 H Lymph % (Auto) 3.2 L [place] % (Auto) 4.6 Eos % (Auto) 0.0 Baso % (Auto) 0.1 Lymph # (Auto) 0.9 L [place] # (Auto) 1.2 Eos # (Auto) 0.0 Baso # (Auto) 0.0 Abs Immat Gran (auto) 0.39 H Absolute Neuts (auto) 24.4 H Absolute Nucleated RBC 0.030 H Nucleated RBC % (auto) 0.1 Smear Tech's Comments VERIFIED Smear Path Review PT 35.2 H INR 2.9 H APTT 26.8 PTT (Heparin Protocol) Fibrinogen D-Dimer 3723 Sodium 133 L Potassium 4.2 Chloride 92 L Carbon Dioxide 32 H Anion Gap 13 BUN 22 H Creatinine 0.67 Estim Creat Clear Calc 100.0 Estimated GFR > 60 POC Glucose Random Glucose 193 H Fasting Glucose Lactic Acid Lactic Acid Fup @ 2Hr Lactic Acid Fup @ 4Hr Calcium 8.2 L Iron TIBC % Saturation Unsat Iron Binding Ferritin Total Bilirubin 1.4 H Direct Bilirubin 1.1 H AST 94 H ALT 33 H Alkaline Phosphatase 718 H Lactate Dehydrogenase Troponin I High Sens B-Natriuretic Peptide Total Protein 5.3 L Albumin 2.5 L Lipase 7 L Urine Color Urine Appearance Urine pH Ur Specific [place] Urine Protein Urine Glucose (UA) Urine Ketones Urine Blood Urine Nitrite Ur Leukocyte Esterase Urine RBC Urine WBC Ur Squamous Epith Cells Urine Bacteria COVID-19 (MARCELO) COVID-19 Clin Com Blood Type Antibody Screen Crossmatch 06/29/20 06/29/20 06/29/20 17:37 19:46 21:59 WBC RBC Hgb Hct MCV MCH MCHC RDW Plt Count MPV Immature Gran % (Auto) Neut % (Auto) Lymph % (Auto) [place] % (Auto) Eos % (Auto) Baso % (Auto) Lymph # (Auto) [place] # (Auto) Eos # (Auto) Baso # (Auto) Abs Immat Gran (auto) Absolute Neuts (auto) Absolute Nucleated RBC Nucleated RBC % (auto) Smear Tech's Comments Smear Path Review PT INR APTT PTT (Heparin Protocol) Fibrinogen D-Dimer Sodium Potassium Chloride Carbon Dioxide Anion Gap BUN Creatinine Estim Creat Clear Calc Estimated GFR POC Glucose Random Glucose Fasting Glucose Lactic Acid 2.6 H* Lactic Acid Fup @ 2Hr Lactic Acid Fup @ 4Hr Calcium Iron TIBC % Saturation Unsat Iron Binding Ferritin Total Bilirubin Direct Bilirubin AST ALT Alkaline Phosphatase Lactate Dehydrogenase Troponin I High Sens 11.2 B-Natriuretic Peptide 306 H Total Protein Albumin Lipase Urine Color Urine Appearance Urine pH Ur Specific [place] Urine Protein Urine Glucose (UA) Urine Ketones Urine Blood Urine Nitrite Ur Leukocyte Esterase Urine RBC Urine WBC Ur Squamous Epith Cells Urine Bacteria COVID-19 (MARCELO) Negative COVID-19 Clin Com See Note Blood Type Antibody Screen Crossmatch 06/29/20 06/29/20 06/29/20 21:59 22:26 22:27 WBC RBC Hgb Hct MCV MCH MCHC RDW Plt Count MPV Immature Gran % (Auto) Neut % (Auto) Lymph % (Auto) [place] % (Auto) Eos % (Auto) Baso % (Auto) Lymph # (Auto) [place] # (Auto) Eos # (Auto) Baso # (Auto) Abs Immat Gran (auto) Absolute Neuts (auto) Absolute Nucleated RBC Nucleated RBC % (auto) Smear Tech's Comments Smear Path Review PT INR APTT PTT (Heparin Protocol) Fibrinogen D-Dimer Sodium Potassium Chloride Carbon Dioxide Anion Gap BUN Creatinine Estim Creat Clear Calc Estimated GFR POC Glucose Random Glucose Fasting Glucose Lactic Acid Lactic Acid Fup @ 2Hr 2.5 H* Lactic Acid Fup @ 4Hr Calcium Iron TIBC % Saturation Unsat Iron Binding Ferritin Total Bilirubin Direct Bilirubin AST ALT Alkaline Phosphatase Lactate Dehydrogenase Troponin I High Sens B-Natriuretic Peptide Total Protein Albumin Lipase Urine Color YELLOW Urine Appearance CLEAR Urine pH 5.5 Ur Specific [place] 1.020 Urine Protein NEG Urine Glucose (UA) NEG Urine Ketones NEG Urine Blood 1+ H Urine Nitrite NEG Ur Leukocyte Esterase NEG Urine RBC 0-2 Urine WBC 0 Ur Squamous Epith Cells TRACE Urine Bacteria NONE COVID-19 (MARCELO) COVID-19 Clin Com Blood Type O Negative Antibody Screen NEGATIVE Crossmatch See Detail 06/30/20 06/30/20 06/30/20 01:11 04:42 09:34 WBC RBC Hgb 8.4 L Hct 26.7 L MCV MCH MCHC RDW Plt Count MPV Immature Gran % (Auto) Neut % (Auto) Lymph % (Auto) [place] % (Auto) Eos % (Auto) Baso % (Auto) Lymph # (Auto) [place] # (Auto) Eos # (Auto) Baso # (Auto) Abs Immat Gran (auto) Absolute Neuts (auto) Absolute Nucleated RBC Nucleated RBC % (auto) Smear Tech's Comments Smear Path Review PT INR APTT PTT (Heparin Protocol) Fibrinogen D-Dimer Sodium Potassium Chloride Carbon Dioxide Anion Gap BUN Creatinine Estim Creat Clear Calc Estimated GFR POC Glucose 168 H Random Glucose Fasting Glucose Lactic Acid Lactic Acid Fup @ 2Hr Lactic Acid Fup @ 4Hr 1.8 Calcium Iron TIBC % Saturation Unsat Iron Binding Ferritin Total Bilirubin Direct Bilirubin AST ALT Alkaline Phosphatase Lactate Dehydrogenase Troponin I High Sens B-Natriuretic Peptide Total Protein Albumin Lipase Urine Color Urine Appearance Urine pH Ur Specific [place] Urine Protein Urine Glucose (UA) Urine Ketones Urine Blood Urine Nitrite Ur Leukocyte Esterase Urine RBC Urine WBC Ur Squamous Epith Cells Urine Bacteria COVID-19 (MARCELO) COVID-19 [facility] Blood Type Antibody Screen Crossmatch 06/30/20 06/30/20 06/30/20 12:25 12:25 21:27 WBC RBC Hgb Hct MCV MCH MCHC RDW Plt Count MPV Immature Gran % (Auto) Neut % (Auto) Lymph % (Auto) [place] % (Auto) Eos % (Auto) Baso % (Auto) Lymph # (Auto) [place] # (Auto) Eos # (Auto) Baso # (Auto) Abs Immat Gran (auto) Absolute Neuts (auto) Absolute Nucleated RBC Nucleated RBC % (auto) Smear Tech's Comments Smear Path Review PT 38.8 H INR 3.2 H APTT PTT (Heparin Protocol) Fibrinogen D-Dimer Sodium 134 L Potassium 4.0 Chloride 97 Carbon Dioxide 27 Anion Gap 14 BUN 19 H Creatinine 0.53 Estim Creat Clear Calc 123.3 Estimated GFR > 60 POC Glucose 174 H Random Glucose 179 H Fasting Glucose Lactic Acid Lactic Acid Fup @ 2Hr Lactic Acid Fup @ 4Hr Calcium 7.5 L D Iron TIBC % Saturation Unsat Iron Binding Ferritin Total Bilirubin Direct Bilirubin AST ALT Alkaline Phosphatase Lactate Dehydrogenase Troponin I High Sens B-Natriuretic Peptide Total Protein Albumin Lipase Urine Color Urine Appearance Urine pH Ur Specific [place] Urine Protein Urine Glucose (UA) Urine Ketones Urine Blood Urine Nitrite Ur Leukocyte Esterase Urine RBC Urine WBC Ur Squamous Epith Cells Urine Bacteria COVID-19 (MARCELO) COVID-19 [facility] Com Blood Type Antibody Screen Crossmatch 07/01/20 07/01/20 07/01/20 08:31 12:55 16:25 WBC RBC Hgb Hct MCV MCH MCHC RDW Plt Count MPV Immature Gran % (Auto) Neut % (Auto) Lymph % (Auto) [place] % (Auto) Eos % (Auto) Baso % (Auto) Lymph # (Auto) [place] # (Auto) Eos # (Auto) Baso # (Auto) Abs Immat Gran (auto) Absolute Neuts (auto) Absolute Nucleated RBC Nucleated RBC % (auto) Smear Tech's Comments Smear Path Review PT INR APTT PTT (Heparin Protocol) Fibrinogen D-Dimer Sodium Potassium Chloride Carbon Dioxide Anion Gap BUN Creatinine Estim Creat Clear Calc Estimated GFR POC Glucose 172 H 189 H 211 H Random Glucose Fasting Glucose Lactic Acid Lactic Acid Fup @ 2Hr Lactic Acid Fup @ 4Hr Calcium Iron TIBC % Saturation Unsat Iron Binding Ferritin Total Bilirubin Direct Bilirubin AST ALT Alkaline Phosphatase Lactate Dehydrogenase Troponin I High Sens B-Natriuretic Peptide Total Protein Albumin Lipase Urine Color Urine Appearance Urine pH Ur Specific [place] Urine Protein Urine Glucose (UA) Urine Ketones Urine Blood Urine Nitrite Ur Leukocyte Esterase Urine RBC Urine WBC Ur Squamous Epith Cells Urine Bacteria COVID-19 (MARCELO) COVID-19 Clin Com Blood Type Antibody Screen Crossmatch 07/01/20 07/01/20 07/01/20 18:53 21:02 21:47 WBC 23.4 H RBC 3.52 L Hgb 8.6 L Hct 27.5 L MCV 78.1 L MCH 24.4 L MCHC 31.3 RDW 24.2 H Plt Count 137 L MPV Not Reportable Immature Gran % (Auto) 2.2 H Neut % (Auto) 84.4 H Lymph % (Auto) 7.0 L [place] % (Auto) 0.7 L Eos % (Auto) 5.5 H Baso % (Auto) 0.2 Lymph # (Auto) 1.6 [place] # (Auto) 0.2 Eos # (Auto) 1.3 H Baso # (Auto) 0.1 Abs Immat Gran (auto) 0.51 H Absolute Neuts (auto) 19.8 H Absolute Nucleated RBC 0.000 Nucleated RBC % (auto) 0.0 Smear Tech's Comments VERIFIED Smear Path Review PT INR APTT PTT (Heparin Protocol) 65.1 Fibrinogen D-Dimer Sodium Potassium Chloride Carbon Dioxide Anion Gap BUN Creatinine Estim Creat Clear Calc Estimated GFR POC Glucose 156 H Random Glucose Fasting Glucose Lactic Acid Lactic Acid Fup @ 2Hr Lactic Acid Fup @ 4Hr Calcium Iron TIBC % Saturation Unsat Iron Binding Ferritin Total Bilirubin Direct Bilirubin AST ALT Alkaline Phosphatase Lactate Dehydrogenase Troponin I High Sens B-Natriuretic Peptide Total Protein Albumin Lipase Urine Color Urine Appearance Urine pH Ur Specific [place] Urine Protein Urine Glucose (UA) Urine Ketones Urine Blood Urine Nitrite Ur Leukocyte Esterase Urine RBC Urine WBC Ur Squamous Epith Cells Urine Bacteria COVID-19 (MARCELO) COVID-19 Clin Com Blood Type Antibody Screen Crossmatch 07/01/20 07/02/20 07/02/20 21:48 00:47 07:17 WBC RBC Hgb Hct MCV MCH MCHC RDW Plt Count MPV Immature Gran % (Auto) Neut % (Auto) Lymph % (Auto) [place] % (Auto) Eos % (Auto) Baso % (Auto) Lymph # (Auto) [place] # (Auto) Eos # (Auto) Baso # (Auto) Abs Immat Gran (auto) Absolute Neuts (auto) Absolute Nucleated RBC Nucleated RBC % (auto) Smear Tech's Comments Smear Path Review PT INR APTT PTT (Heparin Protocol) 82.7 H D Fibrinogen D-Dimer Sodium 132 L Potassium 3.7 Chloride 93 L Carbon Dioxide 29 Anion Gap 14 BUN 16 Creatinine 0.50 Estim Creat Clear Calc 132.1 Estimated GFR > 60 POC Glucose 138 H Random Glucose Fasting Glucose 158 H Lactic Acid Lactic Acid Fup @ 2Hr Lactic Acid Fup @ 4Hr Calcium 7.7 L Iron TIBC % Saturation Unsat Iron Binding Ferritin Total Bilirubin Direct Bilirubin AST ALT Alkaline Phosphatase Lactate Dehydrogenase Troponin I High Sens B-Natriuretic Peptide Total Protein Albumin Lipase Urine Color Urine Appearance Urine pH Ur Specific [place] Urine Protein Urine Glucose (UA) Urine Ketones Urine Blood Urine Nitrite Ur Leukocyte Esterase Urine RBC Urine WBC Ur Squamous Epith Cells Urine Bacteria COVID-19 (MARCELO) COVID-19 [email or web address] Blood Type Antibody Screen Crossmatch 07/02/20 07/02/20 07/02/20 07:29 07:29 07:29 WBC 17.6 H RBC 3.48 L Hgb 8.4 L Hct 27.0 L MCV 77.6 L MCH 24.1 L MCHC 31.1 RDW 24.2 H Plt Count 126 L MPV 11.7 Immature Gran % (Auto) 1.9 H Neut % (Auto) 83.5 H Lymph % (Auto) 8.0 L [place] % (Auto) 1.1 L Eos % (Auto) 5.3 H Baso % (Auto) 0.2 Lymph # (Auto) 1.4 [place] # (Auto) 0.2 Eos # (Auto) 0.9 H Baso # (Auto) 0.0 Abs Immat Gran (auto) 0.34 H Absolute Neuts (auto) 14.7 H Absolute Nucleated RBC 0.020 H Nucleated RBC % (auto) 0.1 Smear Tech's Comments Smear Path Review PT INR APTT PTT (Heparin Protocol) 70.3 Fibrinogen D-Dimer Sodium 132 L Potassium 3.9 Chloride 94 L Carbon Dioxide 30 H Anion Gap 12 BUN 15 Creatinine 0.46 L Estim Creat Clear Calc 143.7 Estimated GFR > 60 POC Glucose Random Glucose Fasting Glucose 141 H Lactic Acid Lactic Acid Fup @ 2Hr Lactic Acid Fup @ 4Hr Calcium 7.7 L Iron TIBC % Saturation Unsat Iron Binding Ferritin Total Bilirubin Direct Bilirubin AST ALT Alkaline Phosphatase Lactate Dehydrogenase Troponin I High Sens B-Natriuretic Peptide Total Protein Albumin Lipase Urine Color Urine Appearance Urine pH Ur Specific [place] Urine Protein Urine Glucose (UA) Urine Ketones Urine Blood Urine Nitrite Ur Leukocyte Esterase Urine RBC Urine WBC Ur Squamous Epith Cells Urine Bacteria COVID-19 (MARCELO) [employer] Blood Type Antibody Screen Crossmatch 07/02/20 07/02/20 07/02/20 11:22 16:07 17:47 WBC 14.1 H RBC 3.49 L Hgb 9.0 L Hct 28.4 L MCV 81.4 MCH 25.8 L MCHC 31.7 RDW 25.6 H Plt Count 63 L D MPV Not Reportable Immature Gran % (Auto) Neut % (Auto) Lymph % (Auto) [place] % (Auto) Eos % (Auto) Baso % (Auto) Lymph # (Auto) [place] # (Auto) Eos # (Auto) Baso # (Auto) Abs Immat Gran (auto) Absolute Neuts (auto) Absolute Nucleated RBC 0.150 H Nucleated RBC % (auto) 1.1 H Smear Tech's Comments Smear Path Review PT INR APTT PTT (Heparin Protocol) Fibrinogen D-Dimer Sodium Potassium Chloride Carbon Dioxide Anion Gap BUN Creatinine Estim Creat Clear Calc Estimated GFR POC Glucose 144 H 190 H Random Glucose Fasting Glucose Lactic Acid Lactic Acid Fup @ 2Hr Lactic Acid Fup @ 4Hr Calcium Iron TIBC % Saturation Unsat Iron Binding Ferritin Total Bilirubin Direct Bilirubin AST ALT Alkaline Phosphatase Lactate Dehydrogenase Troponin I High Sens B-Natriuretic Peptide Total Protein Albumin Lipase Urine Color Urine Appearance Urine pH Ur Specific [place] Urine Protein Urine Glucose (UA) Urine Ketones Urine Blood Urine Nitrite Ur Leukocyte Esterase Urine RBC Urine WBC Ur Squamous Epith Cells Urine Bacteria COVID-19 (MARCELO) COVID-19 [email or web address] Blood Type Antibody Screen Crossmatch 01/11/21 01/12/21 01/12/21 19:55 05:27 05:27 WBC 13.6 H RBC 3.34 L Hgb 8.7 L Hct 26.7 L MCV 79.9 L MCH 26.0 L MCHC 32.6 RDW 25.6 H Plt Count 39 L D MPV Not Reportable Immature Gran % (Auto) Neut % (Auto) Lymph % (Auto) [place] % (Auto) Eos % (Auto) Baso % (Auto) Lymph # (Auto) [place] # (Auto) Eos # (Auto) Baso # (Auto) Abs Immat Gran (auto) Absolute Neuts (auto) Absolute Nucleated RBC 0.270 H Nucleated RBC % (auto) 2.0 H Smear Tech's Comments Smear Path Review PT 34.2 H INR 2.8 H APTT PTT (Heparin Protocol) Fibrinogen D-Dimer Sodium Potassium Chloride Carbon Dioxide Anion Gap BUN Creatinine Estim Creat Clear Calc Estimated GFR POC Glucose 217 H Random Glucose Fasting Glucose Lactic Acid Lactic Acid Fup @ 2Hr Lactic Acid Fup @ 4Hr Calcium Iron TIBC % Saturation Unsat Iron Binding Ferritin Total Bilirubin Direct Bilirubin AST ALT Alkaline Phosphatase Lactate Dehydrogenase Troponin I High Sens B-Natriuretic Peptide Total Protein Albumin Lipase Urine Color Urine Appearance Urine pH Ur Specific [place] Urine Protein Urine Glucose (UA) Urine Ketones Urine Blood Urine Nitrite Ur Leukocyte Esterase Urine RBC Urine WBC Ur Squamous Epith Cells Urine Bacteria COVID-19 (MARCELO) COVID-19 Clin Com Blood Type Antibody Screen Crossmatch 07/03/20 07/03/20 07/03/20 05:27 07:29 11:10 WBC RBC Hgb Hct MCV MCH MCHC RDW Plt Count MPV Immature Gran % (Auto) Neut % (Auto) Lymph % (Auto) [place] % (Auto) Eos % (Auto) Baso % (Auto) Lymph # (Auto) [place] # (Auto) Eos # (Auto) Baso # (Auto) Abs Immat Gran (auto) Absolute Neuts (auto) Absolute Nucleated RBC Nucleated RBC % (auto) Smear Tech's Comments Smear Path Review PT INR APTT PTT (Heparin Protocol) Fibrinogen D-Dimer Sodium 131 L Potassium 3.8 Chloride 93 L Carbon Dioxide 28 Anion Gap 14 BUN 18 H Creatinine 0.51 Estim Creat Clear Calc 129.5 Estimated GFR > 60 POC Glucose 141 H 189 H Random Glucose 143 H Fasting Glucose Lactic Acid Lactic Acid Fup @ 2Hr Lactic Acid Fup @ 4Hr Calcium 7.5 L Iron TIBC % Saturation Unsat Iron Binding Ferritin Total Bilirubin Direct Bilirubin AST ALT Alkaline Phosphatase Lactate Dehydrogenase Troponin I High Sens B-Natriuretic Peptide Total Protein Albumin Lipase Urine Color Urine Appearance Urine pH Ur Specific [place] Urine Protein Urine Glucose (UA) Urine Ketones Urine Blood Urine Nitrite Ur Leukocyte Esterase Urine RBC Urine WBC Ur Squamous Epith Cells Urine Bacteria COVID-19 (MARCELO) COVID-19 Clin Com Blood Type Antibody Screen Crossmatch 07/03/20 07/03/20 07/03/20 16:42 17:14 17:14 WBC 16.5 H RBC 3.29 L Hgb 8.6 L Hct 26.4 L MCV 80.2 MCH 26.1 L MCHC 32.6 RDW 25.5 H Plt Count 28 L D MPV Not Reportable Immature Gran % (Auto) Neut % (Auto) Lymph % (Auto) [place] % (Auto) Eos % (Auto) Baso % (Auto) Lymph # (Auto) [place] # (Auto) Eos # (Auto) Baso # (Auto) Abs Immat Gran (auto) Absolute Neuts (auto) Absolute Nucleated RBC 0.390 H Nucleated RBC % (auto) 2.4 H Smear Tech's Comments Smear Path Review PT INR APTT PTT (Heparin Protocol) Fibrinogen D-Dimer Sodium Potassium Chloride Carbon Dioxide Anion Gap BUN Creatinine Estim Creat Clear Calc Estimated GFR POC Glucose 186 H Random Glucose Fasting Glucose Lactic Acid Lactic Acid Fup @ 2Hr Lactic Acid Fup @ 4Hr Calcium Iron TIBC % Saturation Unsat Iron Binding Ferritin Total Bilirubin Direct Bilirubin AST ALT Alkaline Phosphatase Lactate Dehydrogenase Troponin I High Sens B-Natriuretic Peptide Total Protein Albumin Lipase Urine Color Urine Appearance Urine pH Ur Specific [place] Urine Protein Urine Glucose (UA) Urine Ketones Urine Blood Urine Nitrite Ur Leukocyte Esterase Urine RBC Urine WBC Ur Squamous Epith Cells Urine Bacteria COVID-19 (MARCELO) COVID-19 Clin Com Blood Type O Negative Antibody Screen NEGATIVE Crossmatch See Detail 07/03/20 07/04/20 07/04/20 20:31 05:56 05:56 WBC RBC Hgb Hct MCV MCH MCHC RDW Plt Count MPV Immature Gran % (Auto) Neut % (Auto) Lymph % (Auto) [place] % (Auto) Eos % (Auto) Baso % (Auto) Lymph # (Auto) [place] # (Auto) Eos # (Auto) Baso # (Auto) Abs Immat Gran (auto) Absolute Neuts (auto) Absolute Nucleated RBC Nucleated RBC % (auto) Smear Tech's Comments Smear Path Review PT 39.8 H INR 3.3 H APTT PTT (Heparin Protocol) Fibrinogen 445 D-Dimer Sodium 131 L Potassium 4.2 Chloride 93 L Carbon Dioxide 27 Anion Gap 15 BUN 14 Creatinine 0.49 L Estim Creat Clear Calc 134.8 Estimated GFR > 60 POC Glucose 159 H Random Glucose 144 H Fasting Glucose Lactic Acid Lactic Acid Fup @ 2Hr Lactic Acid Fup @ 4Hr Calcium 7.6 L Iron 34 TIBC 148 L % Saturation 23 Unsat Iron Binding 114 Ferritin 8064 H Total Bilirubin 1.7 H Direct Bilirubin 1.2 H AST 75 H ALT 31 Alkaline Phosphatase 489 H D Lactate Dehydrogenase 601 H Troponin I High Sens B-Natriuretic Peptide Total Protein 4.2 L D Albumin 1.9 L D Lipase Urine Color Urine Appearance Urine pH Ur Specific [place] Urine Protein Urine Glucose (UA) Urine Ketones Urine Blood Urine Nitrite Ur Leukocyte Esterase Urine RBC Urine WBC Ur Squamous Epith Cells Urine Bacteria COVID-19 (MARCELO) COVID-19 Clin Com Blood Type Antibody Screen Crossmatch 07/04/20 07/04/20 07/04/20 05:56 07:37 11:28 WBC 16.9 H RBC 3.00 L Hgb 7.8 L Hct 24.1 L MCV 80.3 MCH 26.0 L MCHC 32.4 RDW 25.5 H Plt Count 72 L D MPV 8.9 L Immature Gran % (Auto) Neut % (Auto) Lymph % (Auto) [place] % (Auto) Eos % (Auto) Baso % (Auto) Lymph # (Auto) [place] # (Auto) Eos # (Auto) Baso # (Auto) Abs Immat Gran (auto) Absolute Neuts (auto) Absolute Nucleated RBC 0.530 H Nucleated RBC % (auto) 3.1 H Smear Tech's Comments Smear Path Review SEE NOTE PT INR APTT PTT (Heparin Protocol) Fibrinogen D-Dimer Sodium Potassium Chloride Carbon Dioxide Anion Gap BUN Creatinine Estim Creat Clear Calc Estimated GFR POC Glucose 153 H 188 H Random Glucose Fasting Glucose Lactic Acid Lactic Acid Fup @ 2Hr Lactic Acid Fup @ 4Hr Calcium Iron TIBC % Saturation Unsat Iron Binding Ferritin Total Bilirubin Direct Bilirubin AST ALT Alkaline Phosphatase Lactate Dehydrogenase Troponin I High Sens B-Natriuretic Peptide Total Protein Albumin Lipase Urine Color Urine Appearance Urine pH Ur Specific [place] Urine Protein Urine Glucose (UA) Urine Ketones Urine Blood Urine Nitrite Ur Leukocyte Esterase Urine RBC Urine WBC Ur Squamous Epith Cells Urine Bacteria COVID-19 (MARCELO) COVID-19 Clin Com Blood Type Antibody Screen Crossmatch 07/04/20 07/04/20 07/05/20 16:39 20:17 05:24 WBC RBC Hgb Hct MCV MCH MCHC RDW Plt Count MPV Immature Gran % (Auto) Neut % (Auto) Lymph % (Auto) [place] % (Auto) Eos % (Auto) Baso % (Auto) Lymph # (Auto) [place] # (Auto) Eos # (Auto) Baso # (Auto) Abs Immat Gran (auto) Absolute Neuts (auto) Absolute Nucleated RBC Nucleated RBC % (auto) Smear Tech's Comments Smear Path Review PT 35.2 H INR 2.9 H APTT PTT (Heparin Protocol) Fibrinogen D-Dimer Sodium Potassium Chloride Carbon Dioxide Anion Gap BUN Creatinine Estim Creat Clear Calc Estimated GFR POC Glucose 171 H 141 H Random Glucose Fasting Glucose Lactic Acid Lactic Acid Fup @ 2Hr Lactic Acid Fup @ 4Hr Calcium Iron TIBC % Saturation Unsat Iron Binding Ferritin Total Bilirubin Direct Bilirubin AST ALT Alkaline Phosphatase Lactate Dehydrogenase Troponin I High Sens B-Natriuretic Peptide Total Protein Albumin Lipase Urine Color Urine Appearance Urine pH Ur Specific [place] Urine Protein Urine Glucose (UA) Urine Ketones Urine Blood Urine Nitrite Ur Leukocyte Esterase Urine RBC Urine WBC Ur Squamous Epith Cells Urine Bacteria COVID-19 (MARCELO) COVID-19 [facility] Com Blood Type Antibody Screen Crossmatch 07/05/20 07/05/20 07/05/20 05:24 05:24 07:46 WBC 23.4 H RBC 3.58 L Hgb 9.8 L D Hct 29.4 L D MCV 82.1 MCH 27.4 MCHC 33.3 RDW 24.4 H Plt Count 48 L D MPV Not Reportable Immature Gran % (Auto) Neut % (Auto) Lymph % (Auto) [place] % (Auto) Eos % (Auto) Baso % (Auto) Lymph # (Auto) [place] # (Auto) Eos # (Auto) Baso # (Auto) Abs Immat Gran (auto) Absolute Neuts (auto) Absolute Nucleated RBC 2.140 H Nucleated RBC % (auto) 9.1 H Smear Tech's Comments Smear Path Review PT INR APTT PTT (Heparin Protocol) Fibrinogen D-Dimer Sodium 130 L Potassium 4.3 Chloride 92 L Carbon Dioxide 29 Anion Gap 13 BUN 13 Creatinine 0.51 Estim Creat Clear Calc 129.5 Estimated GFR > 60 POC Glucose 151 H Random Glucose 126 H Fasting Glucose Lactic Acid Lactic Acid Fup @ 2Hr Lactic Acid Fup @ 4Hr Calcium 7.7 L Iron TIBC % Saturation Unsat Iron Binding Ferritin Total Bilirubin 1.7 H Direct Bilirubin 1.2 H AST 47 H ALT 23 Alkaline Phosphatase 564 H Lactate Dehydrogenase 633 H Troponin I High Sens B-Natriuretic Peptide Total Protein 4.5 L Albumin 1.9 L Lipase Urine Color Urine Appearance Urine pH Ur Specific [place] Urine Protein Urine Glucose (UA) Urine Ketones Urine Blood Urine Nitrite Ur Leukocyte Esterase Urine RBC Urine WBC Ur Squamous Epith Cells Urine Bacteria COVID-19 (MARCELO) COVID-19 [employer] Com Blood Type Antibody Screen Crossmatch 07/05/20 07/05/20 07/05/20 11:29 17:10 20:32 WBC RBC Hgb Hct MCV MCH MCHC RDW Plt Count MPV Immature Gran % (Auto) Neut % (Auto) Lymph % (Auto) [place] % (Auto) Eos % (Auto) Baso % (Auto) Lymph # (Auto) [place] # (Auto) Eos # (Auto) Baso # (Auto) Abs Immat Gran (auto) Absolute Neuts (auto) Absolute Nucleated RBC Nucleated RBC % (auto) Smear Tech's Comments Smear Path Review PT INR APTT PTT (Heparin Protocol) Fibrinogen D-Dimer Sodium Potassium Chloride Carbon Dioxide Anion Gap BUN Creatinine Estim Creat Clear Calc Estimated GFR POC Glucose 165 H 163 H 132 H Random Glucose Fasting Glucose Lactic Acid Lactic Acid Fup @ 2Hr Lactic Acid Fup @ 4Hr Calcium Iron TIBC % Saturation Unsat Iron Binding Ferritin Total Bilirubin Direct Bilirubin AST ALT Alkaline Phosphatase Lactate Dehydrogenase Troponin I High Sens B-Natriuretic Peptide Total Protein Albumin Lipase Urine Color Urine Appearance Urine pH Ur Specific [place] Urine Protein Urine Glucose (UA) Urine Ketones Urine Blood Urine Nitrite Ur Leukocyte Esterase Urine RBC Urine WBC Ur Squamous Epith Cells Urine Bacteria COVID-19 (MARCELO) COVID-19 [employer] Com Blood Type Antibody Screen Crossmatch 07/06/20 07/06/20 07/06/20 05:40 05:40 05:40 WBC 23.6 H RBC 3.57 L Hgb 9.8 L Hct 30.0 L MCV 84.0 MCH 27.5 MCHC 32.7 RDW 25.6 H Plt Count 50 L MPV Not Reportable Immature Gran % (Auto) Neut % (Auto) Lymph % (Auto) [place] % (Auto) Eos % (Auto) Baso % (Auto) Lymph # (Auto) [place] # (Auto) Eos # (Auto) Baso # (Auto) Abs Immat Gran (auto) Absolute Neuts (auto) Absolute Nucleated RBC 1.650 H Nucleated RBC % (auto) 7.0 H Smear Tech's Comments Smear Path Review PT 40.2 H INR 3.3 H APTT PTT (Heparin Protocol) Fibrinogen D-Dimer Sodium 130 L Potassium 3.9 Chloride 91 L Carbon Dioxide 29 Anion Gap 14 BUN 13 Creatinine 0.52 Estim Creat Clear Calc 127.1 Estimated GFR > 60 POC Glucose Random Glucose 116 H Fasting Glucose Lactic Acid Lactic Acid Fup @ 2Hr Lactic Acid Fup @ 4Hr Calcium 7.7 L Iron TIBC % Saturation Unsat Iron Binding Ferritin Total Bilirubin Direct Bilirubin AST ALT Alkaline Phosphatase Lactate Dehydrogenase Troponin I High Sens B-Natriuretic Peptide Total Protein Albumin Lipase Urine Color Urine Appearance Urine pH Ur Specific [place] Urine Protein Urine Glucose (UA) Urine Ketones Urine Blood Urine Nitrite Ur Leukocyte Esterase Urine RBC Urine WBC Ur Squamous Epith Cells Urine Bacteria COVID-19 (MARCELO) COVID-19 Clin Com Blood Type Antibody Screen Crossmatch 07/06/20 07/06/20 07/06/20 07:47 11:05 16:31 WBC RBC Hgb Hct MCV MCH MCHC RDW Plt Count MPV Immature Gran % (Auto) Neut % (Auto) Lymph % (Auto) [place] % (Auto) Eos % (Auto) Baso % (Auto) Lymph # (Auto) [place] # (Auto) Eos # (Auto) Baso # (Auto) Abs Immat Gran (auto) Absolute Neuts (auto) Absolute Nucleated RBC Nucleated RBC % (auto) Smear Tech's Comments Smear Path Review PT INR APTT PTT (Heparin Protocol) Fibrinogen D-Dimer Sodium Potassium Chloride Carbon Dioxide Anion Gap BUN Creatinine Estim Creat Clear Calc Estimated GFR POC Glucose 141 H 169 H 134 H Random Glucose Fasting Glucose Lactic Acid Lactic Acid Fup @ 2Hr Lactic Acid Fup @ 4Hr Calcium Iron TIBC % Saturation Unsat Iron Binding Ferritin Total Bilirubin Direct Bilirubin AST ALT Alkaline Phosphatase Lactate Dehydrogenase Troponin I High Sens B-Natriuretic Peptide Total Protein Albumin Lipase Urine Color Urine Appearance Urine pH Ur Specific [place] Urine Protein Urine Glucose (UA) Urine Ketones Urine Blood Urine Nitrite Ur Leukocyte Esterase Urine RBC Urine WBC Ur Squamous Epith Cells Urine Bacteria COVID-19 (MARCELO) COVID-19 [facility] Blood Type Antibody Screen Crossmatch 07/06/20 07/07/20 07/07/20 20:54 05:24 05:24 WBC 25.8 H RBC 3.38 L Hgb 9.4 L Hct 28.6 L MCV 84.6 MCH 27.8 MCHC 32.9 RDW 26.2 H Plt Count 73 L D MPV Not Reportable Immature Gran % (Auto) Neut % (Auto) Lymph % (Auto) [place] % (Auto) Eos % (Auto) Baso % (Auto) Lymph # (Auto) [place] # (Auto) Eos # (Auto) Baso # (Auto) Abs Immat Gran (auto) Absolute Neuts (auto) Absolute Nucleated RBC 0.550 H Nucleated RBC % (auto) 2.1 H Smear Tech's Comments Smear Path Review PT 38.6 H INR 3.2 H APTT PTT (Heparin Protocol) Fibrinogen D-Dimer Sodium Potassium Chloride Carbon Dioxide Anion Gap BUN Creatinine Estim Creat Clear Calc Estimated GFR POC Glucose 141 H Random Glucose Fasting Glucose Lactic Acid Lactic Acid Fup @ 2Hr Lactic Acid Fup @ 4Hr Calcium Iron TIBC % Saturation Unsat Iron Binding Ferritin Total Bilirubin Direct Bilirubin AST ALT Alkaline Phosphatase Lactate Dehydrogenase Troponin I High Sens B-Natriuretic Peptide Total Protein Albumin Lipase Urine Color Urine Appearance Urine pH Ur Specific [place] Urine Protein Urine Glucose (UA) Urine Ketones Urine Blood Urine Nitrite Ur Leukocyte Esterase Urine RBC Urine WBC Ur Squamous Epith Cells Urine Bacteria COVID-19 (MARCELO) COVID-19 [facility] Blood Type Antibody Screen Crossmatch 07/07/20 07/07/20 07/07/20 05:24 08:23 11:23 WBC RBC Hgb Hct MCV MCH MCHC RDW Plt Count MPV Immature Gran % (Auto) Neut % (Auto) Lymph % (Auto) [place] % (Auto) Eos % (Auto) Baso % (Auto) Lymph # (Auto) [place] # (Auto) Eos # (Auto) Baso # (Auto) Abs Immat Gran (auto) Absolute Neuts (auto) Absolute Nucleated RBC Nucleated RBC % (auto) Smear Tech's Comments Smear Path Review PT INR APTT PTT (Heparin Protocol) Fibrinogen D-Dimer Sodium 130 L Potassium 3.5 Chloride 90 L Carbon Dioxide 27 Anion Gap 17 BUN 14 Creatinine 0.45 L Estim Creat Clear Calc 146.8 Estimated GFR > 60 POC Glucose 145 H 151 H Random Glucose 100 Fasting Glucose Lactic Acid Lactic Acid Fup @ 2Hr Lactic Acid Fup @ 4Hr Calcium 7.5 L Iron TIBC % Saturation Unsat Iron Binding Ferritin Total Bilirubin Direct Bilirubin AST ALT Alkaline Phosphatase Lactate Dehydrogenase Troponin I High Sens B-Natriuretic Peptide Total Protein Albumin Lipase Urine Color Urine Appearance Urine pH Ur Specific [place] Urine Protein Urine Glucose (UA) Urine Ketones Urine Blood Urine Nitrite Ur Leukocyte Esterase Urine RBC Urine WBC Ur Squamous Epith Cells Urine Bacteria COVID-19 (MARCELO) COVID-19 [employer] Com Blood Type Antibody Screen Crossmatch 07/07/20 07/07/20 07/08/20 16:37 21:17 05:41 WBC RBC Hgb Hct MCV MCH MCHC RDW Plt Count MPV Immature Gran % (Auto) Neut % (Auto) Lymph % (Auto) [place] % (Auto) Eos % (Auto) Baso % (Auto) Lymph # (Auto) [place] # (Auto) Eos # (Auto) Baso # (Auto) Abs Immat Gran (auto) Absolute Neuts (auto) Absolute Nucleated RBC Nucleated RBC % (auto) Smear Tech's Comments Smear Path Review PT 34.0 H INR 2.8 H APTT PTT (Heparin Protocol) Fibrinogen D-Dimer Sodium Potassium Chloride Carbon Dioxide Anion Gap BUN Creatinine Estim Creat Clear Calc Estimated GFR POC Glucose 142 H 127 H Random Glucose Fasting Glucose Lactic Acid Lactic Acid Fup @ 2Hr Lactic Acid Fup @ 4Hr Calcium Iron TIBC % Saturation Unsat Iron Binding Ferritin Total Bilirubin Direct Bilirubin AST ALT Alkaline Phosphatase Lactate Dehydrogenase Troponin I High Sens B-Natriuretic Peptide Total Protein Albumin Lipase Urine Color Urine Appearance Urine pH Ur Specific [place] Urine Protein Urine Glucose (UA) Urine Ketones Urine Blood Urine Nitrite Ur Leukocyte Esterase Urine RBC Urine WBC Ur Squamous Epith Cells Urine Bacteria COVID-19 (MARCELO) COVID-19 [employer] Com Blood Type Antibody Screen Crossmatch 07/08/20 07/08/20 07/08/20 05:41 05:41 07:37 WBC 30.7 H* RBC 3.47 L Hgb 9.7 L Hct 29.6 L MCV 85.3 MCH 28.0 MCHC 32.8 RDW 26.5 H Plt Count 163 D MPV Not Reportable Immature Gran % (Auto) Neut % (Auto) Lymph % (Auto) [place] % (Auto) Eos % (Auto) Baso % (Auto) Lymph # (Auto) [place] # (Auto) Eos # (Auto) Baso # (Auto) Abs Immat Gran (auto) Absolute Neuts (auto) Absolute Nucleated RBC 0.260 H Nucleated RBC % (auto) 0.8 H Smear Tech's Comments Smear Path Review PT INR APTT PTT (Heparin Protocol) Fibrinogen D-Dimer Sodium 132 L Potassium 3.3 Chloride 89 L Carbon Dioxide 30 H Anion Gap 16 BUN 14 Creatinine 0.51 Estim Creat Clear Calc 129.5 Estimated GFR > 60 POC Glucose 121 H Random Glucose 97 Fasting Glucose Lactic Acid Lactic Acid Fup @ 2Hr Lactic Acid Fup @ 4Hr Calcium 7.8 L Iron TIBC % Saturation Unsat Iron Binding Ferritin Total Bilirubin Direct Bilirubin AST ALT Alkaline Phosphatase Lactate Dehydrogenase Troponin I High Sens B-Natriuretic Peptide Total Protein Albumin Lipase Urine Color Urine Appearance Urine pH Ur Specific [place] Urine Protein Urine Glucose (UA) Urine Ketones Urine Blood Urine Nitrite Ur Leukocyte Esterase Urine RBC Urine WBC Ur Squamous Epith Cells Urine Bacteria COVID-19 (MARCELO) COVID-19 Clin Com Blood Type Antibody Screen Crossmatch 07/08/20 07/08/20 07/08/20 11:05 16:11 19:39 WBC RBC Hgb Hct MCV MCH MCHC RDW Plt Count MPV Immature Gran % (Auto) Neut % (Auto) Lymph % (Auto) [place] % (Auto) Eos % (Auto) Baso % (Auto) Lymph # (Auto) [place] # (Auto) Eos # (Auto) Baso # (Auto) Abs Immat Gran (auto) Absolute Neuts (auto) Absolute Nucleated RBC Nucleated RBC % (auto) Smear Tech's Comments Smear Path Review PT INR APTT PTT (Heparin Protocol) Fibrinogen D-Dimer Sodium Potassium Chloride Carbon Dioxide Anion Gap BUN Creatinine Estim Creat Clear Calc Estimated GFR POC Glucose 153 H 140 H 144 H Random Glucose Fasting Glucose Lactic Acid Lactic Acid Fup @ 2Hr Lactic Acid Fup @ 4Hr Calcium Iron TIBC % Saturation Unsat Iron Binding Ferritin Total Bilirubin Direct Bilirubin AST ALT Alkaline Phosphatase Lactate Dehydrogenase Troponin I High Sens B-Natriuretic Peptide Total Protein Albumin Lipase Urine Color Urine Appearance Urine pH Ur Specific [place] Urine Protein Urine Glucose (UA) Urine Ketones Urine Blood Urine Nitrite Ur Leukocyte Esterase Urine RBC Urine WBC Ur Squamous Epith Cells Urine Bacteria COVID-19 (MARCELO) COVID-19 [employer] Com Blood Type Antibody Screen Crossmatch 07/09/20 07/09/20 07/09/20 05:28 05:28 07:50 WBC 30.4 H* RBC 3.10 L Hgb 8.6 L Hct 26.3 L MCV 84.8 MCH 27.7 MCHC 32.7 RDW 26.6 H Plt Count 222 D MPV Not Reportable Immature Gran % (Auto) Neut % (Auto) Lymph % (Auto) [place] % (Auto) Eos % (Auto) Baso % (Auto) Lymph # (Auto) [place] # (Auto) Eos # (Auto) Baso # (Auto) Abs Immat Gran (auto) Absolute Neuts (auto) Absolute Nucleated RBC 0.140 H Nucleated RBC % (auto) 0.5 H Smear Tech's Comments Smear Path Review PT INR APTT PTT (Heparin Protocol) Fibrinogen D-Dimer Sodium 130 L Potassium 3.3 Chloride 88 L Carbon Dioxide 29 Anion Gap 16 BUN 14 Creatinine 0.48 L Estim Creat Clear Calc 137.6 Estimated GFR > 60 POC Glucose 133 H Random Glucose 100 Fasting Glucose Lactic Acid Lactic Acid Fup @ 2Hr Lactic Acid Fup @ 4Hr Calcium 7.6 L Iron TIBC % Saturation Unsat Iron Binding Ferritin Total Bilirubin Direct Bilirubin AST ALT Alkaline Phosphatase Lactate Dehydrogenase Troponin I High Sens B-Natriuretic Peptide Total Protein Albumin Lipase Urine Color Urine Appearance Urine pH Ur Specific [place] Urine Protein Urine Glucose (UA) Urine Ketones Urine Blood Urine Nitrite Ur Leukocyte Esterase Urine RBC Urine WBC Ur Squamous Epith Cells Urine Bacteria COVID-19 (MARCELO) COVID-19 [employer] Com Blood Type Antibody Screen Crossmatch 07/09/20 07/09/20 11:42 11:50 WBC RBC Hgb Hct MCV MCH MCHC RDW Plt Count MPV Immature Gran % (Auto) Neut % (Auto) Lymph % (Auto) [place] % (Auto) Eos % (Auto) Baso % (Auto) Lymph # (Auto) [place] # (Auto) Eos # (Auto) Baso # (Auto) Abs Immat Gran (auto) Absolute Neuts (auto) Absolute Nucleated RBC Nucleated RBC % (auto) Smear Tech's Comments Smear Path Review PT INR APTT PTT (Heparin Protocol) Fibrinogen D-Dimer Sodium Potassium Chloride Carbon Dioxide Anion Gap BUN Creatinine Estim Creat Clear Calc Estimated GFR POC Glucose 146 H Random Glucose Fasting Glucose Lactic Acid Lactic Acid Fup @ 2Hr Lactic Acid Fup @ 4Hr Calcium Iron TIBC % Saturation Unsat Iron Binding Ferritin Total Bilirubin Direct Bilirubin AST ALT Alkaline Phosphatase Lactate Dehydrogenase Troponin I High Sens B-Natriuretic Peptide Total Protein Albumin Lipase Urine Color YELLOW Urine Appearance HAZY Urine pH 5.5 Ur Specific [place] 1.025 Urine Protein NEG Urine Glucose (UA) NEG Urine Ketones 5 Urine Blood NEG Urine Nitrite NEG Ur Leukocyte Esterase NEG Urine RBC Urine WBC Ur Squamous Epith Cells Urine Bacteria COVID-19 (MARCELO) COVID-19 Clin Com Blood Type Antibody Screen Crossmatch Discharge Plan Discharge Patient Disposition: Xfer [facility] Referrals: Mahsa James NP [Primary Care Provider] - Tory Hurd PA-C [Physician [employer]] - Discharge Medications: New enoxaparin 100 mg/mL Syringe 90 mg subcut Q12H 30 Days Qty: 54 RF: 1 furosemide 20 mg tablet 20 mg PO QAM Qty: 30 RF: 0 oxycodone 5 mg Tablet 10 mg PO Q6H PRN (Reason: Pain, Moderate (Pain Scale 4-6) Qty: 20 RF: 0 Continued acetaminophen 325 mg Tablet 650 mg Q4-5H PRN (Reason: Pain) RF: 0 albuterol sulfate [ProAir HFA] 90 mcg/actuation Hfa Aerosol Inhaler INHALATION PRN (Reason: Wheezing) RF: 0 atorvastatin 20 mg Tablet 20 mg PO BEDTIME RF: 0 metformin 1,000 mg Tablet 1,000 mg PO BID RF: 0 metoprolol tartrate 50 mg Tablet 50 mg PO BID RF: 0 morphine 15 mg Tablet Extended Release 15 mg PO Q12H RF: 0 morphine 15 mg Tablet 15 mg PO Q4H PRN (Reason: Pain) RF: 0 multivitamin Tablet 1 tab PO DAILY RF: 0 Januvia 100 mg Tablet 100 mg PO DAILY RF: 0 Changed morphine 30 mg Tablet Extended Release 30 mg PO DAILY@1700 Qty: 0 RF: 0 Discontinued apixaban 5 mg Tablet 5 mg PO BID RF: 0 Discharge Orders: Discharge Order (Routine); Ordered 07/09/20 Ordered By: Chelsy Macdonald Diet: advance to usual diet and regular diet Activity on Discharge: Use cane or walker Other Ambulatory Orders: Add Laboratory Test (Routine) Timeframe: [id number] Facility: [facility] - Location: Laboratory Ordered By: Leeann Alvares Activity Restrictions/Additional Instructions: Gait training, strengthening, ADLs Keep dressing clean, dry and intact-no showering or tub baths Follow up with Orthopedics in 2 weeks Visit Report Forms: Patient Portal Discharge page Care Plan Goals: Restore function of left hip Health Concerns: Read below Plan of Treatment: Physical Therapy Pain management Discontinue Eliquis Start Lovenox 90 mg twice daily for lung clot treatment Start Furosemide 20 mg daily Monitor your weight To follow with Oncology as outpatient to continue treatment plan
[2020-07-09 14:23] LABS: COVID-19 Test Negative (Negative); IDNOW Serial# 9DD0AD1C
== END 2020-07-09 16:40 | disposition skilled nursing facility (03) | DRG 308 ==
LOC: HO.ED 21:17 → HO.IMC 07-01 18:25
PROVIDERS: Emergency Medicine Emergency Medical Services; Internal Medicine; Orthopaedic Surgery; Admitting Provider Student in an Organized Health Care Education/Training Program; Emergency Provider Emergency Medicine; PCP Nurse Practitioner Adult Health; Visit Provider Student in an Organized Health Care Education/Training Program
PROC: 0QS734Z Reposition Left Upper Femur with Internal Fixation Device, Percutaneous Approach (ICD-10-PCS; CPT 27245; principal; 2020-07-02 11:20)
DX: M84.552A Pathological fracture in neoplastic disease, left femur, initial encounter for fracture (principal); I26.99 Other pulmonary embolism without acute cor pulmonale; J96.11 Chronic respiratory failure with hypoxia; C78.00 Secondary malignant neoplasm of unspecified lung; C25.2 Malignant neoplasm of tail of pancreas; C78.7 Secondary malignant neoplasm of liver and intrahepatic bile duct; C79.51 Secondary malignant neoplasm of bone; I95.9 Hypotension, unspecified; D69.6 Thrombocytopenia, unspecified; Z85.42 Personal history of malignant neoplasm of other parts of uterus; D62 Acute posthemorrhagic anemia; Z20.822 Contact with and (suspected) exposure to COVID-19; D72.829 Elevated white blood cell count, unspecified; Z79.84 Long term (current) use of oral hypoglycemic drugs; Z88.0 Allergy status to penicillin; Z88.6 Allergy status to analgesic agent; Z86.718 Personal history of other venous thrombosis and embolism; Z79.891 Long term (current) use of opiate analgesic; Z79.899 Other long term (current) drug therapy
CPT/HCPCS: 27245; 36415; 71045; 71275; 73502; 80048; 80076; 81001; 81003; 82728; 82947; 83540; 83605; 83615; 83690; 83880; 84484; 85014; 85018; 85025; 85027; 85060; 85379; 85384; 85610; 85730; 86850; 86900; 86901; 86920; 87040; 87635; 93005; 96361; 96365; 96366; 96375; 97110; 97162; 97166; 97530; 97535; 99285; C1713; C1769; J0690; J1642; J1650; J1940; J2250; J2270; J2370; J2405; J3010; P9016; P9035; Q9967